=== PATIENT | female | born 2000 | race Caucasian/White ===

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

== ENCOUNTER → 2021-02-04 09:24 | Outpatient (BNVA) | payer MEDICAID, SELFPAY | PROVIDERS: PCP Nurse Practitioner Family; Visit Provider Surgery | DX: Z97.5 Presence of (intrauterine) contraceptive device (principal) | CPT/HCPCS: 99202 ==

== ENCOUNTER 2021-06-11 07:38 | Emergency (ER) | payer MEDICAID, SELFPAY ==
--- NOTE | ~2021-06-11 | CT_ITS ---
EXAMINATION: CT ABDOMEN AND PELVIS WITH CONTRAST CLINICAL INFORMATION: Lower quadrant pain. COMPARISON: Abdominal ultrasound 10/04/2016, pelvic ultrasound 01/24/2017 TECHNIQUE: Multidetector volumetric images were obtained from the superior aspect of the liver through the pubic symphysis following administration 85 mL of Omnipaque 350 intravenous contrast. Sagittal and coronal reformatted images were obtained on the technologist's workstation. Oral contrast: No This CT examination was performed using dose optimization techniques as appropriate, variously including the following: *Automated exposure control *Adjustment of mA and/or kV according to patient size (this includes techniques or standardized protocols for targeted exams where dose is matched to indication/reason for exam; i.e. extremities or head) *Use of iterative reconstruction technique DLP: 593 mGy-cm FINDINGS: There are scattered respiratory motion artifact in the abdomen and upper pelvis. LUNG BASES: The visualized lung bases are unremarkable. LIVER, GALLBLADDER, AND BILIARY TREE: The liver is normal in size, shape, and attenuation. No focal hepatic lesion or biliary ductal dilatation is present. The gallbladder is unremarkable with no evidence of radiopaque gallstones, gallbladder wall thickening, or obvious pericholecystic inflammatory changes. PANCREAS: Pancreatic duct is upper limits of normal within the pancreatic head. Suspect possible divisum duct arrangement. The pancreas is normal in size and contour and attenuation. There is no peripancreatic inflammatory changes. SPLEEN: Unremarkable. ADRENAL GLANDS: Unremarkable. KIDNEYS AND URETERS: The kidneys are normal in size, shape, and attenuation. No hydronephrosis, hydroureter, or calculi seen. No perinephric stranding. BLADDER: Unremarkable. GASTROINTESTINAL TRACT: There is no bowel obstruction or focal inflammatory changes in the bowel or mesentery. Moderate stool is present in the right colon. The appendix is not seen with certainty. There are no inflammatory changes seen around the cecum or terminal ileum. There is no pneumatosis or free air. No ascites or fluid collection. ABDOMINAL WALL: No significant hernia is appreciated. LYMPH NODES: No lymphadenopathy VASCULAR: Unremarkable. PELVIC VISCERA: Incidental dominant follicle left ovary and right ovary, fall from approximately 1.5 cm. Uterus unremarkable. No ascites. OSSEOUS STRUCTURES: Unremarkable. CT/CT abdomen pelvis w con IMPRESSION: 1. No bowel obstruction or focal inflammatory changes in bowel or mesentery. 2. No adnexal mass or ascites. 3. No biliary ductal dilatation or hydronephrosis. 4. Exam degraded by patient respiratory motion artifact.
[2021-06-11 07:46] VITALS: BP 110/76; PULSE 76; RESP 18; TEMP 36.6; O2SAT 100; BMI 18.1
--- NOTE | 2021-06-11 08:06 | ED_ITS ---
HPI - Abdominal Pain General Chief Complaint: Abdominal Pain Stated Complaint: Lower abd pain Time Seen by Provider: 06/11/21 08:02 Source: patient Mode of arrival: ambulatory Limitations: no limitations History of Present Illness MD elicited complaint: abdominal pain Pertinent past history: none Onset (ago): week(s) (1) Pain Consistency: intermittent Location: suprapubic Severity: moderate Quality: cramping Radiation: none Migration to: no migration Exacerbating factors: movement Relieving factors: nothing Associated symptoms: diarrhea and chills Related Data Home Medications Medication Instructions Recorded Confirmed valacyclovir 1 gram tablet 1,000 mg PO DAILY 02/04/21 02/04/21 Allergies Allergy/AdvReac Type Severity Reaction Status Date / Time apple [APPLES] Allergy Unknown THROAT Verified 03/03/21 15:55 ITCHY peach [PEACHES] Allergy Unknown ITCHY Verified 03/03/21 15:55 THROAT Review of Systems Review of Systems Constitutional : No Weight loss, No Fever, No Chills ENT/Mouth : No sore throat, No Rhinorrhea Eyes: No Swelling, No Redness Cardiovascular : No Chest Pain, No SOB, NoEdema Respiratory : No Cough, No Sputum, No Wheezing Gastrointestinal : Positive Nausea, no Vomiting, positive Diarrhea, positive abdominal Pain, No Hematochezia, No Melena Genitourinary : No Dysuria, No Urinary Frequency, No Hematuria, No Urgency Musculoskeletal : No joint pain, No Myalgias, No Joint Swelling Skin : No Skin Lesions, No rash Neuro : No Weakness, No Numbness, No Dizziness, No Headache Psych : No Anxiety/Panic, No Depression Heme/Lymph: No Bruising, No Lymphadenopathy Endocrine : No Polyuria, No Polydipsia All other systems reviewed and are negative. Physical Exam Vital Signs: Vital Signs: Last Vital Signs Temp 98 F 06/11/21 07:46 Pulse 59 06/11/21 08:47 Resp 16 06/11/21 08:47 BP 104/57 L 06/11/21 08:47 Pulse Ox 100 06/11/21 08:47 Body Mass Index 18.1 Appearance: Alert. Oriented X3. No acute distress. Eyes: Pupils equal, round and reactive to light. ENT: Pharynx normal. Neck: Normal inspection. Neck supple. CVS: Normal heart rate and rhythm. Pulses normal. Respiratory: No respiratory distress. Breath sounds normal. Abdomen: Soft and moderate lower abdomina pain no rebound or guarding Skin: Skin warm and dry. Normal skin color. Normal skin turgor. Extremities: No lower extremity edema. No calf ttp Neuro: Oriented X 3. No motor deficit. No sensory deficit. Course Course Course Narrative: patient feels better, stable for DC, stable labs and CT scan MDM - Abdominal Pain MDM Narrative Medical decision making narrative: 20 yo female with no sig PMH here with lower abdominal pain, diarrhea - no prior surgeries no sick contact/food exposure/antibiotics/family hx of IBD at this time will need labs UA/UPT, CT scan to r/o IBD, colitis, dispo per results and findings. IVF, IV morphine for pain. Lab Data Result diagrams: 06/11/21 08:34 06/11/21 08:34 Labs: Lab Results 06/11/21 06/11/21 06/11/21 Range/Units 08:34 08:34 08:34 WBC 5.1 (4.8-10.8) X10*3/uL RBC 4.37 (4.20-5.50) X10*6/uL Hgb 13.7 (12.0-16.0) g/dl Hct 40.4 (37-47) % MCV 92.4 (80-98) fL MCH 31.4 (27.0-33.0) pg MCHC 33.9 (31.0-35.0) g/dl RDW 12.2 (11.0-16.0) % Plt Count 265 (160-400) X10*3/uL MPV 10.4 (9.4-12.3) fL Immature Gran % (Auto) 0.2 (0.0-0.4) % Neut % (Auto) 55.6 (45-73) % Lymph % (Auto) 33.3 (20-40) % [place] % (Auto) 9.3 (2-11) % Eos % (Auto) 1.2 (0-4) % Baso % (Auto) 0.4 (0-2) % Lymph # (Auto) 1.7 (1.2-4.9) X10*3/uL [place] # (Auto) 0.5 (0.1-1.2) X10*3/uL Eos # (Auto) 0.1 (0.0-0.4) X10*3/uL Baso # (Auto) 0.0 (0.0-0.2) X10*3/uL Abs Immat Gran (auto) 0.01 (0.00-0.03) X10*3/uL Absolute Neuts (auto) 2.8 (2.0-8.3) X10*3/uL Absolute Nucleated RBC 0.000 (0.0-0.012) X10*3/uL Nucleated RBC % (auto) 0.0 (0.0-0.2) /100WBC Sodium 137 (135-145) mmol/L Potassium 4.4 (3.3-5.1) mmol/L Chloride 107 (96-108) mmol/L Carbon Dioxide 21 L (22-29) mmol/L Anion Gap 13 (12-20) BUN 8 L D (9-16) mg/dL Creatinine 0.79 (0.5-1.4) mg/dL Estim Creat Clear Calc 73.8 Estimated GFR > 60 Random Glucose 96 (60-115) mg/dL Calcium 9.4 (8.4-10.2) mg/dL Magnesium 1.8 (1.6-2.6) mg/dL Total Bilirubin 0.2 (0.0-1.0) mg/dL Direct Bilirubin < 0.2 (0.0-0.5) mg/dL AST 20 (5-31) U/L ALT 11 (0-31) U/L Alkaline Phosphatase 77 (39-117) U/L Total Protein 7.5 (6.5-8.0) g/dL Albumin 4.4 (3.5-5.0) g/dL Lipase 18 (8-78) U/L Urine Color Urine Appearance Urine pH (5.0-8.0) Ur Specific [place] (1.005-1.025) Urine Protein (NEG-TRACE) MG/DL Urine Glucose (UA) (NEG) MG/DL Urine Ketones (NEG) MG/DL Urine Blood (NEG) Urine Nitrite (NEG) Ur Leukocyte Esterase (NEG) Urine Test (NEGATIVE) COVID-19 (JF) Negative (Negative) COVID-19 Clin Com See Note 06/11/21 06/11/21 Range/Units 08:34 08:34 WBC (4.8-10.8) X10*3/uL RBC (4.20-5.50) X10*6/uL Hgb (12.0-16.0) g/dl Hct (37-47) % MCV (80-98) fL MCH (27.0-33.0) pg MCHC (31.0-35.0) g/dl RDW (11.0-16.0) % Plt Count (160-400) X10*3/uL MPV (9.4-12.3) fL Immature Gran % (Auto) (0.0-0.4) % Neut % (Auto) (45-73) % Lymph % (Auto) (20-40) % [place] % (Auto) (2-11) % Eos % (Auto) (0-4) % Baso % (Auto) (0-2) % Lymph # (Auto) (1.2-4.9) X10*3/uL [place] # (Auto) (0.1-1.2) X10*3/uL Eos # (Auto) (0.0-0.4) X10*3/uL Baso # (Auto) (0.0-0.2) X10*3/uL Abs Immat Gran (auto) (0.00-0.03) X10*3/uL Absolute Neuts (auto) (2.0-8.3) X10*3/uL Absolute Nucleated RBC (0.0-0.012) X10*3/uL Nucleated RBC % (auto) (0.0-0.2) /100WBC Sodium (135-145) mmol/L Potassium (3.3-5.1) mmol/L Chloride (96-108) mmol/L Carbon Dioxide (22-29) mmol/L Anion Gap (12-20) BUN (9-16) mg/dL Creatinine (0.5-1.4) mg/dL Estim Creat Clear Calc Estimated GFR Random Glucose (60-115) mg/dL Calcium (8.4-10.2) mg/dL Magnesium (1.6-2.6) mg/dL Total Bilirubin (0.0-1.0) mg/dL Direct Bilirubin (0.0-0.5) mg/dL AST (5-31) U/L ALT (0-31) U/L Alkaline Phosphatase (39-117) U/L Total Protein (6.5-8.0) g/dL Albumin (3.5-5.0) g/dL Lipase (8-78) U/L Urine Color YELLOW Urine Appearance CLEAR Urine pH 6.0 (5.0-8.0) Ur Specific [place] 1.025 (1.005-1.025) Urine Protein NEG (NEG-TRACE) MG/DL Urine Glucose (UA) NEG (NEG) MG/DL Urine Ketones NEG (NEG) MG/DL Urine Blood NEG (NEG) Urine Nitrite NEG (NEG) Ur Leukocyte Esterase NEG (NEG) Urine Test NEGATIVE (NEGATIVE) COVID-19 (JF) (Negative) COVID-19 Clin Com Discharge Plan Discharge Clinical Impression: Abdominal pain Qualifiers: Abdominal location: lower abdomen, unspecified Qualified Code(s): R10.30 - Lower abdominal pain, unspecified Patient Disposition: Home, Self-Care Instructions: Abdominal Pain (ED) Additional Instructions: return to ED for any worsening symptoms or concerns Prescriptions: No Action valacyclovir 1 gram tablet 1,000 mg PO DAILY RF: 0 Referrals: [facility] [Primary Care Provider] - 2 days (if not better) Stand Alone Forms: Work/School Release [facility] Past Medical History Attestation statement: The following information was validated with the patient. Medical History COVID-19 virus infection Herpes Surgical History [place] teeth extracted Family History Family History Mother Cancer of unknown origin Social History Social History (Updated 06/11/21 @ 08:19 by Breanna Eubanks DO) Alcohol intake: unknown Patient Tobacco Use Status: Never used Tobacco Use of substances other than those prescribed or required for medical reasons: Yes Substance Use Type: Marijuana Advance Directives: No Advance Directives Information Provided: Yes Patient : No
[2021-06-11 08:44] LABS: MANUAL DIFF FLAG NO
[2021-06-11] MEDS: 0.9 % Sodium Chloride 1,000 ML 999 ML IVCONT (08:45)
[2021-06-11] MEDS: Ketorolac Tromethamine 15 MG/ML VIAL IVPUSH (08:45)
[2021-06-11 08:47] VITALS: BP 104/57; PULSE 59; RESP 16; O2SAT 100
[2021-06-11 08:52] LABS: Basophils Percent Auto 0.4 % (0-2); Eosinophils Absolute Auto 0.1 X10*3/uL (0.0-0.4); Eosinophils Percent Auto 1.2 % (0-4); Hematocrit 40.4 % (37-47); Hemoglobin 13.7 g/dl (12.0-16.0); Imm Gran Abs Auto 0.01 X10*3/uL (0.00-0.03); Imm Gran Pct Auto 0.2 % (0.0-0.4); Lymphocytes Absolute Auto 1.7 X10*3/uL (1.2-4.9); Lymphocytes Percent Auto 33.3 % (20-40); Mean Corpuscular HGB Conc 33.9 g/dl (31.0-35.0); Mean Corpuscular Hemoglobin 31.4 pg (27.0-33.0); Mean Corpuscular Volume 92.4 fL (80-98); Mean Platelet Volume 10.4 fL (9.4-12.3); Monocytes Absolute Auto 0.5 X10*3/uL (0.1-1.2); Monocytes Percent Auto 9.3 % (2-11); Neutrophils Absolute Auto 2.8 X10*3/uL (2.0-8.3); Neutrophils Percent Auto 55.6 % (45-73); Platelet Count 265 X10*3/uL (160-400); Red Blood Count 4.37 X10*6/uL (4.20-5.50); Red Cell Distribution Width 12.2 % (11.0-16.0); White Blood Count 5.1 X10*3/uL (4.8-10.8)
[2021-06-11 08:53] LABS: Glucose Urine UA NEG (NEG); Leukocyte Esterase Urine NEG (NEG); Nitrite Urine NEG (NEG); Specific Gravity - Urine 1.025 (1.005-1.025); Urine Blood NEG (NEG); Urine Ketones NEG (NEG); Urine Protein NEG (NEG-TRACE)
[2021-06-11 08:55] LABS: Appearance Urine CLEAR; Color Urine YELLOW; UPreg QC Valid YES; Urine Pregnancy NEGATIVE (NEGATIVE)
[2021-06-11 09:07] LABS: COVID-19 Test Negative (Negative)
[2021-06-11 09:34] LABS: Alanine Aminotransferase 11 U/L (0-31); Albumin Level 4.4 g/dL (3.5-5.0); Alkaline Phosphatase 77 U/L (39-117); Anion Gap 13 (12-20); Aspartate Amino Transferase 20 U/L (5-31); Bilirubin Direct < 0.2 mg/dL (0.0-0.5); Bilirubin Total 0.2 mg/dL (0.0-1.0); Blood Urea Nitrogen 8 mg/dL (9-16); Calcium 9.4 mg/dL (8.4-10.2); Carbon Dioxide 21 mmol/L (22-29); Chloride 107 mmol/L (96-108); Creatinine Clr Calc Pharmacy 73.8; Estimated Glomerular Filt Rate > 60; Glucose Random 96 mg/dL (60-115); Lipase 18 U/L (8-78); Magnesium 1.8 mg/dL (1.6-2.6); Potassium 4.4 mmol/L (3.3-5.1); Sodium 137 mmol/L (135-145); Total Protein 7.5 g/dL (6.5-8.0)
[2021-06-11] MEDS: iohexoL 350 MG/ML 100 ML INFUS..BTL IV (10:38)
== END 2021-06-11 12:15 | disposition home or self-care (01) ==
PROVIDERS: Emergency Provider Emergency Medicine
DX: R10.30 Lower abdominal pain, unspecified (principal); F12.90 Cannabis use, unspecified, uncomplicated; Z20.822 Contact with and (suspected) exposure to COVID-19; Z79.899 Other long term (current) drug therapy
CPT/HCPCS: 36415; 74177; 80048; 80076; 81003; 81025; 83690; 83735; 85025; 87635; 96365; 96375; 99284; J1885; J2270; J2405; Q9967

== ENCOUNTER 2021-12-26 02:11 | Emergency (ER) | payer MEDICAID, SELFPAY ==
[2021-12-26 02:18] VITALS: BP 108/82; BP 128/90; PULSE 110; PULSE 92; RESP 20; TEMP 36.3; O2SAT 100; BMI 32.3
--- NOTE | 2021-12-26 03:11 | ECG_ITS ---
Test Reason : nausea/vomiting Blood Pressure : / mmHG Vent. Rate : 076 BPM Atrial Rate : 076 BPM P-R Int : 134 ms QRS Dur : 076 ms QT Int : 392 ms P-R-T Axes : 031 053 028 degrees QTc Int : 441 ms Normal sinus rhythm with sinus arrhythmia Normal ECG When compared with ECG of 11-JUL-2019 23:35, Nonspecific T wave abnormality no longer evident in Anterior leads Referred By: Renetta Hunter Electronically Signed By:SUSIE SANCHEZ
[2021-12-26 03:24] VITALS: BP 113/69; PULSE 95; RESP 16; TEMP 36.8; O2SAT 95
[2021-12-26 03:44] LABS: Basophils Percent Auto 0.2 % (0-2); Eosinophils Percent Auto 0.1 % (0-4); Hematocrit 42.1 % (37.0-47.0); Hemoglobin 14.3 g/dl (12.0-16.0); Imm Gran Abs Auto 0.09 X10*3/uL (0.00-0.03); Imm Gran Pct Auto 0.4 % (0.0-0.4); Lymphocytes Absolute Auto 1.6 X10*3/uL (1.2-4.9); Lymphocytes Percent Auto 7.8 % (20-40); MANUAL DIFF FLAG SCAN; Mean Corpuscular Hemoglobin 29.6 pg (27.0-33.0); Mean Corpuscular Volume 87.2 fL (80.0-98.0); Monocytes Absolute Auto 1.6 X10*3/uL (0.1-1.2); Monocytes Percent Auto 7.9 % (2-11); Neutrophils Absolute Auto 16.9 x10*3/uL (2.0-8.3); Neutrophils Percent Auto 83.6 % (45-73); Platelet Count 332 X10*3/uL (160-400); Red Blood Count 4.83 X10*6/uL (4.20-5.50); Red Cell Distribution Width 12.4 % (11.0-16.0); SCAN SMEAR FLAG 1; White Blood Count 20.2 X10*3/uL (4.8-10.8)
[2021-12-26 03:49] LABS: SLIDE REVIEW VERIFIED
[2021-12-26 03:58] LABS: COVID-19 Test Negative (Negative)
[2021-12-26] MEDS: ondansetron HCL 4 MG/2 ML VIAL IVPUSH ×2 (04:00→09:22)
[2021-12-26 04:04] VITALS: BP 110/77; PULSE 85; RESP 14; TEMP 36.6; O2SAT 99
[2021-12-26 04:04] LABS: Alanine Aminotransferase 21 U/L (0-31); Albumin Level 4.3 g/dL (3.5-5.0); Alkaline Phosphatase 78 U/L (39-117); Anion Gap 14 (12-20); Aspartate Amino Transferase 21 U/L (5-31); Bilirubin Direct 0.2 mg/dL (0.0-0.5); Bilirubin Total 0.4 mg/dL (0.0-1.0); Blood Urea Nitrogen 10 mg/dL (9-16); Calcium 9.3 mg/dL (8.4-10.2); Carbon Dioxide 22 mmol/L (22-29); Chloride 106 mmol/L (96-108); Creatinine Clr Calc Pharmacy 96.1; Estimated Glomerular Filt Rate > 60; Glucose Random 114 mg/dL (60-115); Lipase 13 U/L (8-78); Potassium 3.5 mmol/L (3.3-5.1); Sodium 138 mmol/L (135-145); Total Protein 7.7 g/dL (6.5-8.0)
[2021-12-26 04:11] LABS: Appearance Urine HAZY; Color Urine YELLOW; Glucose Urine UA NEG (NEG); Leukocyte Esterase Urine NEG (NEG); Nitrite Urine NEG (NEG); PH 7.5 (5.0-8.0); UACC Culture Trigger NO; Urine Blood 3+ (NEG); Urine Ketones 5 MG/DL (NEG); Urine Protein NEG (NEG-TRACE)
[2021-12-26 04:14] LABS: UPreg QC Valid YES; Urine Pregnancy NEGATIVE (NEGATIVE)
--- NOTE | 2021-12-26 04:27 | ED.NAVMDI ---
HPI - Nausea/Vomiting/Diarrhea General Chief complaint: Nausea/Vomiting/Diarrhea Stated complaint: uncontrollable bladder/vomiting/diarrhea Time Seen by Provider: 12/26/21 03:45 Source: patient Mode of arrival: EMS History of Present Illness HPI Narrative: 21-year-old female without significant past medical history presents with onset of nausea, vomiting and associated diarrhea that began at approximately midnight but she denies any associated abdominal pain, shortness of breath, fever, chills and states that she last ate pizza and is unsure if her symptoms are due to bed food . In addition, patient denies any urinary pain /burning / frequency and states that her LMP is October/2021. Patient does endorse that she smoke marijuana at approximately 14:00 yesterday but otherwise she has had these symptoms previously but they were associated with her alcohol intake. She denies any recent alcohol intake. Patient is concerned about having urinary incontinence with significant episode of nausea and vomiting. Related Data Home Medications Medication Instructions Recorded Confirmed valacyclovir 1 gram tablet 1,000 mg PO DAILY 02/04/21 02/04/21 Previous Rx's Medication Instructions Recorded ondansetron 4 mg disintegrating 4 mg PO Q6H PRN #7 tab 12/26/21 tablet Allergies Allergy/AdvReac Type Severity Reaction Status Date / Time apple [APPLES] Allergy Unknown THROAT Verified 03/03/21 15:55 ITCHY peach [PEACHES] Allergy Unknown ITCHY Verified 03/03/21 15:55 THROAT Review of Systems Review of Systems: Pertinent Positives and negatives as per the HPI 10 point review of systems is otherwise negative. PMFSH Past Medical History Source: nursing notes reviewed Medical History COVID-19 virus infection Herpes Surgical History [place] teeth extracted Family History Family History Mother Cancer of unknown origin Social History Social History Alcohol intake: unknown Patient Tobacco Use Status: Never used Tobacco Use of substances other than those prescribed or required for medical reasons: Refusing to respond Substance Use Type: Marijuana Advance Directives: No Patient : No Physical Exam Vital Signs: Vital Signs: Last Vital Signs Temp 97.6 F 12/26/21 06:02 Pulse 93 12/26/21 07:01 Resp 14 12/26/21 07:01 BP 108/65 12/26/21 07:01 Pulse Ox 99 12/26/21 07:01 BMI result Body Mass Index 32.3 VITAL SIGNS: Reviewed. GENERAL: Well developed, well nourished, in no acute distress. HEAD: Normocephalic/atraumatic EYES: PERRLA, EOMI OROPHARYNX: no oral lesions noted, posterior pharynx clear LUNGS: Normal breath sounds. No adventitious sounds or accessory muscle use. SpO2<99> CARDIOVASCULAR: Regular rate and rhythm without noted murmurs ABDOMEN: Soft, non-tender, non-distended with bowel sounds. SKIN: Inspection of the skin reveals no rashes NEUROLOGIC: Alert and oriented x 4. Strength and sensation to light touch were grossly intact x 4. Course Course Course Narrative: 21-year-old female with history and clinical presentation suggestive of possible gastroenteritis versus marijuana associated nausea and vomiting. Will rule out ectopic / and at this time doubt renal colic, appendicitis. Review of all investigations without acute findings in noted leukocytosis And is felt to be stress response to patient's multiple episodes of nausea and vomiting as abdominal exam is otherwise benign and there are no other sources of infectious etiology. patient received IV fluid resuscitation, antiemetics and on p.o. challenge is noted to tolerate oral intake without difficulty. Patient was also provided with some medication for nausea and vomiting induced gastritis. MDM - Nausea/Vomiting/Diarrhea Lab Data Result diagrams: 12/26/21 03:35 12/26/21 03:35 Labs: Lab Results 12/26/21 12/26/21 12/26/21 Range/Units 03:35 03:35 03:35 WBC 20.2 H (4.8-10.8) X10*3/uL RBC 4.83 (4.20-5.50) X10*6/uL Hgb 14.3 (12.0-16.0) g/dl Hct 42.1 (37.0-47.0) % MCV 87.2 (80.0-98.0) fL MCH 29.6 (27.0-33.0) pg MCHC 34.0 (31.0-35.0) g/dl RDW 12.4 (11.0-16.0) % Plt Count 332 (160-400) X10*3/uL MPV 10.0 (9.4-12.3) fL Immature Gran % (Auto) 0.4 (0.0-0.4) % Neut % (Auto) 83.6 H (45-73) % Lymph % (Auto) 7.8 L (20-40) % [place] % (Auto) 7.9 (2-11) % Eos % (Auto) 0.1 (0-4) % Baso % (Auto) 0.2 (0-2) % Lymph # (Auto) 1.6 (1.2-4.9) X10*3/uL [place] # (Auto) 1.6 H (0.1-1.2) X10*3/uL Eos # (Auto) 0.0 (0.0-0.4) X10*3/uL Baso # (Auto) 0.0 (0.0-0.2) X10*3/uL Abs Immat Gran (auto) 0.09 H (0.00-0.03) X10*3/uL Absolute Neuts (auto) 16.9 H (2.0-8.3) x10*3/uL Absolute Nucleated RBC 0.000 (0.0-0.012) X10*3/uL Nucleated RBC % (auto) 0.0 (0.0-0.2) /100WBC Smear Tech's Comments VERIFIED Sodium 138 (135-145) mmol/L Potassium 3.5 D (3.3-5.1) mmol/L Chloride 106 (96-108) mmol/L Carbon Dioxide 22 (22-29) mmol/L Anion Gap 14 (12-20) BUN 10 (9-16) mg/dL Creatinine 0.81 (0.5-1.4) mg/dL Estim Creat Clear Calc 96.1 Estimated GFR > 60 Random Glucose 114 (60-115) mg/dL Calcium 9.3 (8.4-10.2) mg/dL Total Bilirubin 0.4 (0.0-1.0) mg/dL Direct Bilirubin 0.2 (0.0-0.5) mg/dL AST 21 (5-31) U/L ALT 21 (0-31) U/L Alkaline Phosphatase 78 (39-117) U/L Total Protein 7.7 (6.5-8.0) g/dL Albumin 4.3 (3.5-5.0) g/dL Lipase 13 (8-78) U/L Urine Color Urine Appearance Urine pH (5.0-8.0) Ur Specific [place] (1.005-1.025) Urine Protein (NEG-TRACE) MG/DL Urine Glucose (UA) (NEG) MG/DL Urine Ketones (NEG) MG/DL Urine Blood (NEG) Urine Nitrite (NEG) Ur Leukocyte Esterase (NEG) Urine RBC (0) /HPF Urine WBC (0-4) /HPF Ur Squamous Epith Cells /LPF Calcium Oxalate Crystal /LPF Urine Bacteria /LPF Urine Mucus /LPF Urine Test (NEGATIVE) COVID-19 (JF) Negative (Negative) COVID-19 Clin Com See Note 12/26/21 12/26/21 Range/Units 03:59 03:59 WBC (4.8-10.8) X10*3/uL RBC (4.20-5.50) X10*6/uL Hgb (12.0-16.0) g/dl Hct (37.0-47.0) % MCV (80.0-98.0) fL MCH (27.0-33.0) pg MCHC (31.0-35.0) g/dl RDW (11.0-16.0) % Plt Count (160-400) X10*3/uL MPV (9.4-12.3) fL Immature Gran % (Auto) (0.0-0.4) % Neut % (Auto) (45-73) % Lymph % (Auto) (20-40) % [place] % (Auto) (2-11) % Eos % (Auto) (0-4) % Baso % (Auto) (0-2) % Lymph # (Auto) (1.2-4.9) X10*3/uL [place] # (Auto) (0.1-1.2) X10*3/uL Eos # (Auto) (0.0-0.4) X10*3/uL Baso # (Auto) (0.0-0.2) X10*3/uL Abs Immat Gran (auto) (0.00-0.03) X10*3/uL Absolute Neuts (auto) (2.0-8.3) x10*3/uL Absolute Nucleated RBC (0.0-0.012) X10*3/uL Nucleated RBC % (auto) (0.0-0.2) /100WBC Smear Tech's Comments Sodium (135-145) mmol/L Potassium (3.3-5.1) mmol/L Chloride (96-108) mmol/L Carbon Dioxide (22-29) mmol/L Anion Gap (12-20) BUN (9-16) mg/dL Creatinine (0.5-1.4) mg/dL Estim Creat Clear Calc Estimated GFR Random Glucose (60-115) mg/dL Calcium (8.4-10.2) mg/dL Total Bilirubin (0.0-1.0) mg/dL Direct Bilirubin (0.0-0.5) mg/dL AST (5-31) U/L ALT (0-31) U/L Alkaline Phosphatase (39-117) U/L Total Protein (6.5-8.0) g/dL Albumin (3.5-5.0) g/dL Lipase (8-78) U/L Urine Color YELLOW Urine Appearance HAZY Urine pH 7.5 (5.0-8.0) Ur Specific [place] 1.020 (1.005-1.025) Urine Protein NEG (NEG-TRACE) MG/DL Urine Glucose (UA) NEG (NEG) MG/DL Urine Ketones 5 (NEG) MG/DL Urine Blood 3+ H (NEG) Urine Nitrite NEG (NEG) Ur Leukocyte Esterase NEG (NEG) Urine RBC 1-4 (0) /HPF Urine WBC 1-4 (0-4) /HPF Ur Squamous Epith Cells 2+ /LPF Calcium Oxalate Crystal 2+ /LPF Urine Bacteria 3+ /LPF Urine Mucus 2+ /LPF Urine Test NEGATIVE (NEGATIVE) COVID-19 (JF) (Negative) COVID-19 Clin Com ECG Data Attestation: I personally reviewed and interpreted this ECG as follows: Prior ECG tracings: available for review Interpretation: NSR, HR- 76, no STEMI, VA /QRS /QTC are within normal limits. Discharge Plan Discharge Clinical Impression: Gastroenteritis Patient Disposition: Home, Self-Care Instructions: Gastritis (ED), Diet for Stomach Ulcers and Gastritis (ED), Gastroenteritis (ED) Additional Instructions: Recommend using [id number] Maalox for additional symptom relief of your stomach. Follow-up with your primary care provider on Tuesday. Return to the ER for worsening symptoms. Prescriptions: New ondansetron 4 mg tablet,disintegrating 4 mg PO Q6H PRN (Reason: nausea and vomiting) Qty: 7 0RF No Action valacyclovir 1 gram tablet 1,000 mg PO DAILY 0RF
[2021-12-26 04:32] LABS: Bacteria Urine 3+ /LPF; Mucus Urine 2+ /LPF; Squamous Epithelial Cell Urine 2+ /LPF
[2021-12-26 04:33] LABS: Calcium Oxalate Crystals Urine 2+ /LPF
[2021-12-26] MEDS: 0.9 % Sodium Chloride 1,000 ML 999 ML IV (04:44)
[2021-12-26 06:02] VITALS: BP 111/73; PULSE 75; RESP 16; TEMP 36.4; O2SAT 100
[2021-12-26 07:01] VITALS: BP 108/65; PULSE 93; RESP 14; O2SAT 99
[2021-12-26] MEDS: Prochlorperazine Edisylate 10 MG/2 ML VIAL IVPUSH (07:23)
[2021-12-26] MEDS: Lidocaine HCl Viscous 2 % 15 ML SOLUTION 10 ML MUCOUS MEM (08:25)
[2021-12-26] MEDS: Magnesium Hydrox/Alum Hydrox 30 ML ORAL.SUSP PO (08:25)
[2021-12-26 09:25] VITALS: BP 110/62; PULSE 96; RESP 14; O2SAT 100
== END 2021-12-26 10:24 | disposition home or self-care (01) ==
PROVIDERS: Student in an Organized Health Care Education/Training Program; Emergency Provider Emergency Medicine
DX: K52.9 Noninfective gastroenteritis and colitis, unspecified (principal); Z20.822 Contact with and (suspected) exposure to COVID-19; F12.90 Cannabis use, unspecified, uncomplicated
CPT/HCPCS: 80048; 80076; 81001; 81025; 83690; 85025; 87635; 93005; 96361; 96374; 96375; 96376; 99284; 99285; J2405

== ENCOUNTER → 2022-02-02 14:34 | Outpatient (BNVA) | payer MEDICAID, SELFPAY | PROVIDERS: PCP Nurse Practitioner Family; Referring Provider Nurse Practitioner Family; Visit Provider Surgery | DX: Z97.5 Presence of (intrauterine) contraceptive device (principal) | CPT/HCPCS: 99212 ==

== ENCOUNTER → 2022-03-02 10:18 | Outpatient (BNVA) | payer MEDICAID, SELFPAY | PROVIDERS: PCP Pediatrics; Visit Provider Surgery | DX: R10.11 Right upper quadrant pain (principal) | CPT/HCPCS: 99212 ==

== ENCOUNTER 2022-03-03 09:25 | Day surgery (SDC) | payer MEDICAID, SELFPAY ==
[2022-02-25 13:54] VITALS: BMI 23.0
[2022-03-03 09:55] VITALS: BP 113/73; PULSE 89; RESP 16; TEMP 36.5; O2SAT 97
[2022-03-03 09:56] LABS: UPreg QC Valid YES; Urine Pregnancy NEGATIVE (NEGATIVE)
--- NOTE | 2022-03-03 10:00 | P.CONAN_ITS ---
[facility] Active Problems Active Problems: All Active Problems (Updated 03/02/22 @ 10:42 by John Song MD) Right upper quadrant abdominal pain (Acute) Chronic cholecystitis (Acute) Nexplanon in place (Acute) Past Medical History Medical History COVID-19 vaccine series completed COVID-19 virus infection Depression GERD (gastroesophageal reflux disease) Herpes Functional capacity: independent ambulation Patient : No Family History Family History Mother Cancer of unknown origin Family history of problems with anesthesia: No Surgical History Surgical History [place] teeth extracted History of Problems with Anesthesia: No Social History Social History Are you a primary health care / medical job titles to a significant other at home: No Do you presently have visiting nurse or other home services: No Alcohol intake: unknown Patient Tobacco Use Status: Never used Tobacco Use of substances other than those prescribed or required for medical reasons: Yes Substance Use Type: Marijuana Substance Use Type Other:: advised to hold pre-op Substance Use Frequency: Daily Have you been hit, kicked, punched, or otherwise hurt by someone within the past year? If so, by whom?: No Are you DNR?: No Advance Directives: No Advance Directives Information Provided: Yes (brochure mailed) Advance Directives on File: No Recently lost weight without trying: No Nutrition Risks: No Nutritional Risk Patient : No FDLMP: 02/22/22 : No Poor oral hygiene: No Meds Allergies Allergy/AdvReac Type Severity Reaction Status Date / Time tree and shrub pollen Allergy Mild Unknown Verified 02/26/22 14:37 apple [APPLES] Allergy Unknown THROAT Verified 03/03/21 15:55 ITCHY peach [PEACHES] Allergy Unknown ITCHY Verified 03/03/21 15:55 THROAT Active Medications: Current Medications Cefazolin Sodium/Dextrose (Ancef) 2 gm in 50 mls @ 100 mls/hr IV PREOP ONE Stop: 03/03/22 10:12 Lactated Ringer's (Lr) 1,000 mls @ 100 mls/hr IVCONT .Q10H JANEY Home Medications Medication Instructions Recorded Confirmed Last Taken Type valacyclovir 1 gram tablet 1,000 mg PO DAILY 02/04/21 02/25/22 Unknown History omeprazole magnesium 20 mg 20 mg PO DAILY 02/25/22 03/02/22 Unknown History tablet,delayed release (Prilosec OTC) hydroxyzine HCl 10 mg tablet 10 - 20 mg PO BID PRN 03/02/22 03/02/22 Unknown History Exam Exam Date and Time: March 03, 2022 1000 Height,Weight and Vital Signs: Height 4 ft 11 in Weight 51.71 kg Last Vital Signs Temp 97.7 F 03/03/22 09:55 Pulse 89 03/03/22 09:55 Resp 16 03/03/22 09:55 BP 113/73 03/03/22 09:55 Pulse Ox 97 03/03/22 09:55 Pertinent Lab Results Pertinent Lab Results: Laboratory Tests 03/03/22 09:46 Urine Test NEGATIVE Assessment and Plan Final Anesthetic Review Family History of Problems with Anesthesia: No History of Problems with Anesthesia: No
--- NOTE | 2022-03-03 10:28 | MHC.SHP ---
Pre-Procedural Eval Section A Date of Service: 03/03/22 The patient is an INPATIENT: No Changes since office visit: Yes Patient answered all questions; No Cold of Flu in the past 2 weeks, No New Medical Problems and No Changes in Medication The History & Physical has been completed within 30 days and I have reviewed it.: Yes Section B Chief Complaint: Presence of (intrauterine) contraceptive device Allergies: Allergies Allergy/AdvReac Type Severity Reaction Status Date / Time tree and shrub pollen Allergy Mild Unknown Verified 02/26/22 14:37 apple [APPLES] Allergy Unknown THROAT Verified 03/03/21 15:55 ITCHY peach [PEACHES] Allergy Unknown ITCHY Verified 03/03/21 15:55 THROAT Plan Diagnosis/Plan: Unchanged I have reviewed the history and physical and performed a pertinent physical examination on my patient. No changes have occurred unless specified.
--- NOTE | 2022-03-03 11:01 | P.CONAN_ITS ---
[facility], [facility] Active Problems Active Problems: All Active Problems (Updated 03/02/22 @ 10:42 by John Song MD) Right upper quadrant abdominal pain (Acute) Chronic cholecystitis (Acute) Nexplanon in place (Acute) Past Medical History Medical History COVID-19 vaccine series completed COVID-19 virus infection Depression GERD (gastroesophageal reflux disease) Herpes Functional capacity: independent ambulation Family History Family History Mother Cancer of unknown origin Family history of problems with anesthesia: No Surgical History Surgical History [place] teeth extracted History of Problems with Anesthesia: No Social History Social History Are you a primary personal care assistant to a significant other at home: No Do you presently have visiting nurse or other home services: No Alcohol intake: unknown Patient Tobacco Use Status: Never used Tobacco Use of substances other than those prescribed or required for medical reasons: Yes Substance Use Type: Marijuana Substance Use Type Other:: advised to hold pre-op Substance Use Frequency: Daily Have you been hit, kicked, punched, or otherwise hurt by someone within the past year? If so, by whom?: No Are you DNR?: No Advance Directives: No Advance Directives Information Provided: Yes (brochure mailed) Advance Directives on File: No Recently lost weight without trying: No Nutrition Risks: No Nutritional Risk Patient : No FDLMP: 02/22/22 : No Poor oral hygiene: No Meds Allergies Allergy/AdvReac Type Severity Reaction Status Date / Time tree and shrub pollen Allergy Mild Unknown Verified 02/26/22 14:37 apple [APPLES] Allergy Unknown THROAT Verified 03/03/21 15:55 ITCHY peach [PEACHES] Allergy Unknown ITCHY Verified 03/03/21 15:55 THROAT Active Medications: Current Medications Lactated Ringer's (Lr) 1,000 mls @ 100 mls/hr IVCONT .Q10H [facility] Home Medications Medication Instructions Recorded Confirmed Last Taken Type valacyclovir 1 gram tablet 1,000 mg PO DAILY 02/04/21 02/25/22 Unknown History omeprazole magnesium 20 mg 20 mg PO DAILY 02/25/22 03/02/22 Unknown History tablet,delayed release (Prilosec OTC) hydroxyzine HCl 10 mg tablet 10 - 20 mg PO BID PRN 03/02/22 03/02/22 Unknown History Exam Exam Date and Time: March 03, 2022 1101 Height,Weight and Vital Signs: Height 4 ft 11 in Weight 51.71 kg Last Vital Signs Temp 97.7 F 03/03/22 09:55 Pulse 89 03/03/22 09:55 Resp 16 03/03/22 09:55 BP 113/73 03/03/22 09:55 Pulse Ox 97 03/03/22 09:55 Pertinent Lab Results Pertinent Lab Results: Laboratory Tests 03/03/22 09:46 Urine Test NEGATIVE Airway Mallampati Class: II TM Dist: >3cm Neck ROM: Full Heart: RRR Lungs: CTA Assessment and Plan Final Anesthetic Review Family History of Problems with Anesthesia: No History of Problems with Anesthesia: No NPO: Yes ASA Class: II Final Preanesthetic Review: No Changes in Pt Med Stat, Meds/Allgs Chart Reviewed, Consent Obtained/Reviewed and Anes Risks/Benef Reviewed Patient Risk: Low Procedure Risk: Low Anesthetic Plan Anesthetic Plan: GA Disposition: Standard PACU
--- NOTE | 2022-03-03 11:14 | W.PM.OPN ---
Operative Note Operative Note Date of Service: 03/03/22 Narrative: Preoperative diagnosis: Nexplanon left upper arm Postoperative diagnosis: Same Procedure: Removal of Nexplanon left upper arm Surgeon: John Song MD Phosphoric Acid Supervisor: Brandi Allen PA-C Anesthesia: General LMA Indications for procedure: 21-year-old female patient with a previous history of a Nexplanon inserted in the left upper arm. Patient presents now for removal of this Nexplanon. Operative findings: Nexplanon found in the left upper arm Specimen: Nexplanon left upper arm Estimated blood loss: 2 mL Complications: None Procedure details: Patient was brought to the OR placed in a supine position. After administering general anesthesia the left arm was prepped with ChloraPrep and draped in a sterile fashion. A surgical time-out was called the consent confirmed. Patient received preoperative antibiotics and Venodyne boots were placed. Local anesthesia consisting of 0.25% Sensorcaine was infiltrated in a longitudinal fashion directly over the palpable Nexplanon. A 2 cm incision was then made directly over the Nexplanon. Gentle dissection within the subcutaneous tissue revealed the Nexplanon which was densely adherent to the surrounding subcutaneous tissue. Metzenbaum scissors then used to dissect into the capsule surrounding the device. This was then grasped with a hemostat and removed. The device was sent to pathology for gross evaluation. Hemostasis was assured using electrocautery. Skin was then closed using interrupted 4-0 nylon sutures. Sterile dressings consisting of 2 x 2 gauze and Tegaderm were then applied. The patient tolerated the procedure well. Sponge, instrument, and needle counts reported as correct. The patient was transferred to PACU in stable condition.
[2022-03-03 11:25] VITALS: BP 107/71; PULSE 83; RESP 16; TEMP 37; O2SAT 100
[2022-03-03 11:30] VITALS: BP 108/68; PULSE 71; RESP 16; O2SAT 100
[2022-03-03 11:35] VITALS: BP 101/71; PULSE 75; RESP 16; O2SAT 100
[2022-03-03 11:40] VITALS: BP 113/74; PULSE 73; RESP 16; O2SAT 100
[2022-03-03 11:55] VITALS: BP 114/67; PULSE 70; RESP 16; TEMP 36.3; O2SAT 100
== END 2022-03-03 12:25 | disposition home or self-care (01) ==
PROVIDERS: Anesthesiology; PCP Pediatrics; Visit Provider Surgery
PROC: (CPT 11982; principal; 2022-03-03 11:20)
DX: Z30.46 Encounter for surveillance of implantable subdermal contraceptive (principal); B00.9 Herpesviral infection, unspecified; Z86.16 Personal history of COVID-19; Z79.899 Other long term (current) drug therapy; F12.90 Cannabis use, unspecified, uncomplicated
CPT/HCPCS: 11982; 81025; 88300; J0690; J2250; J2405; J3010

== ENCOUNTER → 2022-03-16 14:38 | Outpatient (BNVA) | payer MEDICAID, SELFPAY | PROVIDERS: PCP Pediatrics; Referring Provider Pediatrics; Visit Provider Surgery | DX: Z48.817 Encounter for surgical aftercare following surgery on the skin and subcutaneous tissue (principal) | CPT/HCPCS: 99212 ==

== ENCOUNTER 2022-03-25 08:28 | Emergency (ER) | payer MEDICAID, SELFPAY ==
[2022-03-25 08:35] VITALS: BP 124/80; PULSE 105; RESP 16; TEMP 36.7; O2SAT 100; BMI 22.8
--- NOTE | 2022-03-25 08:43 | ED.ABDPAIN ---
HPI - Abdominal Pain General Chief Complaint: General Medical Stated Complaint: ABD PAIN,NAUSEA,DIARRHEA Time Seen by Provider: 03/25/22 08:41 Source: patient and old records reviewed Mode of arrival: EMS Limitations: no limitations History of Present Illness MD elicited complaint: abdominal pain Pertinent past history: other (hx of bouts with her stomach in the past) Onset (ago): day(s) (this morning) Pain Consistency: constant Location: suprapubic Severity: moderate Quality: cramping and other (pain) Radiation: none Migration to: no migration Exacerbating factors: movement Relieving factors: nothing Context: history of similar episodes Associated symptoms: nausea, vomiting and other (weakness, dizziness) Related Data Home Medications Medication Instructions Recorded Confirmed valacyclovir 1 gram tablet 1,000 mg PO DAILY 02/04/21 02/25/22 omeprazole magnesium 20 mg 20 mg PO DAILY 02/25/22 03/02/22 tablet,delayed release (Prilosec OTC) hydroxyzine HCl 10 mg tablet 10 - 20 mg PO BID PRN 03/02/22 03/02/22 Previous Rx's Medication Instructions Recorded ondansetron 4 mg disintegrating 4 mg PO Q8H PRN #20 tab 03/25/22 tablet Allergies Allergy/AdvReac Type Severity Reaction Status Date / Time tree and shrub pollen Allergy Mild Unknown Verified 03/16/22 15:10 apple [APPLES] Allergy Unknown THROAT Verified 03/16/22 15:10 ITCHY peach [PEACHES] Allergy Unknown ITCHY Verified 03/16/22 15:10 THROAT Review of Systems Review of Systems Constitutional : No Weight loss, No Fever, No Chills ENT/Mouth : No sore throat, No Rhinorrhea Eyes: No Swelling, No Redness Cardiovascular : No Chest Pain, No SOB, NoEdema Respiratory : No Cough, No Sputum, No Wheezing Gastrointestinal : Positive Nausea, Positive Vomiting, no Diarrhea, positive abdominal Pain, No Hematochezia, No Melena Genitourinary : No Dysuria, No Urinary Frequency, No Hematuria, No Urgency Musculoskeletal : No joint pain, No Myalgias, No Joint Swelling Skin : No Skin Lesions, No rash Neuro : pos Weakness, No Numbness, pos Dizziness, No Headache Psych : pos Anxiety/Panic, No Depression Heme/Lymph: No Bruising, No Lymphadenopathy Endocrine : No Polyuria, No Polydipsia All other systems reviewed and are negative. [facility] Past Medical History Attestation statement: The following information was validated with the patient. Medical History COVID-19 vaccine series completed COVID-19 virus infection Depression GERD (gastroesophageal reflux disease) Herpes Surgical History [place] teeth extracted Family History Family History Mother Cancer of unknown origin Social History Social History Are you a primary personal care aid to a significant other at home: No Do you presently have visiting nurse or other home services: No Alcohol intake: unknown Patient Tobacco Use Status: Never used Tobacco Substance Use Type: Marijuana Advance Directives: No Advance Directives Information Provided: No Physical Exam ED Vital Signs: Vital Signs - 24 hr 03/25/22 08:35 03/25/22 10:56 Temperature 98.0 F 98.7 F Pulse Rate 105 H 78 Respiratory Rate 16 18 Blood Pressure 124/80 94/58 L Pulse Oximetry 100 99 BMI result Body Mass Index 22.8 Appearance: Alert. Oriented X3. Mild acute distress. Anxious, whispering, eyes closed, almost starts to cry Eyes: Pupils equal, round and reactive to light. ENT: Pharynx normal. Neck: Normal inspection. Neck supple. CVS: Normal heart rate and rhythm. Pulses normal. Respiratory: No respiratory distress. Breath sounds normal. Abdomen: Soft and mild lower abdominal ttp no rebound or guarding Skin: Skin warm and dry. Normal skin color. Normal skin turgor. Extremities: No lower extremity edema. No calf ttp Neuro: Oriented X 3. No motor deficit. No sensory deficit. Course Course Course Narrative: tolerating PO feels much better labs negative stable for DC MDM - Abdominal Pain MDM Narrative Medical decision making narrative: 21 yo female hx of abdominal pain in the past - due for HIDA scan tomorrow comes in today with c/o abdominal pain n/v denies precipitating events - at this time will need labs, IV zofran, fluids and ativan for anxiety. She is overall not toxic and appears more anxious. Has HIDA Scan tomorrow if WBC and LFTs normal can follow up as outpatient Lab Data Result diagrams: 03/25/22 08:58 03/25/22 08:58 Labs: Lab Results 03/25/22 03/25/22 03/25/22 Range/Units 08:58 08:58 08:58 WBC 10.3 (4.8-10.8) X10*3/uL RBC 4.66 (4.20-5.50) X10*6/uL Hgb 13.7 (12.0-16.0) g/dl Hct 39.8 (37.0-47.0) % MCV 85.4 (80.0-98.0) fL MCH 29.4 (27.0-33.0) pg MCHC 34.4 (31.0-35.0) g/dl RDW 12.5 (11.0-16.0) % Plt Count 303 (160-400) X10*3/uL MPV 10.6 (9.4-12.3) fL Immature Gran % (Auto) 0.4 (0.0-0.4) % Neut % (Auto) 69.2 (45-73) % Lymph % (Auto) 22.0 (20-40) % Mcintosh % (Auto) 7.1 (2-11) % Eos % (Auto) 1.0 (0-4) % Baso % (Auto) 0.3 (0-2) % Lymph # (Auto) 2.3 (1.2-4.9) X10*3/uL Mcintosh # (Auto) 0.7 (0.1-1.2) X10*3/uL Eos # (Auto) 0.1 (0.0-0.4) X10*3/uL Baso # (Auto) 0.0 (0.0-0.2) X10*3/uL Abs Immat Gran (auto) 0.04 H (0.00-0.03) X10*3/uL Absolute Neuts (auto) 7.1 (2.0-8.3) x10*3/uL Absolute Nucleated RBC 0.000 (0.0-0.012) X10*3/uL Nucleated RBC % (auto) 0.0 (0.0-0.2) /100WBC Sodium 136 (135-145) mmol/L Potassium 3.5 (3.3-5.1) mmol/L Chloride 107 (96-108) mmol/L Carbon Dioxide 21 L (22-29) mmol/L Anion Gap 12 (12-20) BUN 9 (9-16) mg/dL Creatinine 0.80 (0.5-1.4) mg/dL Estim Creat Clear Calc 76.5 Estimated GFR > 60 Random Glucose 112 (60-115) mg/dL Calcium 9.7 (8.4-10.2) mg/dL Magnesium 1.8 (1.6-2.6) mg/dL Total Bilirubin 0.3 (0.0-1.0) mg/dL Direct Bilirubin < 0.2 (0.0-0.5) mg/dL AST 17 (5-31) U/L ALT 13 (0-31) U/L Alkaline Phosphatase 76 (39-117) U/L C-Reactive Protein 0.03 (< or = 0.50) mg/dL Total Protein 7.3 (6.5-8.0) g/dL Albumin 4.3 (3.5-5.0) g/dL Lipase 14 (8-78) U/L Beta HCG, Quant < 2 mIU/mL Urine Color Urine Appearance Urine pH (5.0-8.0) Ur Specific Rolette (1.005-1.025) Urine Protein (NEG-TRACE) MG/DL Urine Glucose (UA) (NEG) MG/DL Urine Ketones (NEG) MG/DL Urine Blood (NEG) Urine Nitrite (NEG) Ur Leukocyte Esterase (NEG) Urine Opiates Screen (Not Detect) Urine Fentanyl Screen (Not Detect) Ur Barbiturates Screen (Not Detect) Ur Phencyclidine Scrn (Not Detect) Ur Amphetamines Screen (Not Detect) U Benzodiazepines Scrn (Not Detect) Urine Cocaine Screen (Not Detect) U Marijuana (THC) Screen (Not Detect) COVID-19 (JF) Negative (Negative) COVID-19 Clin Com See Note 03/25/22 03/25/22 Range/Units 10:59 11:00 WBC (4.8-10.8) X10*3/uL RBC (4.20-5.50) X10*6/uL Hgb (12.0-16.0) g/dl Hct (37.0-47.0) % MCV (80.0-98.0) fL MCH (27.0-33.0) pg MCHC (31.0-35.0) g/dl RDW (11.0-16.0) % Plt Count (160-400) X10*3/uL MPV (9.4-12.3) fL Immature Gran % (Auto) (0.0-0.4) % Neut % (Auto) (45-73) % Lymph % (Auto) (20-40) % Mcintosh % (Auto) (2-11) % Eos % (Auto) (0-4) % Baso % (Auto) (0-2) % Lymph # (Auto) (1.2-4.9) X10*3/uL Mcintosh # (Auto) (0.1-1.2) X10*3/uL Eos # (Auto) (0.0-0.4) X10*3/uL Baso # (Auto) (0.0-0.2) X10*3/uL Abs Immat Gran (auto) (0.00-0.03) X10*3/uL Absolute Neuts (auto) (2.0-8.3) x10*3/uL Absolute Nucleated RBC (0.0-0.012) X10*3/uL Nucleated RBC % (auto) (0.0-0.2) /100WBC Sodium (135-145) mmol/L Potassium (3.3-5.1) mmol/L Chloride (96-108) mmol/L Carbon Dioxide (22-29) mmol/L Anion Gap (12-20) BUN (9-16) mg/dL Creatinine (0.5-1.4) mg/dL Estim Creat Clear Calc Estimated GFR Random Glucose (60-115) mg/dL Calcium (8.4-10.2) mg/dL Magnesium (1.6-2.6) mg/dL Total Bilirubin (0.0-1.0) mg/dL Direct Bilirubin (0.0-0.5) mg/dL AST (5-31) U/L ALT (0-31) U/L Alkaline Phosphatase (39-117) U/L C-Reactive Protein (< or = 0.50) mg/dL Total Protein (6.5-8.0) g/dL Albumin (3.5-5.0) g/dL Lipase (8-78) U/L Beta HCG, Quant mIU/mL Urine Color STRAW Urine Appearance HAZY Urine pH 7.5 (5.0-8.0) Ur Specific Rolette 1.010 (1.005-1.025) Urine Protein NEG (NEG-TRACE) MG/DL Urine Glucose (UA) NEG (NEG) MG/DL Urine Ketones NEG (NEG) MG/DL Urine Blood NEG (NEG) Urine Nitrite NEG (NEG) Ur Leukocyte Esterase NEG (NEG) Urine Opiates Screen Not Detected (Not Detect) Urine Fentanyl Screen Not Detected (Not Detect) Ur Barbiturates Screen Not Detected (Not Detect) Ur Phencyclidine Scrn Not Detected (Not Detect) Ur Amphetamines Screen Not Detected (Not Detect) U Benzodiazepines Scrn Not Detected (Not Detect) Urine Cocaine Screen Not Detected (Not Detect) U Marijuana (THC) Screen Not Detected (Not Detect) COVID-19 (JF) (Negative) COVID-19 Clin Com Discharge Plan Discharge Clinical Impression: Vomiting Qualifiers: Vomiting type: unspecified Nausea presence: with nausea Qualified Code(s): R11.2 - Nausea with vomiting, unspecified Abdominal pain Qualifiers: Abdominal location: lower abdomen, unspecified Qualified Code(s): R10.30 - Lower abdominal pain, unspecified Patient Disposition: Home, Self-Care Instructions: Acute Nausea and Vomiting (ED), Abdominal Pain (ED) Additional Instructions: return to ED for any worsening symptoms or concerns labs normal, urine negative Prescriptions: New ondansetron 4 mg tablet,disintegrating 4 mg PO Q8H PRN (Reason: nausea and vomiting) Qty: 20 0RF No Action omeprazole magnesium [Prilosec OTC] 20 mg Tablet,Delayed Release (Dr/Ec) 20 mg PO DAILY 0RF valacyclovir 1 gram tablet 1,000 mg PO DAILY 0RF hydroxyzine HCl 10 mg tablet 10 - 20 mg PO BID PRN (Reason: anxiety) 0RF Stand Alone Forms: Work/School Release
[2022-03-25 09:03] LABS: MANUAL DIFF FLAG NO
[2022-03-25] MEDS: Lactated Ringers 1,000 ML 999 ML IV (09:03)
[2022-03-25] MEDS: LORazepam 2 MG/ML VIAL 1 MG IVPUSH (09:03)
[2022-03-25] MEDS: ondansetron HCL 4 MG/2 ML VIAL IVPUSH (09:03)
[2022-03-25 09:07] LABS: Basophils Percent Auto 0.3 % (0-2); Eosinophils Absolute Auto 0.1 X10*3/uL (0.0-0.4); Hematocrit 39.8 % (37.0-47.0); Hemoglobin 13.7 g/dl (12.0-16.0); Imm Gran Abs Auto 0.04 X10*3/uL (0.00-0.03); Imm Gran Pct Auto 0.4 % (0.0-0.4); Lymphocytes Absolute Auto 2.3 X10*3/uL (1.2-4.9); Mean Corpuscular HGB Conc 34.4 g/dl (31.0-35.0); Mean Corpuscular Hemoglobin 29.4 pg (27.0-33.0); Mean Corpuscular Volume 85.4 fL (80.0-98.0); Mean Platelet Volume 10.6 fL (9.4-12.3); Monocytes Absolute Auto 0.7 X10*3/uL (0.1-1.2); Monocytes Percent Auto 7.1 % (2-11); Neutrophils Absolute Auto 7.1 x10*3/uL (2.0-8.3); Neutrophils Percent Auto 69.2 % (45-73); Platelet Count 303 X10*3/uL (160-400); Red Blood Count 4.66 X10*6/uL (4.20-5.50); Red Cell Distribution Width 12.5 % (11.0-16.0); White Blood Count 10.3 X10*3/uL (4.8-10.8)
[2022-03-25 09:27] LABS: Alanine Aminotransferase 13 U/L (0-31); Albumin Level 4.3 g/dL (3.5-5.0); Alkaline Phosphatase 76 U/L (39-117); Anion Gap 12 (12-20); Aspartate Amino Transferase 17 U/L (5-31); Bilirubin Direct < 0.2 mg/dL (0.0-0.5); Bilirubin Total 0.3 mg/dL (0.0-1.0); Blood Urea Nitrogen 9 mg/dL (9-16); C Reactive Protein 0.03 mg/dL (< or = 0.50); COVID-19 Test Negative (Negative); Calcium 9.7 mg/dL (8.4-10.2); Carbon Dioxide 21 mmol/L (22-29); Chloride 107 mmol/L (96-108); Creatinine Clr Calc Pharmacy 76.5; Estimated Glomerular Filt Rate > 60; Glucose Random 112 mg/dL (60-115); IDNOW Serial# 9DD0AD1C; Lipase 14 U/L (8-78); Magnesium 1.8 mg/dL (1.6-2.6); Potassium 3.5 mmol/L (3.3-5.1); Sodium 136 mmol/L (135-145); Total Protein 7.3 g/dL (6.5-8.0)
[2022-03-25 09:32] LABS: HCG Quantitative < 2 mIU/mL
[2022-03-25 10:56] VITALS: BP 94/58; PULSE 78; RESP 18; TEMP 37.1; O2SAT 99
[2022-03-25 11:08] LABS: Appearance Urine HAZY; Color Urine STRAW; Glucose Urine UA NEG (NEG); Leukocyte Esterase Urine NEG (NEG); Nitrite Urine NEG (NEG); PH 7.5 (5.0-8.0); Urine Blood NEG (NEG); Urine Ketones NEG (NEG); Urine Protein NEG (NEG-TRACE)
[2022-03-25 11:21] LABS: Amphetamine Screen Urine Not Detected (Not Detect); Barbiturates, Urine Not Detected (Not Detect); Benzodiazepines Screen Urine Not Detected (Not Detect); Cannabinoid Screen Urine Not Detected (Not Detect); Cocaine Screen Urine Not Detected (Not Detect); Fentanyl, urine Not Detected (Not Detect); Opiate Screen Urine Not Detected (Not Detect); Phencyclidine Screen Urine Not Detected (Not Detect)
== END 2022-03-25 12:26 | disposition home or self-care (01) ==
PROVIDERS: Emergency Provider Emergency Medicine; PCP Nurse Practitioner Family
DX: R10.13 Epigastric pain (principal); R42 Dizziness and giddiness; R11.2 Nausea with vomiting, unspecified; R10.30 Lower abdominal pain, unspecified; Z20.822 Contact with and (suspected) exposure to COVID-19; Z79.899 Other long term (current) drug therapy
CPT/HCPCS: 80048; 80076; 80307; 81003; 83690; 83735; 84702; 85025; 86140; 87635; 96361; 96374; 96375; 99283; 99284; J2060; J2405

== ENCOUNTER → 2022-04-14 10:45 | Outpatient (REF) | payer MEDICAID, SELFPAY ==
--- NOTE | ~2022-04-14 | NM_ITS ---
EXAMINATION: NM BILIARY TRACT WITH ORAL FATTY MEAL CLINICAL INFORMATION: Chronic cholecystitis. COMPARISON: No previous biliary scan is available for comparison. The diagnostic CT scan of the abdomen and pelvis, dated 06/11/2021, is available for comparison. TECHNIQUE: Serial gamma scintillation camera images were obtained over the abdomen for a total observation period of 137 minutes following the intravenous administration of 5.0 mCi Tc-99m Mebrofenin. FINDINGS: There is good concentration of activity in the liver by 5 minutes post injection. Biliary activity is visualized by 10 minutes. The gallbladder is well visualized by 20 minutes. Small bowel is well visualized by 77 minutes. At 60 minutes post Mebrofenin injection, 8 ounces of Ensure-plus Brand was administered orally and an additional 60 minutes of images were obtained. There is good emptying of the gallbladder following ingestion of the fatty meal. At the end of the study there is good clearance of activity from the liver and visualization of diffuse small bowel activity. The calculated gallbladder ejection fraction is 44% (normal gallbladder ejection fraction using Ensure supplement orally is greater than 33%). NM/NM hepatobiliary w pharm IMPRESSION: Visualization of the gallbladder is evidence of a patent cystic duct and strong evidence against the diagnosis of acute cholecystitis. The common bile duct is patent. Gallbladder emptying and ejection fraction are normal. Liver function appears normal.
[2022-04-14 12:06] LABS: UPreg QC Valid YES; Urine Pregnancy NEGATIVE (NEGATIVE)
== END ==
LOC: HO.NUCMED 10:45
PROVIDERS: PCP Pediatrics; Visit Provider Surgery
DX: K81.1 Chronic cholecystitis (principal); R10.11 Right upper quadrant pain
CPT/HCPCS: 78227; 81025; A9537

== ENCOUNTER → 2022-04-20 15:20 | Outpatient (BNVA) | payer MEDICAID, SELFPAY | PROVIDERS: PCP Pediatrics; Referring Provider Pediatrics; Visit Provider Surgery | DX: R10.11 Right upper quadrant pain (principal) | CPT/HCPCS: 99212 ==

== ENCOUNTER 2022-08-31 06:57 | Emergency (ER) | payer MEDICAID, SELFPAY ==
[2022-08-31 07:01] VITALS: BP 116/74; PULSE 105; O2SAT 100
[2022-08-31 07:18] VITALS: BP 113/76; PULSE 97; RESP 18; TEMP 36.7; O2SAT 99; BMI 22.2
[2022-08-31 07:42] LABS: COVID-19 Test Negative (Negative); Strep A Nucleic Acid Negative (Negative)
--- NOTE | 2022-08-31 08:21 | ED.GENADULT ---
HPI - General Adult General Chief complaint: Upper Respiratory Symptoms Stated complaint: Sore Throat Time Seen by Provider: 08/31/22 08:20 Source: patient Mode of arrival: ambulatory Limitations: no limitations History of Present Illness HPI narrative: Patient is a 22 year old assigned female at with no reported medical history presenting to the emergency department today with a sore throat. Patient states that starting yesterday she started to have a sore throat and feel like she is losing her voice. Patient denies any dizziness, lightheadedness, abdominal pain, nausea, vomiting, fever, chills, blurry vision, double vision, loss of vision, chest pain, difficulty breathing, shortness of breath, back pain, night sweats, pain with urination, increased urinary frequency, increased urinary urgency, blood in her urine or stool, syncope or a near syncopal episode, recent trauma or falls, bowel incontinence, bladder incontinence, bowel retention, bladder retention, or any other complaints at this time. Onset (ago): day(s) (1) Severity: mild Severity scale (1-10): 2 Relieving factors: none Exacerbating factors: none Associated symptoms: denies other symptoms Treatments prior to arrival: none Related Data Home Medications Medication Instructions Recorded Confirmed valacyclovir 1 gram tablet 1,000 mg PO DAILY 02/04/21 02/25/22 omeprazole magnesium 20 mg 20 mg PO DAILY 02/25/22 03/02/22 tablet,delayed release (Prilosec OTC) hydroxyzine HCl 10 mg tablet 10 - 20 mg PO BID PRN anxiety 03/02/22 04/22/22 Previous Rx's Medication Instructions Recorded ondansetron 4 mg disintegrating 4 mg PO Q8H PRN nausea and 03/25/22 tablet vomiting #20 tabs lidocaine HCl 2 % mucosal solution 1.2 ml mucous membrane BID PRN 08/31/22 (Lidocaine Viscous) pain #100 mL penicillin V potassium 500 mg 500 mg PO BID 10 days #20 tabs 08/31/22 tablet prednisone 20 mg tablet 20 mg PO DAILY 12 days #26 tabs 08/31/22 Allergies Allergy/AdvReac Type Severity Reaction Status Date / Time tree and shrub pollen Allergy Mild Unknown Verified 04/20/22 15:37 apple [APPLES] Allergy Unknown THROAT Verified 04/20/22 15:37 ITCHY peach [PEACHES] Allergy Unknown ITCHY Verified 04/20/22 15:37 THROAT Review of Systems Constitutional: Constitutional: Reports no additional constitutional complaints, Denies chills, Denies fever(s) and Denies night sweats Eyes: Eyes: Reports no additional eye complaints, Denies blurry vision, Denies change in vision, Denies diplopia, Denies eye discharge, Denies loss of vision and Denies eye pain ENT: Denies dizziness and Reports sore throat Cardiovascular: Cardiovascular: Reports no additional cardiovascular complaints, Denies chest pain, Denies lightheadedness, Denies Loss of Consciousness and Denies dyspnea Respiratory: Respiratory: Reports no additional respiratory complaints and Denies dyspnea Gastrointestinal: Gastrointestinal: Reports no additional gastrointestinal complaints, Denies abdominal pain, Denies melena, Denies hematochezia, Denies change in bowel habits and Denies change in stool character Genitourinary: Genitourinary: Denies hematuria, Denies urinary frequency, Denies dysuria, Denies urinary incontinence, Denies urinary hesitancy and Denies urinary urgency Musculoskeletal: Musculoskeletal: Reports no additional musculoskeletal complaints, Denies numbness and Denies tingling Neurologic: Denies dizziness, Denies loss of vision, Denies numbness and Denies tingling Psychiatric: Psychiatric: Reports no additional psychiatric complaints Endocrine: Endocrine: Reports no additional endocrine complaints Hematologic/Lymphatic: Hematologic/Lymphatic: Reports no additional hematologic/lymphatic complaints Allergic/Immunologic: Allergic/Immunologic: Reports no additional allergic/immunologic complaints [facility] Past Medical History Attestation statement: The following information was validated with the patient. Source: old records reviewed Medical History COVID-19 vaccine series completed COVID-19 virus infection Depression GERD (gastroesophageal reflux disease) Herpes Surgical History [place] teeth extracted Family History Family History Mother Cancer of unknown origin Social History Social History Are you a primary residential care facility manager to a significant other at home: No Do you presently have visiting nurse or other home services: No Alcohol intake: unknown Patient Tobacco Use Status: Never used Tobacco Substance Use Type: Marijuana Advance Directives: No Physical Exam ED Vital Signs: Vital Signs - 24 hr 08/31/22 07:18 Temperature 98.1 F Pulse Rate 97 Respiratory Rate 18 Blood Pressure 113/76 Pulse Oximetry 99 Oxygen Delivery Method Room Air BMI result Body Mass Index 22.2 Const General: cooperative, no acute distress, alert and awake Nutritional Appearance: well nourished Orientation/consciousness: patient oriented x3 Limitations: no limitations HENMT Head: Yes normal to inspection and Yes atraumatic Ears: hearing grossly normal bilaterally and external ears normal General nose exam: Normal external nose present, no nasal discharge noted and no epistaxis Face and sinus: Yes normal facial exam, No abrasion and No laceration Mouth: Normal oral and palatal mucosa present, no drooling and no muffled voice Throat: Yes other (erythema to the posterior oropharynx) Eyes General: appearance normal, both eyes and all related structures Periorbital: periorbital findings normal Eyelids: Yes eyelids normal Conjunctivae: conjunctivae normal Pupils: Equal, round and reactive pupils present EOM: EOMs intact bilaterally Neck Neck: Yes normal visual inspection, Yes full ROM and Yes no lymphadenopathy Chest Chest palpation & inspection: normal inspection of the chest Resp Effort & Inspection: normal respiratory effort and able to speak in complete sentences Auscultation: clear to auscultation bilaterally Cardio Rate: regular rate Rhythm: regular rhythm GI Inspection: Yes normal to inspection Neuro General: patient oriented x3 and moves all extremities Cranial nerves: Yes Equal, round and reactive pupils present Cognition (Neuro): normal cognition Motor exam (neuro): 5/5 motor strength present throughout Sensory Exam: Normal double simultaneous stimulation for sensation Coordination: [id number] test normal Extrem General: Yes normal to inspection, Yes full ROM and Yes capillary refill normal Psych Appearance: grossly normal Mental Status: mental status grossly normal Affect: normal affect Attitude: cooperative Thought process: Normal thought process present Thought content: Normal thought content present Insight: Good insight present (Psych) Medical Decision Making MDM Narrative Medical decision making narrative: Patient is a 22 year old assigned female at with no reported medical history presenting to the emergency department today with a sore throat. Patient's physical exam showed posterior oropharynx erythema but was otherwise unremarkable. Patient was in no respiratory distress, no uvular deviation, and had no hoarse voice. Patient's rapid COVID-19 and strep tests were both negative. Patient's current clinical presentation is most consistent with pharyngitis. I explained my physical exam findings as well as all test results to the patient. I answered all questions asked by the patient. I stressed the importance of the patient taking her medication as prescribed. I stressed the importance of the patient following up with her primary care provider. I stressed the importance of the patient returning to the emergency department immediately if her symptoms were to worsen or if she were to develop any dizziness, shortness of breath, difficulty breathing, chest pain, blurry vision, loss of vision, nausea, vomiting, abdominal pain, fever, chills, back pain, or any other complaints. Patient verbalized agreement and understanding with this treatment plan and discharge. Medical Records Medical records reviewed: Yes I reviewed the patient's medical records. Lab Data Lab results reviewed: Yes I reviewed the patient's lab results. Labs: Lab Results 08/31/22 08/31/22 Range/Units 07:23 07:23 COVID-19 (JF) Negative (Negative) COVID-19 Clin Com See Note S. pyogenes GrpA ELIDIA Negative (Negative) Discharge Plan Discharge Clinical Impression: Pharyngitis Patient Disposition: Home, Self-Care Instructions: Pharyngitis (ED) Additional Instructions: Follow up with your primary care provider. Return to the emergency department immediately if your symptoms worsen or if you develop any dizziness, shortness of breath, difficulty breathing, chest pain, blurry vision, loss of vision, nausea, vomiting, abdominal pain, fever, chills, back pain, or any other complaints. Prescriptions: New lidocaine HCl [Lidocaine Viscous] 2 % solution 1.2 ml mucous membrane BID PRN (Reason: pain) Qty: 100 0RF prednisone 20 mg tablet 20 mg PO DAILY 12 Days Qty: 26 0RF Rx Instructions: Take 3 tablets for 5 days THEN; Take 2 tablets for 4 days THEN; Take 1 tablet for 3 days penicillin V potassium 500 mg tablet 500 mg PO BID 10 Days Qty: 20 0RF No Action ondansetron 4 mg tablet,disintegrating 4 mg PO Q8H PRN (Reason: nausea and vomiting) Qty: 20 0RF omeprazole magnesium [Prilosec OTC] 20 mg Tablet,Delayed Release (Dr/Ec) 20 mg PO DAILY valacyclovir 1 gram tablet 1,000 mg PO DAILY hydroxyzine HCl 10 mg tablet 10 - 20 mg PO BID PRN (Reason: anxiety) Referrals: [facility] [facility] [Provider Group] (Call to establish and follow up with a primary care provider. If you already have a primary care provider, please follow up with them. ) [facility] [place] Primary Care, Frannie [Provider Group] (Call to establish and follow up with a primary care provider. If you already have a primary care provider, please follow up with them. ) [facility] [place] Primary Care,Sudheer [Provider Group] (Call to establish and follow up with a primary care provider. If you already have a primary care provider, please follow up with them. ) Stand Alone Forms: Work/School Release Print Language: Upper Sorbian
== END 2022-08-31 08:49 | disposition home or self-care (01) ==
PROVIDERS: Emergency Provider Emergency Medicine Emergency Medical Services
DX: J02.8 Acute pharyngitis due to other specified organisms (principal); Z20.822 Contact with and (suspected) exposure to COVID-19; Z79.899 Other long term (current) drug therapy
CPT/HCPCS: 87635; 87651; 99282; 99283

== ENCOUNTER 2023-01-17 11:26 | Emergency (ER) | payer MEDICAID, SELFPAY ==
--- NOTE | ~2023-01-17 | XR_ITS ---
EXAMINATION: XR CHEST CLINICAL INFORMATION: Chest pain for about one year. COMPARISON: None TECHNIQUE: 2 views of the chest were obtained. FINDINGS: No significant abnormality is noted involving the heart, lungs, mediastinum, bony thorax or soft tissues. XR/XR chest 2V IMPRESSION: Unremarkable examination.
[2023-01-17 11:38] VITALS: BP 120/67; PULSE 83; RESP 18; TEMP 36.6; O2SAT 99; BMI 20.2
--- NOTE | 2023-01-17 11:40 | ED.CHESTPAIN ---
HPI - Chest Pain General Chief Complaint: Chest Pain <NATALIYA Stark - Last Filed: 01/17/23 11:48> Stated Complaint: chest pain, nausea, dizzy <NATALIYA Stark - Last Filed: 01/17/23 11:48> Time Seen by Provider: 01/17/23 15:03 <NATALIYA Stark - Last Filed: 01/17/23 11:48> Source: patient <Sigifredo Rodriguez MD - Last Filed: 01/17/23 16:06> Mode of arrival: ambulatory <Sigifredo Rodriguez MD - Last Filed: 01/17/23 16:06> Limitations: no limitations <Sigifredo Rodriguez MD - Last Filed: 01/17/23 16:06> History of Present Illness HPI narrative: 22-year-old female with no major medical problems the exception of anxiety presents with chest pain. Symptoms started about 1 week ago. They are intermittent. There is no clear relieving or exacerbating features. It is associated with anxiety however. Describes the pain as pressure and burning in nature. Sometimes she has an acid taste in back her mouth. She denies any shortness of breath, lower extremity edema, history of PE or DVT. There has been no prior treatment. She had this proximal 1 year ago I workup was benign. She denies any diarrhea, constipation, abdominal discomfort. She denies any fevers or chills. <Sigifredo Rodriguez MD - Last Filed: 01/17/23 16:06> Related Data Home Medications: Home Medications Medication Instructions Recorded Confirmed valacyclovir 1 gram tablet 1,000 mg PO DAILY 02/04/21 02/25/22 omeprazole magnesium 20 mg 20 mg PO DAILY 02/25/22 03/02/22 tablet,delayed release (Prilosec OTC) hydroxyzine HCl 10 mg tablet 10 - 20 mg PO BID PRN anxiety 03/02/22 04/22/22 Previous Rx's Medication Instructions Recorded ondansetron 4 mg disintegrating 4 mg PO Q8H PRN nausea and 03/25/22 tablet vomiting #20 tabs lidocaine HCl 2 % mucosal solution 1.2 ml mucous membrane BID PRN 08/31/22 (Lidocaine Viscous) pain #100 mL penicillin V potassium 500 mg 500 mg PO BID 10 days #20 tabs 08/31/22 tablet prednisone 20 mg tablet 20 mg PO DAILY 12 days #26 tabs 08/31/22 ondansetron 4 mg disintegrating 4 mg PO Q8H PRN nausea and 01/17/23 tablet vomiting #10 tabs pantoprazole 40 mg tablet,delayed 40 mg PO DAILY #30 tabs 01/17/23 release <NATALIYA Stark - Last Filed: 01/17/23 11:48> Allergies/Adverse Reactions: Allergies Allergy/AdvReac Type Severity Reaction Status Date / Time tree and shrub pollen Allergy Mild Unknown Verified 04/20/22 15:37 apple [APPLES] Allergy Unknown THROAT Verified 04/20/22 15:37 ITCHY peach [PEACHES] Allergy Unknown ITCHY Verified 04/20/22 15:37 THROAT <NATALIYA Stark - Last Filed: 01/17/23 11:48> PMFSH Past Medical History Medical History: Medical History COVID-19 vaccine series completed COVID-19 virus infection Depression GERD (gastroesophageal reflux disease) Herpes <NATALIYA Stark - Last Filed: 01/17/23 11:48> Surgical History: Surgical History Shade teeth extracted <NATALIYA Stark - Last Filed: 01/17/23 11:48> Family History Family History: Family History Mother Cancer of unknown origin <NATALIYA Stark - Last Filed: 01/17/23 11:48> Social History Social History: Social History Are you a primary pet care attendant to a significant other at home: No Do you presently have visiting nurse or other home services: No Alcohol intake: never Patient Tobacco Use Status: Never used Tobacco Smoked in Last 30 Days: No Use of substances other than those prescribed or required for medical reasons: No Substance Use Type: Marijuana Advance Directives: No Advance Directives Information Provided: No Patient : No <NATALIYA Stark - Last Filed: 01/17/23 11:48> Physical Exam Vital Signs: Vital Signs: Last Vital Signs Temp 97.9 F 01/17/23 11:38 Pulse 75 03/13/23 15:53 Resp 14 01/17/23 15:53 BP 109/77 01/17/23 15:53 Pulse Ox 100 01/17/23 15:53 O2 Del Method 01/17/23 15:53 BMI result Body Mass Index 20.2 <NATALIYA Stark - Last Filed: 01/17/23 11:48> Vital Signs: Last Vital Signs Temp 97.9 F 01/17/23 11:38 Pulse 75 01/17/23 15:53 Resp 14 01/17/23 15:53 BP 109/77 01/17/23 15:53 Pulse Ox 100 01/17/23 15:53 O2 Del Method 01/17/23 15:53 BMI result Body Mass Index 20.2 <Sigifredo Rodriguez MD - Last Filed: 01/17/23 16:06> GEN: Well developed, no acute distress, alert, oriented HEENT: Normocephalic, atraumatic, normal external ears, nose appears normal, no oropharyngeal edema or exudates Eyes: Normal to appearance Neck: Supple, no lymphadenopathy Respiratory: Talks in complete sentences, no respiratory distress, clear to auscultation bilaterally Cardiovascular: Regular rate and rhythm, no murmurs rubs or gallops Abdomen: Soft, nontender, nondistended, no guarding, no rebound Back: No CVA tenderness Extremities: No clubbing cyanosis or edema Neurologic: No focal neurologic deficits, cranial nerves 2-12 intact, strength is 5/5 bilaterally, gait normal Skin: No rash <Sigifredo Rodriguez MD - Last Filed: 01/17/23 16:06> Course Course Course Narrative: RME-11:48am 22yoF presenting to the ED with c/o intermittent midsternal chest pain that has been on and off for the past year. Reports when it starts she starts feeling short of breath she starts to panic and its associated nausea. LMP-last week. Not on OCP's. Denies any drug usage. Reports she always needs to be in a cold room in order to be okay . Reports she has been worked up in the past and they can never tell her what is wrong with her. She reports she is not under any stress. Plan: Labs, EKG, chest x-ray. Patient will be sent back to the waiting room to be evaluated in the ED. <NATALIYA Stark - Last Filed: 01/17/23 11:48> Reevaluation(s) Reevaluation #1: Workup is complete. Chest x-ray is benign. EKG shows no ischemic changes. Lab work was unremarkable. Doubt PE or DVT. She has no risk factors and PERC score is 0. Will discharge patient on acid reducing medications, she can continue her anxiety medications. I will also prescribe Zofran. She can follow up with primary care provider in 1 week. <Sigifredo Rodriguez MD - Last Filed: 01/17/23 16:06> Time: 16:03 <Sigifredo Rodriguez MD - Last Filed: 01/17/23 16:06> Medical Decision Making Medical Decision Making MDM Narrative: 22-year-old female describes intermittent chest pain. Not associated with exertion. She denies any shortness of breath. She has no risk factors for PE. Her PERC score is 0. Her chest pain is nonexertional unlikely to be cardiac in nature. Most likely is gastrointestinal. Will have a full workup including CBC, chest x-ray, EKG and re-evaluate patient <Sigifredo Rodriguez MD - Last Filed: 01/17/23 16:06> Differential Diagnosis Differential Diagnoses: The differential diagnosis associated with the presentation includes (Atypical chest pain, GERD, esophageal spasm gastritis, dyspepsia, atypical chest pain, musculoskeletal as hest pain) <Sigifredo Rodriguez MD - Last Filed: 01/17/23 16:06> Atypical chest pain <Sigifredo Rodriguez MD - Last Filed: 01/17/23 16:06> Lab Data MDM Lab Attestation statement: I reviewed the patient's lab results. <Sigifredo Rodriguez MD - Last Filed: 01/17/23 16:06> Result Diagrams: 01/17/23 15:10 01/17/23 15:10 <NATALIYA Stark - Last Filed: 01/17/23 11:48> Labs: Lab Results 01/17/23 01/17/23 01/17/23 Range/Units 15:10 15:10 15:10 WBC 7.1 (4.8-10.8) X10*3/uL RBC 4.86 (4.20-5.50) X10*6/uL Hgb 14.3 (12.0-16.0) g/dl Hct 42.9 (37.0-47.0) % MCV 88.3 (80.0-98.0) fL MCH 29.4 (27.0-33.0) pg MCHC 33.3 (31.0-35.0) g/dl RDW 12.0 (11.0-16.0) % Plt Count 313 (160-400) X10*3/uL MPV 10.1 (9.4-12.3) fL Immature Gran % (Auto) 0.1 (0.0-0.4) % Neut % (Auto) 63.9 (45-73) % Lymph % (Auto) 28.3 (20-40) % Rowan % (Auto) 7.0 (2-11) % Eos % (Auto) 0.3 (0-4) % Baso % (Auto) 0.4 (0-2) % Lymph # (Auto) 2.0 (1.2-4.9) X10*3/uL Rowan # (Auto) 0.5 (0.1-1.2) X10*3/uL Eos # (Auto) 0.0 (0.0-0.4) X10*3/uL Baso # (Auto) 0.0 (0.0-0.2) X10*3/uL Abs Immat Gran (auto) 0.01 (0.00-0.03) X10*3/uL Absolute Neuts (auto) 4.6 (2.0-8.3) x10*3/uL Absolute Nucleated RBC 0.000 (0.0-0.012) X10*3/uL Nucleated RBC % (auto) 0.0 (0.0-0.2) /100WBC PT 12.2 (10.0-13.1) SEC INR 1.1 (0.9-1.1) Sodium 138 (135-145) mmol/L Potassium 4.1 (3.3-5.1) mmol/L Chloride 105 (96-108) mmol/L Carbon Dioxide 24 (22-29) mmol/L Anion Gap 13 (12-20) BUN 11 (9-16) mg/dL Creatinine 0.88 (0.5-1.4) mg/dL Estim Creat Clear Calc 68.9 Estimated GFR > 60 Random Glucose 75 (60-115) mg/dL Calcium 9.2 (8.4-10.2) mg/dL Magnesium 1.8 (1.6-2.6) mg/dL Total Bilirubin 0.7 (0.0-1.0) mg/dL AST 18 (5-31) U/L ALT 11 (0-31) U/L Alkaline Phosphatase 66 (39-117) U/L Total Protein 7.4 (6.5-8.0) g/dL Albumin 4.3 (3.5-5.0) g/dL TSH (0.32-4.0) uIU/mL Beta HCG, Quant mIU/mL 01/17/23 01/17/23 Range/Units 15:10 15:10 WBC (4.8-10.8) X10*3/uL RBC (4.20-5.50) X10*6/uL Hgb (12.0-16.0) g/dl Hct (37.0-47.0) % MCV (80.0-98.0) fL MCH (27.0-33.0) pg MCHC (31.0-35.0) g/dl RDW (11.0-16.0) % Plt Count (160-400) X10*3/uL MPV (9.4-12.3) fL Immature Gran % (Auto) (0.0-0.4) % Neut % (Auto) (45-73) % Lymph % (Auto) (20-40) % Rowan % (Auto) (2-11) % Eos % (Auto) (0-4) % Baso % (Auto) (0-2) % Lymph # (Auto) (1.2-4.9) X10*3/uL Rowan # (Auto) (0.1-1.2) X10*3/uL Eos # (Auto) (0.0-0.4) X10*3/uL Baso # (Auto) (0.0-0.2) X10*3/uL Abs Immat Gran (auto) (0.00-0.03) X10*3/uL Absolute Neuts (auto) (2.0-8.3) x10*3/uL Absolute Nucleated RBC (0.0-0.012) X10*3/uL Nucleated RBC % (auto) (0.0-0.2) /100WBC PT (10.0-13.1) SEC INR (0.9-1.1) Sodium (135-145) mmol/L Potassium (3.3-5.1) mmol/L Chloride (96-108) mmol/L Carbon Dioxide (22-29) mmol/L Anion Gap (12-20) BUN (9-16) mg/dL Creatinine (0.5-1.4) mg/dL Estim Creat Clear Calc Estimated GFR Random Glucose (60-115) mg/dL Calcium (8.4-10.2) mg/dL Magnesium (1.6-2.6) mg/dL Total Bilirubin (0.0-1.0) mg/dL AST (5-31) U/L ALT (0-31) U/L Alkaline Phosphatase (39-117) U/L Total Protein (6.5-8.0) g/dL Albumin (3.5-5.0) g/dL TSH 0.36 (0.32-4.0) uIU/mL Beta HCG, Quant < 2 mIU/mL <NATALIYA Stark - Last Filed: 01/17/23 11:48> Lab Results 01/17/23 01/17/23 01/17/23 Range/Units 15:10 15:10 15:10 WBC 7.1 (4.8-10.8) X10*3/uL RBC 4.86 (4.20-5.50) X10*6/uL Hgb 14.3 (12.0-16.0) g/dl Hct 42.9 (37.0-47.0) % MCV 88.3 (80.0-98.0) fL MCH 29.4 (27.0-33.0) pg MCHC 33.3 (31.0-35.0) g/dl RDW 12.0 (11.0-16.0) % Plt Count 313 (160-400) X10*3/uL MPV 10.1 (9.4-12.3) fL Immature Gran % (Auto) 0.1 (0.0-0.4) % Neut % (Auto) 63.9 (45-73) % Lymph % (Auto) 28.3 (20-40) % Rowan % (Auto) 7.0 (2-11) % Eos % (Auto) 0.3 (0-4) % Baso % (Auto) 0.4 (0-2) % Lymph # (Auto) 2.0 (1.2-4.9) X10*3/uL Rowan # (Auto) 0.5 (0.1-1.2) X10*3/uL Eos # (Auto) 0.0 (0.0-0.4) X10*3/uL Baso # (Auto) 0.0 (0.0-0.2) X10*3/uL Abs Immat Gran (auto) 0.01 (0.00-0.03) X10*3/uL Absolute Neuts (auto) 4.6 (2.0-8.3) x10*3/uL Absolute Nucleated RBC 0.000 (0.0-0.012) X10*3/uL Nucleated RBC % (auto) 0.0 (0.0-0.2) /100WBC PT 12.2 (10.0-13.1) SEC INR 1.1 (0.9-1.1) Sodium 138 (135-145) mmol/L Potassium 4.1 (3.3-5.1) mmol/L Chloride 105 (96-108) mmol/L Carbon Dioxide 24 (22-29) mmol/L Anion Gap 13 (12-20) BUN 11 (9-16) mg/dL Creatinine 0.88 (0.5-1.4) mg/dL Estim Creat Clear Calc 68.9 Estimated GFR > 60 Random Glucose 75 (60-115) mg/dL Calcium 9.2 (8.4-10.2) mg/dL Magnesium 1.8 (1.6-2.6) mg/dL Total Bilirubin 0.7 (0.0-1.0) mg/dL AST 18 (5-31) U/L ALT 11 (0-31) U/L Alkaline Phosphatase 66 (39-117) U/L Total Protein 7.4 (6.5-8.0) g/dL Albumin 4.3 (3.5-5.0) g/dL TSH (0.32-4.0) uIU/mL Beta HCG, Quant mIU/mL 01/17/23 01/17/23 Range/Units 15:10 15:10 WBC (4.8-10.8) X10*3/uL RBC (4.20-5.50) X10*6/uL Hgb (12.0-16.0) g/dl Hct (37.0-47.0) % MCV (80.0-98.0) fL MCH (27.0-33.0) pg MCHC (31.0-35.0) g/dl RDW (11.0-16.0) % Plt Count (160-400) X10*3/uL MPV (9.4-12.3) fL Immature Gran % (Auto) (0.0-0.4) % Neut % (Auto) (45-73) % Lymph % (Auto) (20-40) % Rowan % (Auto) (2-11) % Eos % (Auto) (0-4) % Baso % (Auto) (0-2) % Lymph # (Auto) (1.2-4.9) X10*3/uL Rowan # (Auto) (0.1-1.2) X10*3/uL Eos # (Auto) (0.0-0.4) X10*3/uL Baso # (Auto) (0.0-0.2) X10*3/uL Abs Immat Gran (auto) (0.00-0.03) X10*3/uL Absolute Neuts (auto) (2.0-8.3) x10*3/uL Absolute Nucleated RBC (0.0-0.012) X10*3/uL Nucleated RBC % (auto) (0.0-0.2) /100WBC PT (10.0-13.1) SEC INR (0.9-1.1) Sodium (135-145) mmol/L Potassium (3.3-5.1) mmol/L Chloride (96-108) mmol/L Carbon Dioxide (22-29) mmol/L Anion Gap (12-20) BUN (9-16) mg/dL Creatinine (0.5-1.4) mg/dL Estim Creat Clear Calc Estimated GFR Random Glucose (60-115) mg/dL Calcium (8.4-10.2) mg/dL Magnesium (1.6-2.6) mg/dL Total Bilirubin (0.0-1.0) mg/dL AST (5-31) U/L ALT (0-31) U/L Alkaline Phosphatase (39-117) U/L Total Protein (6.5-8.0) g/dL Albumin (3.5-5.0) g/dL TSH 0.36 (0.32-4.0) uIU/mL Beta HCG, Quant < 2 mIU/mL <Sigifredo Rodriguez MD - Last Filed: 01/17/23 16:06> Independent Interpretation I performed an independent interpretation of an: EKG (Normal sinus rhythm heart rate 89, no acute ST elevations depressions, normal intervals, nonspecific T-wave changes) <Sigifredo Rodriguez MD - Last Filed: 01/17/23 16:06> Radiology Impression Discussion of test interpretation with radiology: I have reviewed the radiologist's reading. (IMPRESSION: Unremarkable examination. Dictated By:Sweetie CampbellSigned By:<Electronically signed by Sweetie Campbell in OV>01/17/23 1322) <Sigifredo Rodriguez MD - Last Filed: 01/17/23 16:06> Tests considered The following testing was considered but not selected: CT chest <Sigifredo Rodriguez MD - Last Filed: 01/17/23 16:06> Prescription Management I considered prescription management with: Pain Medication <Sigifredo Rodriguez MD - Last Filed: 01/17/23 16:06> Discharge Plan Discharge Clinical Impression: Atypical chest pain <NATALIYA Stark - Last Filed: 01/17/23 11:48> Patient Disposition: Home, Self-Care <NATALIYA Stark - Last Filed: 01/17/23 11:48> Instructions: Chest Pain (DC), Esophagitis (ED), Esophageal Spasm (ED) <NATALIYA Stark - Last Filed: 01/17/23 11:48> Prescriptions: New pantoprazole 40 mg tablet,delayed release (DR/EC) 40 mg PO DAILY Qty: 30 0RF ondansetron 4 mg tablet,disintegrating 4 mg PO Q8H PRN (Reason: nausea and vomiting) Qty: 10 0RF No Action ondansetron 4 mg tablet,disintegrating 4 mg PO Q8H PRN (Reason: nausea and vomiting) Qty: 20 0RF omeprazole magnesium [Prilosec OTC] 20 mg Tablet,Delayed Release (Dr/Ec) 20 mg PO DAILY lidocaine HCl [Lidocaine Viscous] 2 % solution 1.2 ml mucous membrane BID PRN (Reason: pain) Qty: 100 0RF prednisone 20 mg tablet 20 mg PO DAILY 12 Days Qty: 26 0RF Rx Instructions: Take 3 tablets for 5 days THEN; Take 2 tablets for 4 days THEN; Take 1 tablet for 3 days penicillin V potassium 500 mg tablet 500 mg PO BID 10 Days Qty: 20 0RF valacyclovir 1 gram tablet 1,000 mg PO DAILY hydroxyzine HCl 10 mg tablet 10 - 20 mg PO BID PRN (Reason: anxiety) <NATALIYA Stark - Last Filed: 01/17/23 11:48> Referrals: [facility] [place] [facility] [Provider Group] <NATALIYA Stark - Last Filed: 01/17/23 11:48>
--- NOTE | 2023-01-17 11:45 | ECG_ITS ---
Test Reason : cp Blood Pressure : / mmHG Vent. Rate : 089 BPM Atrial Rate : 089 BPM P-R Int : 132 ms QRS Dur : 064 ms QT Int : 352 ms P-R-T Axes : 053 074 020 degrees QTc Int : 428 ms Normal sinus rhythm with sinus arrhythmia Normal ECG When compared with ECG of 26-DEC-2021 04:09, No significant change was found Referred By: Janie Streeter Electronically Signed By:Dawit Rodriguez
[2023-01-17 15:15] LABS: MANUAL DIFF FLAG NO
[2023-01-17 15:18] LABS: Basophils Percent Auto 0.4 % (0-2); Eosinophils Percent Auto 0.3 % (0-4); Hematocrit 42.9 % (37.0-47.0); Hemoglobin 14.3 g/dl (12.0-16.0); Imm Gran Abs Auto 0.01 X10*3/uL (0.00-0.03); Imm Gran Pct Auto 0.1 % (0.0-0.4); Lymphocytes Percent Auto 28.3 % (20-40); Mean Corpuscular HGB Conc 33.3 g/dl (31.0-35.0); Mean Corpuscular Hemoglobin 29.4 pg (27.0-33.0); Mean Corpuscular Volume 88.3 fL (80.0-98.0); Mean Platelet Volume 10.1 fL (9.4-12.3); Monocytes Absolute Auto 0.5 X10*3/uL (0.1-1.2); Neutrophils Absolute Auto 4.6 x10*3/uL (2.0-8.3); Neutrophils Percent Auto 63.9 % (45-73); Platelet Count 313 X10*3/uL (160-400); Red Blood Count 4.86 X10*6/uL (4.20-5.50); White Blood Count 7.1 X10*3/uL (4.8-10.8)
[2023-01-17 15:21] LABS: INTERNATIONAL NORM RATIO 1.1 (0.9-1.1); Prothrombin Time 12.2 SEC (10.0-13.1)
[2023-01-17 15:32] LABS: Alanine Aminotransferase 11 U/L (0-31); Albumin Level 4.3 g/dL (3.5-5.0); Alkaline Phosphatase 66 U/L (39-117); Anion Gap 13 (12-20); Aspartate Amino Transferase 18 U/L (5-31); Bilirubin Total 0.7 mg/dL (0.0-1.0); Blood Urea Nitrogen 11 mg/dL (9-16); Calcium 9.2 mg/dL (8.4-10.2); Carbon Dioxide 24 mmol/L (22-29); Chloride 105 mmol/L (96-108); Creatinine Clr Calc Pharmacy 68.9; Estimated Glomerular Filt Rate > 60; Glucose Random 75 mg/dL (60-115); Magnesium 1.8 mg/dL (1.6-2.6); Potassium 4.1 mmol/L (3.3-5.1); Sodium 138 mmol/L (135-145); Total Protein 7.4 g/dL (6.5-8.0)
[2023-01-17 15:39] LABS: HCG Quantitative < 2 mIU/mL
[2023-01-17 15:53] VITALS: BP 109/77; PULSE 75; RESP 14; O2SAT 100
[2023-01-17 15:53] LABS: TSH reflex Free T4 0.36 uIU/mL (0.32-4.0)
== END 2023-01-17 16:35 | disposition home or self-care (01) ==
PROVIDERS: Physician Assistant Medical; Emergency Provider Emergency Medicine
DX: R07.89 Other chest pain (principal); R42 Dizziness and giddiness; R11.2 Nausea with vomiting, unspecified; Z79.899 Other long term (current) drug therapy
CPT/HCPCS: 36415; 71046; 80053; 83735; 84443; 84702; 85025; 85610; 93005; 99283; 99284

== ENCOUNTER 2023-07-07 13:38 | Outpatient (REF) | payer MEDICAID, SELFPAY ==
--- NOTE | ~2023-07-07 | XR_ITS ---
EXAMINATION: XR KNEE, RIGHT XR KNEE, LEFT CLINICAL INFORMATION: Bilateral chronic knee pain. COMPARISON: 01/10/2016 TECHNIQUE: 3 views of each knee were obtained. FINDINGS: Alignment is anatomic. Joint spaces are maintained. No displaced fracture. No significant joint effusion. XR/XR knee RT 3V IMPRESSION: No acute abnormality.
--- NOTE | ~2023-07-07 | XR_ITS ---
EXAMINATION: XR KNEE, RIGHT XR KNEE, LEFT CLINICAL INFORMATION: Bilateral chronic knee pain. COMPARISON: 01/10/2016 TECHNIQUE: 3 views of each knee were obtained. FINDINGS: Alignment is anatomic. Joint spaces are maintained. No displaced fracture. No significant joint effusion. XR/XR knee LT 3V IMPRESSION: No acute abnormality.
== END 2023-07-07 13:39 | disposition home or self-care (01) ==
LOC: HO.HHCX 13:38
PROVIDERS: Visit Provider Internal Medicine
DX: M25.561 Pain in right knee (principal); M25.562 Pain in left knee
CPT/HCPCS: 73562

== ENCOUNTER 2023-07-29 18:17 | Outpatient (REF) | payer MEDICAID, SELFPAY ==
[2023-08-01 17:33] LABS: C. trachomatis RNA TMA NOT DETECTED (NOT DETECTED); N. gonorrhoeae RNA TMA NOT DETECTED (NOT DETECTED)
== END 2023-07-29 18:18 | disposition home or self-care (01) ==
LOC: HO.LNP 18:17
PROVIDERS: Visit Provider Registered Nurse
DX: R10.2 Pelvic and perineal pain (principal); Z11.3 Encounter for screening for infections with a predominantly sexual mode of transmission
CPT/HCPCS: 0353U; 87491; 87591; 88142

== ENCOUNTER 2023-10-13 13:58 | Outpatient (AMB) | payer MEDICAID, SELFPAY ==
[2023-10-13 14:02] VITALS: BP 110/66; BMI 21.2
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
== END 2023-10-13 16:10 | disposition home or self-care (01) ==
PROVIDERS: PCP Internal Medicine; Visit Provider Advanced Practice Midwife
DX: Z87.42 Personal history of other diseases of the female genital tract (principal); F41.9 Anxiety disorder, unspecified; A60.00 Herpesviral infection of urogenital system, unspecified
CPT/HCPCS: 99203

== ENCOUNTER → 2023-10-13 13:58 | Outpatient (BNVA) | payer MEDICAID, SELFPAY | PROVIDERS: PCP Internal Medicine; Visit Provider Advanced Practice Midwife | DX: A60.00 Herpesviral infection of urogenital system, unspecified (principal); F41.9 Anxiety disorder, unspecified; Z87.42 Personal history of other diseases of the female genital tract | CPT/HCPCS: 99212 ==

== ENCOUNTER 2024-01-19 12:58 | Outpatient (RCR) | payer MEDICAID, SELFPAY ==
--- NOTE | 2024-01-19 13:51 | MHC.PT.EP ---
[facility] [place] [facility] [place] [facility] [place] Office [address] Katty Callejas [address] [phone] F: [phone] F: [phone] F: [phone] F: [phone] Physical Therapy Plan of Care Date of Evaluation: 01/19/24 Date of Surgery: Diagnosis: This is a 23 yo female presenting to skilled PT with a script for B LBP w/o sciatica. Assessment: This is a 23 yo female presenting to skilled PT with a script for B LBP w/o sciatica. Patient reporting ongoing back pain for many years, no injury noted. Today her pain is located at the L side low back. It can radiate into her leg, anterior and posteriorly to the toes. Pain depends on the day, the leg is numb and tingling when occurring and low back is sharp. Pain increases with sitting >hr, standing >hr. There is nothing, positional or otherwise that improves her pain. Pain is every day and constant. Uses a heating pad for pain relief, occasionally a tylenol. She has never had PT for her back in the past but does have a referral for pelvic floor PT as well. Assessment reveals pain that ranges from up to a 5/10 at the worst. Patient demos decreased lumbar ROM, strength of core, back and BLE, very TTP at lumbar tissues and vertebrae, + S/S for SIJ involvement however too tender to assess PSIS or sacral alignment and impaired posture with forward head and rounded shoulders. Based on functional limitations, impaired QOL and pain tolerance patient is a good candidate for skilled PT 2x/wk for 4wks. Our plan is to trial traditional PT first and if pain continues, trial pelvic floor PT. Frequency and Duration: The patient will be seen 2x/wk for 4wks Short Term Goals: Pt will demonstrate improved postural awareness and understanding of core engagement with supine and standing tasks without cues throughout session to improve overall back safety in 2 weeks. Pt will demonstrate centralization of sx in 2 weeks. Pt will continue to reinforce precautions, sitting, standing and ADL modifications with proper body mechanics in 2 wks. Long-Term Goals: Pt will demonstrate improved outcome measure by 5 points in 4 weeks for improved functional mobility. Pt will demonstrate ability to bend and lift WNL min to no pain for household tasks in 4 wks. Pt will be I in HEP and compliant in 4wks Treatment Plan: Modalities to reduce pain, spasms and effusion. Manual therapy to restore motion and function. Therapeutic exercise to improve strength and flexibility. Neuromuscular re-education for posture and balance. Therapeutic activities to return to functional activities of daily living. Electronically signed by: Marisabel Gonzalez, PT Please sign and return to therapist. Thank you for your referral.
== END 2024-02-24 14:44 | disposition home or self-care (01) ==
LOC: HO.PTCHIC 12:58
PROVIDERS: PCP Registered Nurse; Visit Provider Registered Nurse
DX: M54.50 Low back pain, unspecified (principal)
CPT/HCPCS: 97110; 97162

== ENCOUNTER 2024-02-01 06:22 | Emergency (ER) | payer MEDICAID, SELFPAY ==
[2024-02-01 06:33] VITALS: BP 100/64; BP 105/88; PULSE 104; PULSE 95; RESP 18; TEMP 36.4; O2SAT 100; BMI 20.2
[2024-02-01 06:59] LABS: Basophils Absolute Auto 0.1 X10*3/uL (0.0-0.2); Basophils Percent Auto 0.2 % (0-2); Hemoglobin 13.9 g/dl (12.0-16.0); Imm Gran Abs Auto 0.07 X10*3/uL (0.00-0.03); Imm Gran Pct Auto 0.3 % (0.0-0.4); Lymphocytes Absolute Auto 0.7 X10*3/uL (1.2-4.9); Lymphocytes Percent Auto 3.2 % (20-40); MANUAL DIFF FLAG SCAN; Mean Corpuscular HGB Conc 33.9 g/dl (31.0-35.0); Mean Corpuscular Hemoglobin 29.3 pg (27.0-33.0); Mean Corpuscular Volume 86.3 fL (80.0-98.0); Mean Platelet Volume 9.6 fL (9.4-12.3); Monocytes Percent Auto 5.1 % (2-11); Neutrophils Absolute Auto 18.5 x10*3/uL (2.0-8.3); Neutrophils Percent Auto 91.2 % (45-73); Platelet Count 325 X10*3/uL (160-400); Red Blood Count 4.75 X10*6/uL (4.20-5.50); SCAN SMEAR FLAG 1; White Blood Count 20.3 X10*3/uL (4.8-10.8)
[2024-02-01 07:14] LABS: COVID-19 Test Negative (Negative); IDNOW Serial# 08D9AD1C; IDNOW Serial# 152EDE1D; Influenza A Negative (Negative); Influenza B2 Negative (Negative)
[2024-02-01 07:18] LABS: Anion Gap 17 (12-20)
[2024-02-01 07:21] LABS: Alanine Aminotransferase 15 U/L (0-31); Albumin Level 4.5 g/dL (3.5-5.0); Alkaline Phosphatase 81 U/L (39-117); Aspartate Amino Transferase 20 U/L (5-31); Bilirubin Direct 0.2 mg/dL (0.0-0.5); Bilirubin Total 0.5 mg/dL (0.0-1.0); Blood Urea Nitrogen 13 mg/dL (9-16); Calcium 9.5 mg/dL (8.4-10.2); Carbon Dioxide 19 mmol/L (22-29); Chloride 106 mmol/L (96-108); Creatinine Clr Calc Pharmacy 55.7; Estimated Glomerular Filt Rate > 60; Glucose Random 178 mg/dL (60-115); Lipase 15 U/L (8-78); Potassium 4.2 mmol/L (3.3-5.1); Sodium 138 mmol/L (135-145); Total Protein 8.2 g/dL (6.5-8.0)
[2024-02-01 07:27] LABS: HCG Quantitative < 2 mIU/mL
[2024-02-01 07:41] VITALS: PULSE 113; PULSE 121; RESP 20; O2SAT 100
--- NOTE | 2024-02-01 07:49 | ED.NAVMDI ---
HPI - Nausea/Vomiting/Diarrhea General Chief complaint: Abdominal Pain Stated complaint: Anxiety attack Time Seen by Provider: 02/01/24 07:32 Source: patient Mode of arrival: ambulatory Limitations: no limitations History of Present Illness HPI Narrative: 23-year-old female with history of anxiety, chronic cholecystitis, dysmenorrhea who presents emergency department for evaluation of abdominal pain, nausea, vomiting, diarrhea. Patient states that at around 02:00 hours she felt like she was having a panic attack. She states that she felt hot and cold. She states she had to pace around the room. She also states that her ?my felt weird ?. Patient states she had multiple episodes of vomiting and diarrhea. She also has a burning sensation in her chest and throat secondary to vomiting. She states she has had similar symptoms in the past when she has had anxiety. She points to her epigastric area when asked to localize her abdominal pain, she describes this as a burning sensation which is constant. The patient states that she is supposed to take omeprazole but did not start this medication. She complained of subjective fever and chills. She denied rhinorrhea, cough, shortness of breath, dyspnea on exertion. Related Data Home Medications Medication Instructions Recorded Confirmed gabapentin 100 mg capsule 100 mg PO BID 10/13/23 10/13/23 aripiprazole 2 mg tablet 2 mg PO DAILY 11/18/23 omeprazole 20 mg capsule,delayed 20 mg PO 11/18/23 release Previous Rx's Medication Instructions Recorded ondansetron 4 mg disintegrating 4 mg PO Q6-8H PRN nausea and 02/01/24 tablet vomiting #14 tabs Allergies Allergy/AdvReac Type Severity Reaction Status Date / Time tree and shrub pollen Allergy Mild Unknown Verified 10/13/23 14:06 apple [APPLES] Allergy Unknown THROAT Verified 10/13/23 14:06 ITCHY peach [PEACHES] Allergy Unknown ITCHY Verified 10/13/23 14:06 THROAT Review of Systems Review of Systems: Yes all other systems are reviewed and are negative FOR[facility]LY [facility], [facility] Past Medical History [facility], [facility] Narrative: Social history: She denies tobacco, alcohol and drug use. Medical History COVID-19 vaccine series completed GERD (gastroesophageal reflux disease) Depression Herpes COVID-19 virus infection Surgical History [place] teeth extracted Family History Family History Mother Cancer of unknown origin Social History Social History Are you a primary care management assistant to a significant other at home: No Do you presently have visiting nurse or other home services: No Alcohol intake: never Patient Tobacco Use Status: Never used Tobacco Substance Use Type: Marijuana Advance Directives: No Physical Exam Vital Signs: Vital Signs: Last Vital Signs Temp 98.2 F 02/01/24 15:23 Pulse 111 H 02/01/24 15:23 Resp 18 02/01/24 15:23 BP 101/64 02/01/24 15:23 Pulse Ox 97 02/01/24 15:23 O2 Del Method Room Air 02/01/24 15:23 BMI result Body Mass Index 20.2 Vital signs were normal Exam: General: Awake, appears anxious, answers questions appropriately Head: Normocephalic, atraumatic EENT: PERRL, Lids normal, sclera normal, conjunctiva normal, nose normal , ears normal, throat without erythema or exudates Neck: Supple, no adenopathy Lung: breath sounds symmetric, no wheezing, rales or rhonchi Chest: symmetric movement, nontender Heart: regular rate and rhythm, normal S1, S2 no murmurs or rubs Abdomen: soft, moderate epigastric tenderness, nondistended, normal bowel sounds Back: no vertebral tenderness, no CVAT Extremities: no deformities, moves all extremities symmetrically Neuro: Awake, alert, oriented, normal speech, cranial nerves intact, moves all extremities symmetrically Psych: Pleasant, cooperative Medications Administered Discontinued Medications Generic Name Dose Route Start Last Admin Trade Name Freq PRN Reason Stop Dose Admin Al Hydroxide/Mg Hydroxide 30 ml 02/01/24 15:01 02/01/24 15:07 Magnesium Hydrox/Alum Hydrox 30 Ml Oral.Susp PO 02/01/24 15:02 30 ml ONCE STA Administration Belladonna Alkaloids/Phenobarbital 10 ml 02/01/24 15:01 02/01/24 15:07 Phenobarb/Hyoscy/Atropine/Scop 10 Ml Elixir PO 02/01/24 15:02 10 ml ONCE ONE Administration Sodium Chloride 1,000 mls @ 999 mls/hr 02/01/24 07:49 02/01/24 09:09 Ns IV 02/01/24 08:49 Infused .Q1H1M STA Infusion Promethazine HCl 12.5 mg/ 50.5 mls @ 202 mls/hr 02/01/24 12:49 02/01/24 14:05 Sodium Chloride IV 02/01/24 12:50 Infused ONCE ONE Infusion Lactated Ringer's 1,000 mls @ 999 mls/hr 02/01/24 13:00 02/01/24 14:05 Lr IV 02/01/24 14:00 Infused .Q1H1M JANEY Infusion Ketorolac Tromethamine 15 mg 02/01/24 07:50 02/01/24 08:13 Ketorolac Tromethamine 15 Mg/Ml Vial IVPUSH 02/01/24 07:51 15 mg ONCE STA Administration Lidocaine HCl 10 ml 02/01/24 15:01 02/01/24 15:07 Lidocaine Hcl Viscous 2 % 15 Ml Solution PO 02/01/24 15:02 10 ml ONCE ONE Administration Lorazepam 1 mg 02/01/24 07:49 02/01/24 08:14 Lorazepam 2 Mg/Ml Vial IVPUSH 02/01/24 07:50 1 mg STAT STA Administration Lorazepam 1 mg 02/01/24 10:07 02/01/24 10:15 Lorazepam 2 Mg/Ml Vial IVPUSH 02/01/24 10:08 1 mg STAT STA Administration Medical Decision Making Medical Decision Making MDM Narrative: 23-year-old female with history of anxiety, chronic cholecystitis, dysmenorrhea who presents emergency department for evaluation of abdominal pain, nausea, vomiting, diarrhea symptoms beginning at 02:00 hours. Patient states she has had similar symptoms in the past secondary to anxiety. Patient also is supposed to be taking omeprazole for GERD but she has not started this medication. Vital signs were normal. Patient did appear to be anxious. Abdominal exam did reveal epigastric tenderness. Differential diagnosis: ?Includes but is not limited to anxiety, panic attack, gastritis, pancreatitis, appendicitis, electrolyte abnormalities, anemia Following evaluation was ordered: CBC, CMP, lipase, COVID-19, quantitative beta-hCG, liver panel, urinalysis, strep test, influenza, COVID Patient was initially treated with the following: Toradol 15 mg IV, lorazepam 1 mg IV, normal saline x1 L Course: 10:04 My interpretation patient's laboratory evaluation is as follows: WBC elevated 20,300. Normal H&H 13 and 41. Elevated glucose 178. Low bicarb 19. LFTs and lipase were normal. COVID-19 and influenza were negative. Rapid strep was negative. Patient states she only got minimal improvement of the above treatment. Repeat abdominal exam did reveal epigastric tenderness with no localizing tenderness. Patient was ordered to get Ativan 1 mg IV , Reglan 10 mg IV and Benadryl 25 mg IV 12:50 Patient states that she still feels lightheaded and dizzy, complaining of epigastric pain and nausea. Patient was ordered to get Phenergan 12.5 mg IV and lactated Ringer's IV x1 L 14:39 Patient states that she still has nausea with dizziness is feeling better and would like to go home at this point. She states that she has taken Zofran ODT in the past and this has helped with the nausea therefore she was given a prescription for this medication. She does have antianxiety medications at home that she can take. Patient most likely has a viral syndrome as the cause of her symptoms she was given printed and verbal instructions discharged home. Patient may also have gastritis and she was advised to take her omeprazole as prescribed. Admission/Observation Consideration of admission/observation: Escalation of care including admission/observation considered Lab Data MDM Lab Attestation statement: I reviewed the patient's lab results. 02/01/24 06:50 02/01/24 06:50 Labs: Lab Results 02/01/24 02/01/24 02/01/24 Range/Units 06:50 08:03 10:29 WBC 20.3 H (4.8-10.8) X10*3/uL RBC 4.75 (4.20-5.50) X10*6/uL Hgb 13.9 (12.0-16.0) g/dl Hct 41.0 (37.0-47.0) % MCV 86.3 (80.0-98.0) fL MCH 29.3 (27.0-33.0) pg MCHC 33.9 (31.0-35.0) g/dl RDW 12.0 (11.0-16.0) % Plt Count 325 (160-400) X10*3/uL MPV 9.6 (9.4-12.3) fL Immature Gran % (Auto) 0.3 (0.0-0.4) % Neut % (Auto) 91.2 H (45-73) % Lymph % (Auto) 3.2 L (20-40) % [place] % (Auto) 5.1 (2-11) % Eos % (Auto) 0.0 (0-4) % Baso % (Auto) 0.2 (0-2) % Lymph # (Auto) 0.7 L (1.2-4.9) X10*3/uL [place] # (Auto) 1.0 (0.1-1.2) X10*3/uL Eos # (Auto) 0.0 (0.0-0.4) X10*3/uL Baso # (Auto) 0.1 (0.0-0.2) X10*3/uL Abs Immat Gran (auto) 0.07 H (0.00-0.03) X10*3/uL Absolute Neuts (auto) 18.5 H (2.0-8.3) x10*3/uL Absolute Nucleated RBC 0.000 (0.0-0.012) X10*3/uL Nucleated RBC % (auto) 0.0 (0.0-0.2) /100WBC Smear Tech's Comments VERIFIED Sodium 138 (135-145) mmol/L Potassium 4.2 (3.3-5.1) mmol/L Chloride 106 (96-108) mmol/L Carbon Dioxide 19 L (22-29) mmol/L Anion Gap 17 (12-20) BUN 13 (9-16) mg/dL Creatinine 1.08 (0.5-1.4) mg/dL Estim Creat Clear Calc 55.7 Estimated GFR > 60 Random Glucose 178 H (60-115) mg/dL Calcium 9.5 (8.4-10.2) mg/dL Total Bilirubin 0.5 (0.0-1.0) mg/dL Direct Bilirubin 0.2 (0.0-0.5) mg/dL AST 20 (5-31) U/L ALT 15 (0-31) U/L Alkaline Phosphatase 81 (39-117) U/L Total Protein 8.2 H (6.5-8.0) g/dL Albumin 4.5 (3.5-5.0) g/dL Lipase 15 (8-78) U/L Beta HCG, Quant < 2 mIU/mL Urine Color Yellow Urine Appearance Hazy Urine pH 7.5 (5.0-9.0) Ur Specific Goodell 1.020 (1.005-1.025) Urine Protein 30 (1+) H (Neg-Trace) mg/dL Urine Glucose (UA) Negative (Negative) mg/dL Urine Ketones 40 (Negative) mg/dL Urine Blood Negative (Negative) Urine Nitrite Negative (Negative) Ur Leukocyte Esterase Negative (Negative) Urine RBC 0-2 (0-2) /HPF Urine WBC 0-5 (0-5) /HPF Ur Squamous Epith Cells 6-10 (0-2) /HPF Urine Bacteria 2+ (None Seen) Hyaline Casts 0-2 (0-2) /LPF COVID-19 (JF) Negative (Negative) COVID-19 Clin Com See Note Influenza Type A (ELIDIA) Negative (Negative) Influenza Type B (ELIDIA) Negative (Negative) Influenza A & B Note See Note S. pyogenes GrpA ELIDIA Negative (Negative) Prescription Management I considered prescription management with: Other (Antiemetics) Chronic Conditions Patient?s care impacted by: Other (Anxiety disorder) Discharge Plan Discharge Clinical Impression: Viral syndrome, Vomiting, Diarrhea, Gastritis Patient Disposition: Home, Self-Care Instructions: Gastritis (ED), Viral Syndrome (ED) Additional Instructions: Your laboratory evaluation did reveal an elevated white blood cell count, elevated glucose but otherwise was unremarkable Your symptoms are consistent with a viral infection as well as inflammation of your stomach (gastritis) Take Zofran ODT 4 mg pills, 1 pill dissolved in your mouth every 8 hours as needed for nausea and vomiting. Take your Prilosec (omeprazole) 20 mg pills, 1 pill once a day for 1 month. ?This medication shuts off your acid production and lets the inflammation in your stomach and esophagus heal. Follow-up with your doctor in 2 days. Please return to the emergency department if your symptoms get worse or if you develop any symptoms that are concerning to you. Prescriptions: New ondansetron 4 mg tablet,disintegrating 4 mg PO Q6-8H PRN (Reason: nausea and vomiting) Qty: 14 0RF No Action gabapentin 100 mg capsule 100 mg PO BID aripiprazole 2 mg tablet 2 mg PO DAILY omeprazole 20 mg capsule,delayed release(DR/EC) 20 mg PO Stand Alone Forms: Work/School Release
[2024-02-01] MEDS: Ketorolac Tromethamine 15 MG/ML VIAL IVPUSH (08:13)
[2024-02-01] MEDS: 0.9 % Sodium Chloride 1,000 ML 999 ML IV (08:13)
[2024-02-01] MEDS: LORazepam 2 MG/ML VIAL 1 MG IVPUSH ×2 (08:14→10:15)
[2024-02-01 08:20] LABS: SLIDE REVIEW VERIFIED
[2024-02-01 09:10] LABS: IDNOW Serial# 58CA691E; Strep A Nucleic Acid Negative (Negative)
--- NOTE | 2024-02-01 09:10 | PC.NURSE ---
This RN just went in to re-assess patient, she is currently sleeping, IVF completed.
[2024-02-01 10:35] LABS: Appearance Urine Hazy; Color Urine Yellow; Glucose Urine UA Negative (Negative); Leukocyte Esterase Urine Negative (Negative); Nitrite Urine Negative (Negative); PH 7.5 (5.0-9.0); UMIC TRIGGER UACC YES; Urine Blood Negative (Negative); Urine Ketones 40 mg/dL (Negative); Urine Protein 30 (1+) mg/dL (Neg-Trace)
[2024-02-01 11:19] LABS: Bacteria Urine 2+ (None Seen); Hyaline Casts Urine 0-2 /LPF (0-2); RBC Urine 0-2 /HPF (0-2); WBC Urine 0-5 /HPF (0-5)
[2024-02-01] MEDS: Lactated Ringers 1,000 ML 999 ML IV (13:09)
[2024-02-01] MEDS: Lidocaine HCl Viscous 2 % 15 ML SOLUTION 10 ML PO (15:07)
[2024-02-01] MEDS: Magnesium Hydrox/Alum Hydrox 30 ML ORAL.SUSP PO (15:07)
[2024-02-01] MEDS: PHENobarb/Hyoscy/Atropine/Scop 10 ML ELIXIR PO (15:07)
[2024-02-01 15:23] VITALS: BP 101/64; PULSE 111; RESP 18; TEMP 36.8; O2SAT 97
[2024-02-01 16:17] VITALS: BP 101/64; PULSE 111; RESP 18; TEMP 36.8; O2SAT 97
== END 2024-02-01 16:19 | disposition home or self-care (01) ==
PROVIDERS: Emergency Provider Emergency Medicine Emergency Medical Services; PCP Registered Nurse
DX: R10.9 Unspecified abdominal pain (principal); R11.2 Nausea with vomiting, unspecified; R19.7 Diarrhea, unspecified; F41.9 Anxiety disorder, unspecified; R42 Dizziness and giddiness; B34.9 Viral infection, unspecified; K29.70 Gastritis, unspecified, without bleeding
CPT/HCPCS: 80053; 81001; 82248; 83690; 84702; 85025; 87502; 87635; 87651; 96361; 96374; 96375; 96376; 99284; 99285; J1885; J2060; J2550; J7120

== ENCOUNTER 2024-03-19 00:59 | Emergency (ER) | payer MEDICAID, SELFPAY ==
--- NOTE | 2024-03-19 | ECG_ITS ---
Test Reason : CHEST PAIN Blood Pressure : / mmHG Vent. Rate : 088 BPM Atrial Rate : 088 BPM P-R Int : 134 ms QRS Dur : 074 ms QT Int : 366 ms P-R-T Axes : 035 060 034 degrees QTc Int : 442 ms Normal sinus rhythm Normal ECG When compared with ECG of 17-JAN-2023 11:47, No significant change was found Referred By: Virginia Robert Electronically Signed By:JENNIFER CAMPOVERDE MD
--- NOTE | ~2024-03-19 | XR_ITS ---
EXAMINATION: XR CHEST CLINICAL INFORMATION: Chest pain COMPARISON: 01/17/2023 TECHNIQUE: Frontal view of the chest was obtained. FINDINGS: The lungs are clear with no focal consolidation. No evidence of pneumothorax, pulmonary edema, or pleural effusions. The cardiomediastinal silhouette is unremarkable. No acute osseous findings. XR/XR chest 1V IMPRESSION: No acute cardiopulmonary findings.
[2024-03-19 01:05] VITALS: BP 129/83; PULSE 97; RESP 18; TEMP 37.1; O2SAT 100
[2024-03-19 01:07] VITALS: BP 118/82; PULSE 82; O2SAT 98; BMI 20.2
[2024-03-19 01:23] LABS: MANUAL DIFF FLAG NO
[2024-03-19 01:25] LABS: Basophils Percent Auto 0.3 % (0-2); Eosinophils Absolute Auto 0.1 X10*3/uL (0.0-0.4); Eosinophils Percent Auto 0.7 % (0-4); Hematocrit 39.8 % (37.0-47.0); Hemoglobin 13.4 g/dl (12.0-16.0); Imm Gran Abs Auto 0.02 X10*3/uL (0.00-0.03); Imm Gran Pct Auto 0.2 % (0.0-0.4); Mean Corpuscular HGB Conc 33.7 g/dl (31.0-35.0); Mean Corpuscular Hemoglobin 29.5 pg (27.0-33.0); Mean Corpuscular Volume 87.7 fL (80.0-98.0); Mean Platelet Volume 9.7 fL (9.4-12.3); Monocytes Absolute Auto 0.6 X10*3/uL (0.1-1.2); Monocytes Percent Auto 7.1 % (2-11); Neutrophils Absolute Auto 7.2 x10*3/uL (2.0-8.3); Neutrophils Percent Auto 80.7 % (45-73); Platelet Count 289 X10*3/uL (160-400); Red Blood Count 4.54 X10*6/uL (4.20-5.50); Red Cell Distribution Width 12.2 % (11.0-16.0)
[2024-03-19 01:46] LABS: Alanine Aminotransferase 11 U/L (0-31); Albumin Level 4.2 g/dL (3.5-5.0); Alkaline Phosphatase 80 U/L (39-117); Anion Gap 14 (12-20); Aspartate Amino Transferase 20 U/L (5-31); Bilirubin Total 0.4 mg/dL (0.0-1.0); Blood Urea Nitrogen 13 mg/dL (9-16); Calcium 9.4 mg/dL (8.4-10.2); Carbon Dioxide 22 mmol/L (22-29); Chloride 107 mmol/L (96-108); Creatinine Clr Calc Pharmacy 88.3; Estimated Glomerular Filt Rate > 60; Glucose Random 108 mg/dL (60-115); HCG Quantitative < 2 mIU/mL; Magnesium 1.7 mg/dL (1.6-2.6); Sodium 139 mmol/L (135-145); Troponin-I High Sensitivity < 2.7 ng/L (<3.5-17.0)
--- NOTE | 2024-03-19 02:44 | ED_ITS ---
HPI - Chest Pain General Chief Complaint: Chest Pain Stated Complaint: DIZZINESS, ANXIETY Time Seen by Provider: 03/19/24 01:04 History of Present Illness HPI narrative: Patient is a 23-year-old female with a history of anxiety. Presents today with having chest pain. The chest pain started at approximately 15:00 it is mid chest. Not made worse with breathing. No history diabetes, hypertension, high cholesterol, smoking, mi. patient not on control. There has no leg swelling that is new. Patient is from home. Has a long history of anxiety. It is worse with lying down. Related Data Home Medications ?Medication ?Instructions ?Recorded ?Confirmed gabapentin 100 mg capsule 100 mg PO BID 10/13/23 10/13/23 aripiprazole 2 mg tablet 2 mg PO DAILY 11/18/23 omeprazole 20 mg capsule,delayed 20 mg PO 11/18/23 release Previous Rx's ?Medication ?Instructions ?Recorded ondansetron 4 mg disintegrating 4 mg PO Q6-8H PRN nausea and 02/01/24 tablet vomiting #14 tabs pantoprazole 40 mg tablet,delayed 40 mg PO DAILY #14 tabs 03/19/24 release (Protonix) Allergies Allergy/AdvReac Type Severity Reaction Status Date / Time tree and shrub pollen Allergy Mild Unknown Verified 03/19/24 01:10 apple [APPLES] Allergy Unknown THROAT Verified 03/19/24 01:10 ITCHY peach [PEACHES] Allergy Unknown ITCHY Verified 03/19/24 01:10 THROAT Review of Systems 2 Review of Systems: Positive chest pain PMFSH Past Medical History Attestation statement: The following information was validated with the patient. Medical History COVID-19 vaccine series completed GERD (gastroesophageal reflux disease) Depression Herpes COVID-19 virus infection Surgical History [place] teeth extracted Family History Family History Mother Cancer of unknown origin Social History Social History Are you a primary medicare biller to a significant other at home: No Do you presently have visiting nurse or other home services: No Alcohol intake: never Patient Tobacco Use Status: Never used Tobacco Smoked in Last 30 Days: No Substance Use Type: Marijuana Advance Directives: No Advance Directives Information Provided: No Do you have a plan to hurt others: No Plan Patient : No Physical Exam 2 Vital Signs: Vital Signs: Last Vital Signs Temp 98.0 F 03/19/24 06:11 Pulse 97 03/19/24 06:11 Resp 18 03/19/24 06:11 BP 116/73 03/19/24 06:11 Pulse Ox 99 03/19/24 06:11 O2 Del Method Room Air 03/19/24 06:11 BMI result Body Mass Index 20.2 Appearance: Alert. Oriented X3. No acute distress. Eyes: Pupils equal, round and reactive to light. ENT: Pharynx normal. Neck: Normal inspection. Neck supple. No lymph nodes noted. No crepitus CVS: Normal heart rate and rhythm. Pulses normal. Normal S1 and S2 Respiratory: No respiratory distress. Breath sounds normal. No Wheezing. No rales Abdomen: Soft and nontender. No rigidity. No distention. good BS x4 Skin: Skin warm and dry. Normal skin color. Normal skin turgor. Extremities: No lower extremity edema. Neurovascular intact to all extremities. No Lacerations. No Rash Neuro: Oriented X 3. No motor deficit. No sensory deficit. Moving all extermities. No slurred speech Medications Administered Discontinued Medications Generic Name Dose Route Start Last Admin Trade Name Freq PRN Reason Stop Dose Admin Al Hydroxide/Mg Hydroxide 30 ml 03/19/24 02:45 03/19/24 02:52 Magnesium Hydrox/Alum Hydrox 30 Ml Oral.Susp PO 03/19/24 02:46 30 ml ONCE ONE Administration Lorazepam 0.5 mg 03/19/24 02:43 03/19/24 02:51 Lorazepam 2 Mg/Ml Vial IVPUSH 03/19/24 02:44 0.5 mg ONCE ONE Administration Medical Decision Making Medical Decision Making [facility] Narrative: My interpretation of patient's EKG showed a sinus rhythm heart rate is 90 MS QRS QTC normal there has no acute ST segment elevation. Patient well-appearing. Positive chest pain. 23 years old with no significant cardiac risk factor. Pain atypical for ACS. Patient's troponin is negative. EKG is normal. Heart score is less than 3 unlikely secondary to ACS. Question anxiety versus reflux. Patient's test was negative. Unlikely secondary to related issue LFTs are normal. No evidence for biliary disease. A dose of Maalox will be given. Dose of Ativan will be given for anxiety. Will monitor carefully Patient's chest x-ray showed no evidence of pneumonia. No pneumothorax. test was negative. Troponin less than 2.7 unlikely ACS. Liver profile is normal pancreatic profile is normal question gastritis will start patient on a PPI. Patient to be discharged home. Differential Diagnosis Differential Diagnoses: The differential diagnosis associated with the presentation includes ACS, pneumonia, reflux, PE Admission/Observation Consideration of admission/observation: Escalation of care including admission/observation considered Lab Data MDM Lab Attestation statement: I reviewed the patient's lab results. 03/19/24 01:19 03/19/24 01:19 Labs: Lab Results 03/19/24 Range/Units 01:19 WBC 9.0 (4.8-10.8) X10*3/uL RBC 4.54 (4.20-5.50) X10*6/uL Hgb 13.4 (12.0-16.0) g/dl Hct 39.8 (37.0-47.0) % MCV 87.7 (80.0-98.0) fL MCH 29.5 (27.0-33.0) pg MCHC 33.7 (31.0-35.0) g/dl RDW 12.2 (11.0-16.0) % Plt Count 289 (160-400) X10*3/uL MPV 9.7 (9.4-12.3) fL Immature Gran % (Auto) 0.2 (0.0-0.4) % Neut % (Auto) 80.7 H (45-73) % Lymph % (Auto) 11.0 L (20-40) % Tyrrell % (Auto) 7.1 (2-11) % Eos % (Auto) 0.7 (0-4) % Baso % (Auto) 0.3 (0-2) % Lymph # (Auto) 1.0 L (1.2-4.9) X10*3/uL [place]rell # (Auto) 0.6 (0.1-1.2) X10*3/uL Eos # (Auto) 0.1 (0.0-0.4) X10*3/uL Baso # (Auto) 0.0 (0.0-0.2) X10*3/uL Abs Immat Gran (auto) 0.02 (0.00-0.03) X10*3/uL Absolute Neuts (auto) 7.2 (2.0-8.3) x10*3/uL Absolute Nucleated RBC 0.000 (0.0-0.012) X10*3/uL Nucleated RBC % (auto) 0.0 (0.0-0.2) /100WBC Sodium 139 (135-145) mmol/L Potassium 4.0 (3.3-5.1) mmol/L Chloride 107 (96-108) mmol/L Carbon Dioxide 22 (22-29) mmol/L Anion Gap 14 (12-20) BUN 13 (9-16) mg/dL Creatinine 0.79 (0.5-1.4) mg/dL Estim Creat Clear Calc 88.3 Estimated GFR > 60 Random Glucose 108 (60-115) mg/dL Calcium 9.4 (8.4-10.2) mg/dL Magnesium 1.7 (1.6-2.6) mg/dL Total Bilirubin 0.4 (0.0-1.0) mg/dL AST 20 (5-31) U/L ALT 11 (0-31) U/L Alkaline Phosphatase 80 (39-117) U/L Troponin I High Sens < 2.7 (<3.5-17.0) ng/L Total Protein 8.0 (6.5-8.0) g/dL Albumin 4.2 (3.5-5.0) g/dL Beta HCG, Quant < 2 mIU/mL Independent Interpretation I performed an independent interpretation of an: EKG (Sinus heart rate is 90 MS QRS QTC normal there is no acute ST segment elevation.) Radiology Impression Discussion of test interpretation with radiology: I have reviewed the radiologist's reading. Discharge Plan Discharge Clinical Impression: Chest pain, Gastritis Patient Disposition: Home, Self-Care Instructions: Chest Pain (DC), Gastritis (DC) Prescriptions: New pantoprazole [Protonix] 40 mg tablet,delayed release (DR/EC) 40 mg PO DAILY Qty: 14 0RF No Action ondansetron 4 mg tablet,disintegrating 4 mg PO Q6-8H PRN (Reason: nausea and vomiting) Qty: 14 0RF gabapentin 100 mg capsule 100 mg PO BID aripiprazole 2 mg tablet 2 mg PO DAILY omeprazole 20 mg capsule,delayed release(DR/EC) 20 mg PO Referrals: Marlo Mchugh MD [Physician] - 03/21/24 LauraRebekah simons FNP [Primary Care Provider] - Print Language: Senegalese
[2024-03-19] MEDS: LORazepam 2 MG/ML VIAL 0.5 MG IVPUSH (02:51)
[2024-03-19] MEDS: Magnesium Hydrox/Alum Hydrox 30 ML ORAL.SUSP PO (02:52)
[2024-03-19 06:11] VITALS: BP 116/73; PULSE 97; RESP 18; TEMP 36.7; O2SAT 99
[2024-03-19 07:39] VITALS: BP 110/69; PULSE 100; RESP 20; TEMP 36.9; O2SAT 98
[2024-03-19 08:29] VITALS: BP 110/69; PULSE 98; RESP 20; TEMP 36.9; O2SAT 100
== END 2024-03-19 08:15 | disposition home or self-care (01) ==
PROVIDERS: Emergency Provider Emergency Medicine Emergency Medical Services; PCP Registered Nurse
DX: R07.89 Other chest pain (principal); K29.70 Gastritis, unspecified, without bleeding; F41.9 Anxiety disorder, unspecified; R42 Dizziness and giddiness; Z79.899 Other long term (current) drug therapy
CPT/HCPCS: 36415; 71045; 80053; 83735; 84484; 84702; 85025; 93005; 96374; 99284; 99285; J2060

== ENCOUNTER → 2024-03-19 01:20 | Outpatient (BNV) | payer MEDICAID, SELFPAY | PROVIDERS: Emergency Provider Emergency Medicine Emergency Medical Services; PCP Registered Nurse; Visit Provider Internal Medicine Cardiovascular Disease | DX: R07.9 Chest pain, unspecified (principal) | CPT/HCPCS: 93010 ==

== ENCOUNTER 2024-05-03 14:53 | Outpatient (AMB) | payer MEDICAID, SELFPAY ==
--- NOTE | 2024-05-03 14:55 | MHC.OFFVIS ---
Vital Signs 05/03/24 14:56 Height 5 ft 2 in Weight 112 lb 6.972 oz BMI 20.6 BP 116/62 Blood Pressure Location Lt brachial Position Sitting Pulse 93 Pulse Source Monitor Intake Visit Reasons: new patient from the ED dx chest pain Allergies tree and shrub pollen Allergy (Mild, Verified 03/19/24 01:10) Unknown apple [APPLES] Allergy (Unknown, Verified 03/19/24 01:10) THROAT ITCHY peach [PEACHES] Allergy (Unknown, Verified 03/19/24 01:10) ITCHY THROAT Medication List - Last Reconciled 05/03/24 by Jeimy Garcia NP escitalopram oxalate mg PO famotidine 20 mg PO DAILY hydroxyzine HCl 25 mg PO QID trazodone 50 mg PO DAILY HPI Comments Details: 23-year-old female presents today for a new patient visit. She was seen 03/19/24 and 03/22/24 at [facility] and [facility] [place] for chest pains. She describes this as a chest tightness that comes in waves. It can happen at rest or with exertion. She is unsure what makes it better, worse, or triggers it. She reports she gets short of breath and fatigue easily. She has three dogs who she walks with often but she gets fatigued easily. She has a medical history of anxiety and gastric reflux. She denies any alcohol use, drug use, or smoking. [facility] Medical History COVID-19 vaccine series completed GERD (gastroesophageal reflux disease) Depression Herpes COVID-19 virus infection Surgical History [place] teeth extracted Family History Mother Cancer of unknown origin Social History Are you a primary occasional caregiver to a significant other at home: No Do you presently have visiting nurse or other home services: No Alcohol intake: never Patient Tobacco Use Status: Never used Tobacco Substance Use Type: Marijuana Female Reproductive History Menstrual Age of Menarche: 12 Review of Systems Const Denies weakness ENT Denies dizziness Card Reports chest pain, Reports chest pain at rest, Denies chest pain with activity, Denies syncope, Denies rapid heart rate, Denies pedal edema, Denies edema, Denies leg edema, Denies lightheadedness, Denies palpitations, Denies dyspnea, Denies dyspnea on exertion and Denies orthopnea Resp Denies cough, Denies dyspnea and Denies dyspnea on exertion GI Denies hematochezia and Denies change in stool character Musc Denies abnormal gait, Denies muscle cramps, Denies muscle weakness, Denies numbness, Denies radiating pain into limb and Denies tingling Neuro Denies abnormal gait, Denies dizziness, Denies syncope, Denies numbness, Denies tingling and Denies weakness Endo Denies palpitations Physical Exam Vital Signs: Last Vital Signs Pulse 93 05/03/24 14:56 BP 116/62 05/03/24 14:56 BMI result Body Mass Index 20.6 Office Procedures EKG Details: EKG today. Normal Sinus Rhythm. Rate 93 bpm. IA interval 128 ms. QRS 62 ms. QTc 445 ms. [id number], Complete Assessment & Plan Assessment & Plan (1) Chest pain: Code(s): R07.9 - Chest pain, unspecified Category: Medical Plan: Atypical chest pains. Family history of myocardial infarction. Will check echocardiogram to assess heart function and stress test to assess for ischemia. Orders: Orders CA echo transthoracic complete 05/03/24 R07.9 - Chest pain, unspecified CA stress test 05/03/24 R07.9 - Chest pain, unspecified Coding Level of Care Code Est Pt Level 3 (31745) Diagnoses Chest pain R07.9 CPT Codes EKG - CPT: 63219-[id number], Complete ([id number])
[2024-05-03 14:56] VITALS: BP 116/62; PULSE 93; BMI 20.6
== END 2024-05-03 15:31 | disposition home or self-care (01) ==
PROVIDERS: PCP Registered Nurse; Visit Provider Nurse Practitioner
DX: R07.9 Chest pain, unspecified (principal)
CPT/HCPCS: 93010; 99213

== ENCOUNTER → 2024-05-03 14:53 | Outpatient (BNVA) | payer MEDICAID, SELFPAY | PROVIDERS: PCP Registered Nurse; Visit Provider Nurse Practitioner | DX: R07.9 Chest pain, unspecified (principal) | CPT/HCPCS: 93005; 99212 ==

== ENCOUNTER 2024-05-23 15:14 | Outpatient (AMB) | payer MEDICAID, SELFPAY ==
--- NOTE | 2024-05-23 15:16 | A.OFFVIS_ITS ---
Vital Signs 05/23/24 15:18 Height 4 ft 11 in Weight 113 lb 5.082 oz BMI 22.9 BP 104/59 L Blood Pressure Location Rt brachial Position Sitting Pulse 94 Intake Visit Reasons: dyspepsia Intake Note: Mary presents in the office as a new patient for Dyspepsia. CC: She states that she is having issues with her acid. She gets the reflux but denies any other GI symptoms. Coding Tech Required: No Allergies tree and shrub pollen Allergy (Mild, Verified 05/23/24 15:18) Unknown apple [APPLES] Allergy (Unknown, Verified 05/23/24 15:18) THROAT ITCHY peach [PEACHES] Allergy (Unknown, Verified 05/23/24 15:18) ITCHY THROAT HPI HPI dyspepsia: Details: 23-year-old female here for initial evaluation of dyspepsia. She is referred by [facility]. PMX Mood disorder/panic attacks Obesity Genital herpes Dysmenorrhea Next plain and control * SURGICAL HISTORY [place] teeth extraction * ALLERGIES NKDA-allergic to trees apples and peaches * [facility] LABS: Laboratory Tests 02/01/24 03/19/24 06:50 01:19 WBC 9.0 Hgb 13.4 Hct 39.8 Plt Count 289 Estimated GFR > 60 Total Bilirubin 0.4 AST 20 ALT 11 Alkaline Phosphatase [address] ABDOMEN AND PELVIS 06/11/21 FINDINGS: There are scattered respiratory motion artifact in the abdomen and upper pelvis. LUNG BASES: The visualized lung bases are unremarkable. LIVER, GALLBLADDER, AND BILIARY TREE: The liver is normal in size, shape, and attenuation. No focal hepatic lesion or biliary ductal dilatation is present. The gallbladder is unremarkable with no evidence of radiopaque gallstones, gallbladder wall thickening, or obvious pericholecystic inflammatory changes. PANCREAS: Pancreatic duct is upper limits of normal within the pancreatic head. Suspect possible divisum duct arrangement. The pancreas is normal in size and contour and attenuation. There is no peripancreatic inflammatory changes. SPLEEN: Unremarkable. ADRENAL GLANDS: Unremarkable. KIDNEYS AND URETERS: The kidneys are normal in size, shape, and attenuation. No hydronephrosis, hydroureter, or calculi seen. No perinephric stranding. BLADDER: Unremarkable. GASTROINTESTINAL TRACT: There is no bowel obstruction or focal inflammatory changes in the bowel or mesentery. Moderate stool is present in the right colon. The appendix is not seen with certainty. There are no inflammatory changes seen around the cecum or terminal ileum. There is no pneumatosis or free air. No ascites or fluid collection. ABDOMINAL WALL: No significant hernia is appreciated. LYMPH NODES: No lymphadenopathy VASCULAR: Unremarkable. PELVIC VISCERA: Incidental dominant follicle left ovary and right ovary, fall from approximately 1.5 cm. Uterus unremarkable. No ascites. OSSEOUS STRUCTURES: Unremarkable. CT/CT abdomen pelvis w con IMPRESSION: 1. No bowel obstruction or focal inflammatory changes in bowel or mesentery. 2. No adnexal mass or ascites. 3. No biliary ductal dilatation or hydronephrosis. 4. Exam degraded by patient respiratory motion artifact. HIDA SCAN 04/19/22 FINDINGS: There is good concentration of activity in the liver by 5 minutes post injection. Biliary activity is visualized by 10 minutes. The gallbladder is well visualized by 20 minutes. Small bowel is well visualized by 77 minutes. At 60 minutes post Mebrofenin injection, 8 ounces of Ensure-plus Brand was administered orally and an additional 60 minutes of images were obtained. There is good emptying of the gallbladder following ingestion of the fatty meal. At the end of the study there is good clearance of activity from the liver and visualization of diffuse small bowel activity. The calculated gallbladder ejection fraction is 44% (normal gallbladder ejection fraction using Ensure supplement orally is greater than 33%). NM/NM hepatobiliary w pharm IMPRESSION: Visualization of the gallbladder is evidence of a patent cystic duct and strong evidence against the diagnosis of acute cholecystitis. The common bile duct is patent. Gallbladder emptying and ejection fraction are normal. Liver function appears normal. TODAY'S VISIT Onset 4 years ago with vomiting of bile acid - she thought it was r/t her drinking and smoking and [facility] stopped all of this but she still has it. When she is very anxious it will activate my bile and she will have burning in her upper throat and she loses her voice. This was happening 5-10 times a year. She was given medications, starting with omeprazole but this make he feel worse. Then pantoprazole and it didn't sit well with my other medications and now she is on famotidine and this is working some what. BUT she still gets some sore throat and hoarse voice, but not as bad as it used to be. She says she had an HP stool test at [facility] - I will try to get that result. No known FHX of similar problems. She has a long hx of CIC, not moving her bowels fro a couple of week at a time, now she does every couple of days. Most of the time her stool is normal formed, except if she has lactose intolerant. She has frequent bloating and her stomach will get very hard. This happens every day until she moves her bowel. ? if sufficient bowel motility. When she has a severe episode with vomiting she has fecal incontinence of diarrhea. No food allergy testing. She tries to eat healthfully not much meat only pork, but like veggies and fruits and she avoids soda and junk food except on her menses. SHE IS TRYING TO GET . PLAN; increase famotidine to 40mg bid, trial of bently for diarrheal response and general hyperactivity of GI system during flairs. COnsider ? [place] etc. Get HP testing from [facility]. ROV 4 weeks. [facility] Medical History (Updated 05/23/24 @ 16:18 by ALEC Lara) COVID-19 vaccine series completed GERD (gastroesophageal reflux disease) Depression Herpes COVID-19 virus infection Surgical History [place] teeth extracted Family History Mother Cancer of unknown origin Social History Are you a primary health care technician to a significant other at home: No Do you presently have visiting nurse or other home services: No Alcohol intake: never Patient Tobacco Use Status: Never used Tobacco Substance Use Type: Marijuana Female Reproductive History Menstrual Age of Menarche: 12 Review of Systems Const Denies fatigue, Denies fever(s), Denies night sweats, Denies poor appetite and Denies weight loss ENT Reports Normal hearing present, Denies dental pain, Denies dysphagia, Denies hearing loss, Denies mouth pain, Denies odynophagia, Denies throat swelling, Denies tongue swelling and Reports other (Dentition adequate) Card Reports no additional complaints Resp Reports no additional complaints GI Details: Denies abdominal pain, Denies melena, Reports bloating, Denies hematochezia, Reports constipation, Denies GI cramping, Denies dysphagia, Denies excessive flatus, Denies early satiety, Reports heartburn, Denies diarrhea, Denies nausea, Denies odynophagia, Reports vomiting and Denies hematemesis Skin/Breast Denies pruritus, Denies lesions, Denies rash and Denies jaundice Neuro Reports Normal hearing present and Denies Abnormal speech present Endo Denies fatigue Aller/Immun Denies throat swelling and Denies tongue swelling Physical Exam Vital Signs: Last Vital Signs Pulse 94 05/23/24 15:18 BP 104/59 L 05/23/24 15:18 BMI result Body Mass Index 22.9 Const General: cooperative, no acute distress, well developed and well groomed Nutritional Appearance: average body habitus and well nourished Orientation/consciousness: oriented to person, oriented to place and oriented to time Limitations: No language barrier HEENT Head: Yes normocephalic and Yes atraumatic Eyes General: appearance normal, both eyes and all related structures Pupils: Equal, round and reactive pupils present Neck Neck: Yes normal visual inspection and Yes no lymphadenopathy Thyroid: Thyroid normal Resp Effort & Inspection: normal respiratory effort and able to speak in complete sentences Auscultation: clear to auscultation bilaterally Cardio Rate: regular rate Rhythm: regular rhythm Heart sounds: Normal, physiologic split S2 sound present Peripheral pulses: radial pulses present and posterior tibial pulses present GI Inspection: No distended and No Abdominal panniculus present Palpation (GI): Soft to palpation, nontender, no guarding, not rigid and No hepatosplenomegaly present Percussion: Yes normal to percussion Auscultation: normal bowel sounds Rectal Exam - Female: deferred Skin General skin exam: no rashes or lesions noted, turgor normal, skin not dry, no jaundice, No spider nevi and no striae Rashes: no rashes Nails: normal Neuro General: oriented to person, oriented to place and oriented to time Cranial nerves: Yes Equal, round and reactive pupils present and Yes Normal hearing present Speech: No Abnormal speech present Extrem General: Yes normal to inspection, No clubbing, No cyanosis and No edema Psych Appearance: grossly normal and well kempt Mental Status: mental status grossly normal Speech and movement: Normal speech and movement present Affect: normal affect Attitude: cooperative Thought process: Normal thought process present and not confabulating Thought content: Normal thought content present Insight: Limited insight present (Psych) Judgement: Limited judgement present (Psych) Results Reviewed Results Reviewed: Laboratory Tests 02/01/24 03/19/24 06:50 01:19 WBC 9.0 Hgb 13.4 Hct 39.8 Plt Count 289 Estimated GFR > 60 Total Bilirubin 0.4 AST 20 ALT 11 Alkaline Phosphatase [address] ABDOMEN AND PELVIS 06/11/21 FINDINGS: There are scattered respiratory motion artifact in the abdomen and upper pelvis. LUNG BASES: The visualized lung bases are unremarkable. LIVER, GALLBLADDER, AND BILIARY TREE: The liver is normal in size, shape, and attenuation. No focal hepatic lesion or biliary ductal dilatation is present. The gallbladder is unremarkable with no evidence of radiopaque gallstones, gallbladder wall thickening, or obvious pericholecystic inflammatory changes. PANCREAS: Pancreatic duct is upper limits of normal within the pancreatic head. Suspect possible divisum duct arrangement. The pancreas is normal in size and contour and attenuation. There is no peripancreatic inflammatory changes. SPLEEN: Unremarkable. ADRENAL GLANDS: Unremarkable. KIDNEYS AND URETERS: The kidneys are normal in size, shape, and attenuation. No hydronephrosis, hydroureter, or calculi seen. No perinephric stranding. BLADDER: Unremarkable. GASTROINTESTINAL TRACT: There is no bowel obstruction or focal inflammatory changes in the bowel or mesentery. Moderate stool is present in the right colon. The appendix is not seen with certainty. There are no inflammatory changes seen around the cecum or terminal ileum. There is no pneumatosis or free air. No ascites or fluid collection. ABDOMINAL WALL: No significant hernia is appreciated. LYMPH NODES: No lymphadenopathy VASCULAR: Unremarkable. PELVIC VISCERA: Incidental dominant follicle left ovary and right ovary, fall from approximately 1.5 cm. Uterus unremarkable. No ascites. OSSEOUS STRUCTURES: Unremarkable. CT/CT abdomen pelvis w con IMPRESSION: 1. No bowel obstruction or focal inflammatory changes in bowel or mesentery. 2. No adnexal mass or ascites. 3. No biliary ductal dilatation or hydronephrosis. 4. Exam degraded by patient respiratory motion artifact. HIDA SCAN 04/19/22 FINDINGS: There is good concentration of activity in the liver by 5 minutes post injection. Biliary activity is visualized by 10 minutes. The gallbladder is well visualized by 20 minutes. Small bowel is well visualized by 77 minutes. At 60 minutes post Mebrofenin injection, 8 ounces of Ensure-plus Brand was administered orally and an additional 60 minutes of images were obtained. There is good emptying of the gallbladder following ingestion of the fatty meal. At the end of the study there is good clearance of activity from the liver and visualization of diffuse small bowel activity. The calculated gallbladder ejection fraction is 44% (normal gallbladder ejection fraction using Ensure supplement orally is greater than 33%). NM/NM hepatobiliary w pharm IMPRESSION: Visualization of the gallbladder is evidence of a patent cystic duct and strong evidence against the diagnosis of acute cholecystitis. The common bile duct is patent. Gallbladder emptying and ejection fraction are normal. Liver function appears normal. Assessment & Plan Assessment & Plan (1) GERD (gastroesophageal reflux disease): Code(s): K21.9 - Gastro-esophageal reflux disease without esophagitis Category: Medical (2) Irritable bowel syndrome with both constipation and diarrhea: Code(s): K58.2 - Mixed irritable bowel syndrome Category: Medical (3) GERD (gastroesophageal reflux disease): Code(s): K21.9 - Gastro-esophageal reflux disease without esophagitis Category: Medical (4) Irritable bowel syndrome with both constipation and diarrhea: Code(s): K58.2 - Mixed irritable bowel syndrome Category: Medical (5) Nausea and vomiting: Code(s): R11.2 - Nausea with vomiting, unspecified Category: Medical Plan Onset 4 years ago with vomiting of bile acid - she thought it was r/t her drinking and smoking and [facility] stopped all of this but she still has it. When she is very anxious it will activate my bile and she will have burning in her upper throat and she loses her voice. This was happening 5-10 times a year. She was given medications, starting with omeprazole but this make he feel worse. Then pantoprazole and it didn't sit well with my other medications and now she is on famotidine and this is working some what. BUT she still gets some sore throat and hoarse voice, but not as bad as it used to be. She says she had an HP stool test at [facility] - I will try to get that result. No known FHX of similar problems. She has a long hx of CIC, not moving her bowels fro a couple of week at a time, now she does every couple of days. Most of the time her stool is normal formed, except if she has lactose intolerant. She has frequent bloating and her stomach will get very hard. This happens every day until she moves her bowel. ? if sufficient bowel motility. When she has a severe episode with vomiting she has fecal incontinence of diarrhea. No food allergy testing. She tries to eat healthfully not much meat only pork, but like veggies and fruits and she avoids soda and junk food except on her menses. SHE IS TRYING TO GET . PLAN; increase famotidine to 40mg bid, trial of bently for diarrheal response and general hyperactivity of GI system during flairs. COnsider ? [place] etc. Get HP testing from [facility]. ROV 4 weeks. Orders: Orders Rast Allergen 05/23/24 K58.2 - Mixed irritable bowel syndrome, K21.9 - Gastro- esophageal reflux disease without esophagitis Transglutaminase Ab IgG 05/23/24 K58.2 - Mixed irritable bowel syndrome, K21.9 - Gastro-esophageal reflux disease without esophagitis Ur Preg Test 05/23/24 R11.2 - Nausea with vomiting, unspecified [place] barium swallow 05/23/24 K58.2 - Mixed irritable bowel syndrome Transglutaminase IgA 05/23/24 K58.2 - Mixed irritable bowel syndrome, K21.9 - Gastro-esophageal reflux disease without esophagitis Medications: New famotidine (Pepcid) 40 mg PO BID 60 tabs 3RF K21.9 - Gastro-esophageal reflux disease without esophagitis dicyclomine 20 mg PO QID 120 tabs 1RF 30 days Coding Level of Care Code New Pt Level 3 (71212) Diagnoses GERD (gastroesophageal reflux disease) K21.9 Irritable bowel syndrome with both constipation and diarrhea K58.2 Nausea and vomiting R11.2
[2024-05-23 15:18] VITALS: BP 104/59; PULSE 94; BMI 22.9
== END 2024-05-23 16:19 | disposition home or self-care (01) ==
PROVIDERS: PCP Registered Nurse; Visit Provider Nurse Practitioner
DX: K21.9 Gastro-esophageal reflux disease without esophagitis (principal); K58.2 Mixed irritable bowel syndrome; R11.2 Nausea with vomiting, unspecified
CPT/HCPCS: 99203

== ENCOUNTER → 2024-05-23 15:14 | Outpatient (BNVA) | payer MEDICAID, SELFPAY | PROVIDERS: PCP Registered Nurse; Visit Provider Nurse Practitioner | DX: R10.13 Epigastric pain (principal); K21.9 Gastro-esophageal reflux disease without esophagitis; K58.2 Mixed irritable bowel syndrome; R11.2 Nausea with vomiting, unspecified | CPT/HCPCS: 99212 ==

== ENCOUNTER → 2024-06-15 07:51 | Outpatient (REF) | payer MEDICAID, SELFPAY ==
--- NOTE | 2024-06-15 07:54 | CA_ITS ---
Acquisition Time: 2024-06-15 08:44:13 Total Exercise Time: 00:08:42 Test Indications: CP Medications: SEE H Protocol: TIMOTHY Max HR: 169 BPM 85% of Pred: 198 BPM Max BP: 110/064 mmHG Max Work Load: 10.1 METS Exercise stress test exercise 8 min 42 sec of Timothy protocol 85% MPHR, with 2/10 CHEST PRESSURE AT BASELINE. 5/10 at peak, mild SOB, without arrhythmias, with normotensive response to exercise, without EKG changes. Chest pain resolved immediately in recovery. Test reviewed with Dr. Mchugh Referred By: Jeimy Garcia Overread By: Jeimy Garcia
--- NOTE | 2024-06-15 07:54 | CA_ITS ---
Transthoracic Echocardiogram Patient (Last, First, Middle): Mary Mariscal C Gender: Female Date of : 2000 Age: 23 Procedure Date: 06/15/2024 Procedure Type: Transthoracic Echocardiogram Location: OP Height: 149. cm Weight: 52.16 kg BSA: 1.45 m2 Heart Rate: 75 bpm BP: 100 / 65 mmHg Oyster Preparer: ISABEL Referring MD: Jeimy Garcia [employer]AFF [employer]BER Outside Cutter: Marlo Mchugh MD Symptoms: R07.9 - Chest pain, unspecified Study Quality: Fair ECG Rhythm: Sinus Conclusions: - Normal study Findings Left Ventricle Normal left ventricular size, thickness, and systolic function. The visually estimated ejection fraction is between 60-65%. Diastolic function is normal for age. Right Ventricle Normal right ventricular cavity size and systolic function. Atria Both atria are normal in size. There is no evidence of interatrial shunt. Aortic Valve Normal aortic valve structure and function. There is no aortic valve stenosis. There is no aortic valve regurgitation. Mitral Valve Normal mitral valve structure and function. There is trace mitral valve regurgitation. There is no mitral valve stenosis. Pulmonic Valve The pulmonic valve is likely normal. Tricuspid Valve Normal tricuspid valve structure. There is trace tricuspid valve regurgitation. The right ventricular systolic pressure is normal. Normal right atrial pressure. There is no evidence of pulmonary hypertension. Great Vessels All visible segments of the aorta are normal in size. The pulmonary artery was not well visualized. Venous The inferior vena cava is normal in size and collapses greater than 50% with inspiration. Pericardium/Pleural There is no evidence of pericardial effusion. Prior Study Comparison No prior study available for comparison. Measurements 2D Linear Measurements IVSd: 0.69 0.6-0.9/0.6-1.0 cm LVIDd: 3.92 3.9-5.3/4.2-5.9 cm LVIDd Index: 2.70 2.4-3.2/2.2-3.1 cm/m2 LVIDs: 2.27 2.0-3.6 cm LVPWd: 0.64 0.7-1.1 cm LA Diam: 2.50 2.7-3.8/3.0-4.0 cm LAIDs Index: 1.72 1.5-2.3 cm/m2 LV Mass: 88.28 67-162/88-224 g LV Mass Index: 60.88 43-95/49-115 g/m2 LVOT Diam: 1.80 3.0+(-)1.3 cm 2D Systolic Function EF 4C: 61.90 >55% EF 2C: 54.00 >55% EF BiP: 59.30 >55% Mitral Valve MV Pk E: 0.82 MV PK A: 0.52 MV Decel Time: 163.00 E/A: 1.60 E'Lateral: 15.60 E'Medial: 12.50 E/E' Med: 6.60 E/E' Lat: 5.30 PHT: 48.00 MVA PHT: 4.58 Decel [place]: 5.05 Aortic Valve AoV Pk Sj: 1.03 AoV Mn Sj: 0.79 AoV VTI: 0.22 AoV Pk Grad: 4.00 Aov Mn Grad: 3.00 KLAUDIA Cont.VTI: 1.98 LVOT LVOT Pk Sj: 0.89 LVOT Mn Sj: 0.64 LVOT VTI: 0.17 LVOT Pk Grad: 3.00 LVOT Mn Grad: 2.00 LVOT Diam: 1.80 LVOT Area: 2.54 Diastolic Function MV Pk E: 0.82 MV Pk A: 0.52 E/A: 1.60 E'Medial: 12.50 E/E' Med: 6.60 E' Laterial: 15.60 E/E' Lat: 5.30 Right Ventricle TAPSE (mm): 19.00 TVS' Sj: 11.30 Tricuspid Valve TR Pk Sj: 1.29 TR Pk Grad: 7.00 RA Press: 3.00 RVSP: 10.00 Great Vessels Aorta Sinus of Valsalva: 2.50 2.0-3.5 cm Ao Asc: 2.80 2.1-3.4 cm Pulmonary Valve PV Pk Sj: 0.90 Peak PV Grad: 3.00 Updated in Other Vendor System with Status of Final Marlo Mchugh MD electronically signed on 06/16/2024 2:16:16 PM with status of Final
== END ==
LOC: HO.CARD 07:51
PROVIDERS: PCP Registered Nurse; Visit Provider Nurse Practitioner
DX: R07.9 Chest pain, unspecified (principal)
CPT/HCPCS: 93017; 93306

== ENCOUNTER → 2024-06-15 07:54 | Outpatient (BNV) | payer MEDICAID, SELFPAY | PROVIDERS: PCP Registered Nurse; Visit Provider Internal Medicine Cardiovascular Disease | DX: R07.9 Chest pain, unspecified (principal) | CPT/HCPCS: 93016; 93018; 93350 ==

== ENCOUNTER 2024-06-15 09:13 | Outpatient (REF) | payer MEDICAID, SELFPAY ==
[2024-06-15 10:20] LABS: UPreg QC Valid YES; Urine Pregnancy NEGATIVE (NEGATIVE)
[2024-06-18 21:24] LABS: Transglutaminase Ab IgG 1.2 U/mL; Transglutaminase IgA <1.0 U/mL
== END 2024-06-15 09:14 | disposition home or self-care (01) ==
LOC: HO.LAB 09:13
PROVIDERS: PCP Registered Nurse; Visit Provider Nurse Practitioner
DX: K58.2 Mixed irritable bowel syndrome (principal); K21.9 Gastro-esophageal reflux disease without esophagitis; R11.2 Nausea with vomiting, unspecified
CPT/HCPCS: 36415; 81025; 86003; 86364

== ENCOUNTER 2024-07-24 10:44 | Emergency (ER) | payer MEDICAID, SELFPAY ==
--- NOTE | ~2024-07-24 | US_ITS ---
EXAMINATION: US OBSTETRICAL ULTRASOUND CLINICAL INFORMATION: Abdominal pain and cramping in patient. COMPARISON: None available. LMP: 07/03/2024. Gestational age by maternal dates is 4 weeks 3 days Estimated date of delivery by maternal dates is 03/30/2025. TECHNIQUE: Transabdominal and transvaginal imaging FINDINGS: 2 mm anechoic structure identified within the endometrium, possibly early gestational sac. This correlates to estimated gestational age of 4 weeks 5 days, ELISE equals 03/28/2025. No visible yolk sac, embryo/fetus nor cardiac activity. MATERNAL ADNEXA: The right maternal ovary measures 3.6 x 1.6 x 3.0 cm. 2.1 x 1.7 x 1.8 cm probable corpus luteum cyst. The left maternal ovary measures 2.9 x 0.9 x 2.0cm. There is no significant maternal adnexal mass. No maternal pelvic ascites. US/US OB <= 14 weeks fetus IMPRESSION: Question intrauterine gestational sac correlating with 4 week 5 day gestational age. No identifiable pole, yolk sac or heart rate at this time. Short-term sonographic follow-up recommended to assess what may be early viable gestation. Electronically signed by: Evangelina Avendaño MD 07/24/2024 01:20 PM EDT
[2024-07-24 11:03] VITALS: BP 118/73; PULSE 108; RESP 18; TEMP 37.3; O2SAT 100; BMI 23.6
[2024-07-24 11:26] LABS: MANUAL DIFF FLAG NO
[2024-07-24 11:28] LABS: Basophils Percent Auto 0.3 % (0-2); Eosinophils Percent Auto 0.3 % (0-4); Hemoglobin 13.3 g/dl (12.0-16.0); Imm Gran Abs Auto 0.04 X10*3/uL (0.00-0.03); Imm Gran Pct Auto 0.4 % (0.0-0.4); Lymphocytes Absolute Auto 1.9 X10*3/uL (1.2-4.9); Lymphocytes Percent Auto 19.8 % (20-40); Mean Corpuscular HGB Conc 34.1 g/dl (31.0-35.0); Mean Corpuscular Hemoglobin 29.4 pg (27.0-33.0); Mean Corpuscular Volume 86.3 fL (80.0-98.0); Monocytes Absolute Auto 0.7 X10*3/uL (0.1-1.2); Monocytes Percent Auto 7.6 % (2-11); Neutrophils Absolute Auto 6.7 x10*3/uL (2.0-8.3); Neutrophils Percent Auto 71.6 % (45-73); Platelet Count 280 X10*3/uL (160-400); Red Blood Count 4.52 X10*6/uL (4.20-5.50); Red Cell Distribution Width 12.8 % (11.0-16.0); White Blood Count 9.4 X10*3/uL (4.8-10.8)
[2024-07-24 11:30] LABS: Appearance Urine Clear; Color Urine Yellow; Glucose Urine UA Negative (Negative); Leukocyte Esterase Urine Negative (Negative); Nitrite Urine Negative (Negative); PH 5.5 (5.0-9.0); Urine Blood Negative (Negative); Urine Ketones Negative (Negative); Urine Protein Negative (Neg-Trace)
--- NOTE | 2024-07-24 11:38 | ED_ITS ---
HPI - Abdominal Pain General Chief Complaint: Abdominal Pain Stated Complaint: - abd cramping Time Seen by Provider: 07/24/24 11:38 Source: patient Mode of arrival: ambulatory Limitations: no limitations History of Present Illness ED Provider: Lele Pena PA-C HPI narrative: 24 yo female with history of irritable bowel syndrome w/ constipation and diarrhea, anxiety, who presents to the ER for evaluation of lower abdominal cramping that started intermittent 1.5 weeks ago but has been more constant the last couple of days. She tested positive for at home 4 days ago. She denies any vaginal bleeding or vaginal discharge. Her last menstrual period was June 23. She has never been before. She denies any nausea or vomiting. No fever or chills. MD elicited complaint: abdominal pain Pertinent past history: other (IBS) Onset (ago): day(s) Pain Consistency: constant Location: suprapubic and pelvis Severity: moderate Quality: cramping Radiation: none Migration to: no migration Exacerbating factors: nothing Relieving factors: nothing Associated symptoms: denies other symptoms Related Data Date of Last Menstrual Period: 06/23/24 Patient : Yes Home Medications ?Medication ?Instructions ?Recorded ?Confirmed escitalopram oxalate 5 mg tablet mg PO 05/03/24 05/03/24 hydroxyzine HCl 25 mg tablet 25 mg PO QID 05/03/24 05/03/24 trazodone 50 mg tablet 50 mg PO DAILY 05/03/24 05/03/24 Previous Rx's ?Medication ?Instructions ?Recorded dicyclomine 20 mg tablet 20 mg PO QID 30 days #120 tabs 05/23/24 famotidine 40 mg tablet (Pepcid) 40 mg PO BID #60 tabs 05/23/24 Allergies Allergy/AdvReac Type Severity Reaction Status Date / Time tree and shrub pollen Allergy Mild Unknown Verified 07/24/24 11:04 apple [APPLES] Allergy Unknown THROAT Verified 07/24/24 11:04 ITCHY peach [PEACHES] Allergy Unknown ITCHY Verified 07/24/24 11:04 THROAT Review of Systems Review of Systems Yes all other systems are reviewed and are negative PMFSH Past Medical History Medical History (Updated 07/24/24 @ 13:45 by NATALIYA Walker) COVID-19 vaccine series completed GERD (gastroesophageal reflux disease) Depression Herpes COVID-19 virus infection Surgical History [place] teeth extracted Date of Last Menstrual Period: 06/23/24 Family History Family History Mother Cancer of unknown origin Social History Social History Are you a primary skin care consultant to a significant other at home: No Do you presently have visiting nurse or other home services: No Alcohol intake: never Patient Tobacco Use Status: Never used Tobacco Substance Use Type: Marijuana Advance Directives: No Advance Directives Information Provided: No Physical Exam ED Vital Signs: Vital Signs - 24 hr 07/24/24 11:03 07/24/24 13:31 07/24/24 13:32 Temperature 99.1 F 98.0 F 98.0 F Pulse Rate 108 H 101 H 101 H Respiratory Rate 18 18 18 Blood Pressure 118/73 121/76 121/76 Pulse Oximetry 100 97 97 Oxygen Delivery Method Room Air Room Air Room Air BMI result Body Mass Index 23.6 Appearance: Alert. Oriented X3. No acute distress. Head: normocephalic, atraumatic. Eyes: Pupils equal, round and reactive to light. ENT: Pharynx normal. No tonsillar swelling or exudate. Neck: Normal inspection. Neck supple. CVS: Normal heart rate and rhythm. Pulses normal. Respiratory: No respiratory distress. Breath sounds normal. Abdomen: Soft and nontender. +BS x4 pelvic deferred Skin: Skin warm and dry. Normal skin color. Normal skin turgor. No rashes. Extremities: No lower extremity edema. No joint swelling. Neuro/psych: Oriented X 3. No motor deficit. No sensory deficit. CN II-XII intact. Normal speech and cognition. Medical Decision Making Medical Decision Making MDM Narrative: 24-year-old female currently in the early stages of , unknown LMP who presents to the ER for evaluation of lower abdominal cramping without any vaginal bleeding. Beta hCG is almost 1000. She is not anemic. Her physical exam is reassuring, nontender. No vaginal discharge or bleeding. She is interested in medical , counseled the that is offered here at the hospital but she can [facility]. Ultrasound is showing possible gestational sac but no pole or yolk sac. [facility]. Stable for discharge home. Return precautions were discussed. Differential Diagnosis Differential Diagnoses: The differential diagnosis associated with the presentation includes Threatened , ectopic , early stages of a normal , UTI, STI Lab Data MDM Lab Attestation statement: I reviewed the patient's lab results. Normal CBC, no anemia, leukocytosis 07/24/24 11:21 07/24/24 11:21 Labs: Lab Results 07/24/24 Range/Units 11:21 WBC 9.4 (4.8-10.8) X10*3/uL RBC 4.52 (4.20-5.50) X10*6/uL Hgb 13.3 (12.0-16.0) g/dl Hct 39.0 (37.0-47.0) % MCV 86.3 (80.0-98.0) fL MCH 29.4 (27.0-33.0) pg MCHC 34.1 (31.0-35.0) g/dl RDW 12.8 (11.0-16.0) % Plt Count 280 (160-400) X10*3/uL MPV 10.0 (9.4-12.3) fL Immature Gran % (Auto) 0.4 (0.0-0.4) % Neut % (Auto) 71.6 (45-73) % Lymph % (Auto) 19.8 L (20-40) % Eddy % (Auto) 7.6 (2-11) % Eos % (Auto) 0.3 (0-4) % Baso % (Auto) 0.3 (0-2) % Lymph # (Auto) 1.9 (1.2-4.9) X10*3/uL Eddy # (Auto) 0.7 (0.1-1.2) X10*3/uL Eos # (Auto) 0.0 (0.0-0.4) X10*3/uL Baso # (Auto) 0.0 (0.0-0.2) X10*3/uL Abs Immat Gran (auto) 0.04 H (0.00-0.03) X10*3/uL Absolute Neuts (auto) 6.7 (2.0-8.3) x10*3/uL Absolute Nucleated RBC 0.000 (0.0-0.012) X10*3/uL Nucleated RBC % (auto) 0.0 (0.0-0.2) /100WBC Sodium 137 (135-145) mmol/L Potassium 3.4 (3.3-5.1) mmol/L Chloride 106 (96-108) mmol/L Carbon Dioxide 24 (22-29) mmol/L Anion Gap 10 L (12-20) BUN 9 (9-16) mg/dL Creatinine 0.85 (0.5-1.4) mg/dL Estim Creat Clear Calc 76.5 Estimated GFR > 60 Random Glucose 86 (60-115) mg/dL Calcium 9.2 (8.4-10.2) mg/dL Magnesium 1.7 (1.6-2.6) mg/dL Total Bilirubin 0.4 (0.0-1.0) mg/dL Direct Bilirubin 0.2 (0.0-0.5) mg/dL AST 16 (5-31) U/L ALT 10 (0-31) U/L Alkaline Phosphatase 62 (39-117) U/L Total Protein 8.0 (6.5-8.0) g/dL Albumin 4.3 (3.5-5.0) g/dL Beta HCG, Quant 987 mIU/mL Urine Color Yellow Urine Appearance Clear Urine pH 5.5 (5.0-9.0) Ur Specific [place] 1.020 (1.005-1.025) Urine Protein Negative (Neg-Trace) mg/dL Urine Glucose (UA) Negative (Negative) mg/dL Urine Ketones Negative (Negative) mg/dL Urine Blood Negative (Negative) Urine Nitrite Negative (Negative) Ur Leukocyte Esterase Negative (Negative) Independent Interpretation I performed an independent interpretation of an: Ultrasound Interpretation: Possible gestational sac, no pole or yolk sac seen Radiology Impression Discussion of test interpretation with radiology: I have reviewed the radiologist's reading. Radiologist Impression: US/US OB <= 14 weeks fetus IMPRESSION: Question intrauterine gestational sac correlating with 4 week 5 day gestational age. No identifiable pole, yolk sac or heart rate at this time. Short-term sonographic follow-up recommended to assess what may be early viable gestation. External Record Review External record reviewed: Outpatient record, Prior outpatient labs and Prior outpatient radiology Prescription Management I considered prescription management with: Pain Medication and Antibiotic Chronic Conditions Patient?s care impacted by: Other (IBS) Critical Care Time Critical Care Time Critical Care Time: No Discharge Plan Discharge Clinical Impression: Patient Disposition: Home, Self-Care Instructions: (ED) Additional Instructions: Your in the early stages of . Her hormone was elevated at 987. US/US OB <= 14 weeks fetus IMPRESSION: Question intrauterine gestational sac correlating with 4 week 5 day gestational age. No identifiable pole, yolk sac or heart rate at this time. Short-term sonographic follow-up recommended to assess what may be early viable gestation. We do not do medical abortions here at [facility]. If this is something or interested in, recommend following [facility] with [facility]. There is an office in [place]. Call [phone] If you develop new or worsening symptoms call 911 or come back to the ER for further evaluation. Prescriptions: No Action famotidine [Pepcid] 40 mg tablet 40 mg PO BID Qty: 60 3RF dicyclomine 20 mg tablet 20 mg PO QID 30 Days Qty: 120 1RF escitalopram oxalate 5 mg tablet PO hydroxyzine HCl 25 mg tablet 25 mg PO QID trazodone 50 mg tablet 50 mg PO DAILY Interventions: ED Discharge Assessment Last Done: 07/24/24 13:32 Discharge Date/Time: 07/24/24 13:32 Print Language: [place]
[2024-07-24 11:50] LABS: Alanine Aminotransferase 10 U/L (0-31); Albumin Level 4.3 g/dL (3.5-5.0); Alkaline Phosphatase 62 U/L (39-117); Anion Gap 10 (12-20); Aspartate Amino Transferase 16 U/L (5-31); Bilirubin Direct 0.2 mg/dL (0.0-0.5); Bilirubin Total 0.4 mg/dL (0.0-1.0); Blood Urea Nitrogen 9 mg/dL (9-16); Calcium 9.2 mg/dL (8.4-10.2); Carbon Dioxide 24 mmol/L (22-29); Chloride 106 mmol/L (96-108); Creatinine Clr Calc Pharmacy 76.5; Estimated Glomerular Filt Rate > 60; Glucose Random 86 mg/dL (60-115); Magnesium 1.7 mg/dL (1.6-2.6); Potassium 3.4 mmol/L (3.3-5.1); Sodium 137 mmol/L (135-145)
[2024-07-24 11:54] LABS: HCG Quantitative 987 mIU/mL
[2024-07-24 13:31] VITALS: BP 121/76; PULSE 101; RESP 18; TEMP 36.7; O2SAT 97
[2024-07-24 13:32] VITALS: BP 121/76; PULSE 101; RESP 18; TEMP 36.7; O2SAT 97
== END 2024-07-24 13:32 | disposition home or self-care (01) ==
PROVIDERS: Physician Assistant; Emergency Provider Emergency Medicine; PCP Registered Nurse
DX: O26.892 Other specified pregnancy related conditions, second trimester (principal); O26.92 Pregnancy related conditions, unspecified, second trimester; Z3A.14 14 weeks gestation of pregnancy; R10.2 Pelvic and perineal pain; Z79.899 Other long term (current) drug therapy
CPT/HCPCS: 36415; 76801; 80048; 80076; 81003; 83735; 84702; 85025; 99284

== ENCOUNTER 2024-07-27 15:12 | Outpatient (REF) | payer MEDICAID, SELFPAY ==
[2024-07-27 16:49] LABS: HCG Quantitative 2860 mIU/mL
== END 2024-07-27 15:13 | disposition home or self-care (01) ==
LOC: HO.HHCL 15:12
PROVIDERS: Visit Provider Registered Nurse
DX: Z34.91 Encounter for supervision of normal pregnancy, unspecified, first trimester (principal); Z3A.01 Less than 8 weeks gestation of pregnancy
CPT/HCPCS: 36415; 84702

== ENCOUNTER 2024-07-29 02:11 | Emergency (ER) | payer MEDICAID, SELFPAY ==
[2024-07-29 02:17] VITALS: BP 120/70; PULSE 88; RESP 16; TEMP 36.9; O2SAT 98; BMI 24.2
[2024-07-29 02:46] VITALS: BP 123/68; PULSE 92; RESP 17; TEMP 36.6; O2SAT 99
[2024-07-29 03:57] LABS: MANUAL DIFF FLAG NO
[2024-07-29 03:59] LABS: Basophils Percent Auto 0.1 % (0-2); Eosinophils Percent Auto 0.1 % (0-4); Hematocrit 36.9 % (37.0-47.0); Hemoglobin 12.7 g/dl (12.0-16.0); Imm Gran Abs Auto 0.05 X10*3/uL (0.00-0.03); Imm Gran Pct Auto 0.4 % (0.0-0.4); Lymphocytes Absolute Auto 1.8 X10*3/uL (1.2-4.9); Lymphocytes Percent Auto 13.1 % (20-40); Mean Corpuscular HGB Conc 34.4 g/dl (31.0-35.0); Mean Corpuscular Hemoglobin 29.3 pg (27.0-33.0); Mean Platelet Volume 10.2 fL (9.4-12.3); Monocytes Absolute Auto 0.9 X10*3/uL (0.1-1.2); Monocytes Percent Auto 6.4 % (2-11); Neutrophils Absolute Auto 11.2 x10*3/uL (2.0-8.3); Neutrophils Percent Auto 79.9 % (45-73); Platelet Count 280 X10*3/uL (160-400); Red Blood Count 4.34 X10*6/uL (4.20-5.50); Red Cell Distribution Width 12.7 % (11.0-16.0)
[2024-07-29] MEDS: 0.9 % Sodium Chloride 1,000 ML 500 ML IVCONT (03:59)
[2024-07-29] MEDS: ondansetron HCL 4 MG/2 ML VIAL IVPUSH (04:00)
[2024-07-29 04:24] LABS: Anion Gap 12 (12-20); Blood Urea Nitrogen 9 mg/dL (9-16); Calcium 9.7 mg/dL (8.4-10.2); Carbon Dioxide 20 mmol/L (22-29); Chloride 108 mmol/L (96-108); Creatinine Clr Calc Pharmacy 80.2; Estimated Glomerular Filt Rate > 60; Glucose Random 103 mg/dL (60-115); Potassium 3.8 mmol/L (3.3-5.1); Sodium 136 mmol/L (135-145)
[2024-07-29 04:25] LABS: HCG Quantitative 4423 mIU/mL
--- NOTE | 2024-07-29 05:05 | ED_ITS ---
HPI - General Adult General Chief complaint: General Medical Stated complaint: n/v, preg, hasn't drank or eaten Time Seen by Provider: 07/29/24 03:33 Source: patient Mode of arrival: ambulatory Limitations: no limitations History of Present Illness ED Provider: Dr. Hansen HPI narrative: This is the second visit in a week for this patient with early . She states she is weak and nauseated with cramps no bleeding. Her HCG has doubled appropriately. Related Data Home Medications ?Medication ?Instructions ?Recorded ?Confirmed escitalopram oxalate 5 mg tablet mg PO 05/03/24 05/03/24 hydroxyzine HCl 25 mg tablet 25 mg PO QID 05/03/24 05/03/24 trazodone 50 mg tablet 50 mg PO DAILY 05/03/24 05/03/24 Previous Rx's ?Medication ?Instructions ?Recorded dicyclomine 20 mg tablet 20 mg PO QID 30 days #120 tabs 05/23/24 famotidine 40 mg tablet (Pepcid) 40 mg PO BID #60 tabs 05/23/24 ondansetron 4 mg disintegrating 4 mg PO Q8H 4 days #12 tabs 07/29/24 tablet Allergies Allergy/AdvReac Type Severity Reaction Status Date / Time tree and shrub pollen Allergy Mild Unknown Verified 07/29/24 02:22 apple [APPLES] Allergy Unknown THROAT Verified 07/29/24 02:22 ITCHY peach [PEACHES] Allergy Unknown ITCHY Verified 07/29/24 02:22 THROAT Review of Systems 2 Review of Systems: Yes all other systems are reviewed and are negative Neurologic: Denies Sensory deficit (Neuro) PMFSH Past Medical History Medical History COVID-19 vaccine series completed GERD (gastroesophageal reflux disease) Depression Herpes COVID-19 virus infection Surgical History [place] teeth extracted Family History Family History Mother Cancer of unknown origin Social History Social History Are you a primary healthcare technician to a significant other at home: No Do you presently have visiting nurse or other home services: No Alcohol intake: never Patient Tobacco Use Status: Never used Tobacco Smoked in Last 30 Days: No Use of substances other than those prescribed or required for medical reasons: No Substance Use Type: Marijuana Advance Directives: No Advance Directives Information Provided: No Do you have a plan to hurt others: No Plan Patient : Yes Physical Exam ED Vital Signs: Vital Signs - 24 hr 07/29/24 02:17 07/29/24 02:46 Temperature 98.5 F 97.9 F Pulse Rate 88 92 Respiratory Rate 16 17 Blood Pressure 120/70 123/68 Pulse Oximetry 98 99 Oxygen Delivery Method Room Air Room Air BMI result Body Mass Index 24.2 Const Other: female anxious General: healthy appearing Nutritional Appearance: average body habitus Orientation/consciousness: oriented to person and patient oriented x3 Limitations: no limitations HENMT Head: Yes normal to inspection Ears: external ears normal General nose exam: Normal external nose present Mouth: Normal oral and palatal mucosa present and oropharynx normal Throat: Yes posterior oropharynx normal Eyes General: appearance normal, both eyes and all related structures Neck Neck: Yes normal visual inspection Chest Chest palpation & inspection: normal inspection of the chest Resp Auscultation: clear to auscultation bilaterally Cardio Jugular venous distension: no JVD Rate: regular rate Rhythm: regular rhythm Heart sounds: S1 normal heart sound present and S2 normal heart sound present GI Inspection: Yes normal to inspection Palpation (GI): Soft to palpation, nontender and No hepatosplenomegaly present Auscultation: normal bowel sounds General: Yes no CVA tenderness Back/Spine/Pelvis Back: no CVA tenderness Skin General skin exam: no rashes or lesions noted Neuro General: oriented to person and patient oriented x3 Cranial nerves: Yes CN's II-XII intact bilaterally Motor exam (neuro): 5/5 motor strength present throughout Sensory Exam: No Sensory deficit (Neuro) Extrem General: Yes normal to inspection Psych Appearance: grossly normal Course Reevaluation(s) Reevaluation #1: HCG doubled appropriately, patient had prior US that showed IUP. Will dc on zofran Time: 05:08 Medications Administered Generic Name Dose Route Start Last Admin Trade Name Freq PRN Reason Stop Dose Admin Sodium Chloride 1,000 mls @ 500 mls/hr 07/29/24 03:45 07/29/24 03:59 Ns IVCONT 07/29/24 05:44 500 mls/hr .Q2H JANEY Administration Discontinued Medications Generic Name Dose Route Start Last Admin Trade Name Freq PRN Reason Stop Dose Admin Ondansetron HCl 4 mg 07/29/24 03:32 07/29/24 04:00 Ondansetron Hcl 4 Mg/2 Ml Vial IVPUSH 07/29/24 03:33 4 mg ONCE ONE Administration Medical Decision Making Differential Diagnosis Differential Diagnoses: The differential diagnosis associated with the presentation includes (threatened miscarriage, round ligament strain, hyperemesis) Lab Data 07/29/24 03:52 07/29/24 03:52 Labs: Lab Results 07/29/24 Range/Units 03:52 WBC 14.0 H (4.8-10.8) X10*3/uL RBC 4.34 (4.20-5.50) X10*6/uL Hgb 12.7 (12.0-16.0) g/dl Hct 36.9 L (37.0-47.0) % MCV 85.0 (80.0-98.0) fL MCH 29.3 (27.0-33.0) pg MCHC 34.4 (31.0-35.0) g/dl RDW 12.7 (11.0-16.0) % Plt Count 280 (160-400) X10*3/uL MPV 10.2 (9.4-12.3) fL Immature Gran % (Auto) 0.4 (0.0-0.4) % Neut % (Auto) 79.9 H (45-73) % Lymph % (Auto) 13.1 L (20-40) % [place] % (Auto) 6.4 (2-11) % Eos % (Auto) 0.1 (0-4) % Baso % (Auto) 0.1 (0-2) % Lymph # (Auto) 1.8 (1.2-4.9) X10*3/uL [place] # (Auto) 0.9 (0.1-1.2) X10*3/uL Eos # (Auto) 0.0 (0.0-0.4) X10*3/uL Baso # (Auto) 0.0 (0.0-0.2) X10*3/uL Abs Immat Gran (auto) 0.05 H (0.00-0.03) X10*3/uL Absolute Neuts (auto) 11.2 H (2.0-8.3) x10*3/uL Absolute Nucleated RBC 0.000 (0.0-0.012) X10*3/uL Nucleated RBC % (auto) 0.0 (0.0-0.2) /100WBC Sodium 136 (135-145) mmol/L Potassium 3.8 (3.3-5.1) mmol/L Chloride 108 (96-108) mmol/L Carbon Dioxide 20 L (22-29) mmol/L Anion Gap 12 (12-20) BUN 9 (9-16) mg/dL Creatinine 0.82 (0.5-1.4) mg/dL Estim Creat Clear Calc 80.2 Estimated GFR > 60 Random Glucose 103 (60-115) mg/dL Calcium 9.7 (8.4-10.2) mg/dL Beta HCG, Quant 4423 mIU/mL Independent Interpretation I performed an independent interpretation of an: Ultrasound (bedside US shows IUP) Independent Historian Clinical information obtained from an independent historian. History obtained from or confirmed by: Parent Social Determinants Patient?s care significantly limited by Social Determinants of Health including: Problems related to primary support group Discharge Plan Discharge Clinical Impression: Nausea and vomiting, Patient Disposition: Home, Self-Care Instructions: (ED), Acute Nausea and Vomiting (ED) Prescriptions: New ondansetron 4 mg tablet,disintegrating 4 mg PO Q8H 4 Days Qty: 12 0RF No Action famotidine [Pepcid] 40 mg tablet 40 mg PO BID Qty: 60 3RF dicyclomine 20 mg tablet 20 mg PO QID 30 Days Qty: 120 1RF escitalopram oxalate 5 mg tablet PO hydroxyzine HCl 25 mg tablet 25 mg PO QID trazodone 50 mg tablet 50 mg PO DAILY Referrals: Cornelius Quijano MD [Physician] - 3 days Print Language: Lao
[2024-07-29 05:16] VITALS: BP 105/66; PULSE 85; RESP 17; TEMP 37.2; O2SAT 98
[2024-07-29 05:25] VITALS: BP 105/66; PULSE 85; RESP 17; TEMP 37.2; O2SAT 98
[2024-07-29 05:27] LABS: Appearance Urine Clear; Color Urine Yellow; Glucose Urine UA Negative (Negative); Leukocyte Esterase Urine Negative (Negative); Nitrite Urine Negative (Negative); PH 6.5 (5.0-9.0); Urine Blood Negative (Negative); Urine Ketones Negative (Negative); Urine Protein Negative (Neg-Trace)
== END 2024-07-29 05:26 | disposition home or self-care (01) ==
PROVIDERS: Emergency Provider Emergency Medicine; PCP Registered Nurse
DX: O21.0 Mild hyperemesis gravidarum (principal); Z3A.01 Less than 8 weeks gestation of pregnancy; Z79.899 Other long term (current) drug therapy
CPT/HCPCS: 36415; 80048; 81003; 84702; 85025; 96361; 96374; 99284; J2405

== ENCOUNTER 2024-08-05 04:27 | Emergency (ER) | payer MEDICAID, SELFPAY ==
[2024-08-05] VITALS (7 sets, daily range): BP systolic 94–125; BP diastolic 54–95; PULSE 81–110; RESP 16–22; TEMP 36.8–37.1; O2SAT 98–100; BMI 24.8
--- NOTE | ~2024-08-05 | US_ITS ---
EXAMINATION: US OBSTETRICAL ULTRASOUND CLINICAL INFORMATION: Nausea and vomiting with cramping and lower abdominal pain. Positive beta hCG of 27,073 (08/05/2024), 4423 (07/29/2024), 2860 (07/27/2024), and 987 (07/24/2024).. COMPARISON: Obstetrical ultrasound dated 07/24/2024. TECHNIQUE: Transabdominal and transvaginal pelvic ultrasound. A transvaginal study was performed in addition to the transabdominal study which did not yield an adequate examination of the uterus and ovaries and fetus due to superimposed distended gas-filled loops of bowel. FINDINGS: Based on the patient's last menstrual period of 06/23/2024, a 6 week 1 day gestation is expected with estimated date of delivery of 03/30/2025. Uterus: The uterus is anteverted and anteflexed. There is an intrauterine gestational sac identified with a single live intrauterine gestation with a positive heartbeat of 112-117 bpm. The pole has a crown-rump length of 0.3 cm which equals 6 weeks and 0 days. A normal-appearing yolk sac is identified. The decidual reaction around the sac is normal. No evidence of subchorionic hemorrhage. Ovaries: The ovaries bilaterally are visualized and appear normal, with the right ovary measuring 2.4 x 1.4 x 1.6 cm (2.8 mL volume) and the left ovary measuring 2.8 x 1.4 x 2.6 cm (5.1 mL volume). Spectral Doppler analysis of the arterial and venous flow is not evaluated inboth ovaries. Other: No adnexal mass or free fluid collection seen. US/US OB <= 14 weeks fetus IMPRESSION: 1. Single live intrauterine gestation is identified with positive heartbeat of 112 to 117 bpm. 2. Based on the dating parameters obtained by measurement of crown-rump length, a 6 week 0 day gestation is seen with estimated date of delivery of 03/30/2025. Electronically signed by: Grazyna Wheeler MD 08/05/2024 09:14 AM EDT
[2024-08-05 04:50] LABS: MANUAL DIFF FLAG NO
[2024-08-05 04:51] LABS: Basophils Percent Auto 0.2 % (0-2); Eosinophils Percent Auto 0.1 % (0-4); Hematocrit 36.2 % (37.0-47.0); Hemoglobin 12.5 g/dl (12.0-16.0); Imm Gran Abs Auto 0.04 X10*3/uL (0.00-0.03); Imm Gran Pct Auto 0.3 % (0.0-0.4); Lymphocytes Absolute Auto 2.1 X10*3/uL (1.2-4.9); Lymphocytes Percent Auto 15.5 % (20-40); Mean Corpuscular HGB Conc 34.5 g/dl (31.0-35.0); Mean Corpuscular Hemoglobin 29.6 pg (27.0-33.0); Mean Corpuscular Volume 85.6 fL (80.0-98.0); Monocytes Absolute Auto 0.8 X10*3/uL (0.1-1.2); Monocytes Percent Auto 5.9 % (2-11); Neutrophils Absolute Auto 10.7 x10*3/uL (2.0-8.3); Platelet Count 301 X10*3/uL (160-400); Red Blood Count 4.23 X10*6/uL (4.20-5.50); Red Cell Distribution Width 12.6 % (11.0-16.0); White Blood Count 13.7 X10*3/uL (4.8-10.8)
[2024-08-05 05:09] LABS: Alanine Aminotransferase 10 U/L (0-31); Albumin Level 4.3 g/dL (3.5-5.0); Alkaline Phosphatase 61 U/L (39-117); Anion Gap 13 (12-20); Aspartate Amino Transferase 16 U/L (5-31); Bilirubin Total 0.2 mg/dL (0.0-1.0); Blood Urea Nitrogen 8 mg/dL (9-16); Calcium 9.5 mg/dL (8.4-10.2); Carbon Dioxide 21 mmol/L (22-29); Chloride 106 mmol/L (96-108); Creatinine Clr Calc Pharmacy 84.2; Estimated Glomerular Filt Rate > 60; Glucose Random 103 mg/dL (60-115); Lipase 15 U/L (8-78); Potassium 3.9 mmol/L (3.3-5.1); Sodium 136 mmol/L (135-145); Total Protein 7.9 g/dL (6.5-8.0)
[2024-08-05 05:42] LABS: HCG Quantitative 27073 mIU/mL
--- NOTE | 2024-08-05 06:42 | ED_ITS ---
HPI - Abdominal Pain General Chief Complaint: Abdominal Pain Stated Complaint: N/V ABDOMINAL PAIN Time Seen by Provider: 08/05/24 06:35 Source: patient Mode of arrival: ambulatory Limitations: no limitations History of Present Illness ED Provider: UBALDO CUEVAS PA-C HPI narrative: 24 year old female , approximately 6 weeks confirmed via home test, presents to the ED today with nausea, vomiting, and bilateral lower abdominal cramping x weeks, worsening last night night. Reports symptoms have been present her entire however worsening last night, causing her anxiety that there may be something wrong with the baby. She believes her LMP was 06/23/24 however cannot completely recall. She has not established care with an OBGYN as of yet. Denies fever, chills, flank pain, dysuria, hematuria, vaginal discharge, vaginal bleeding, diarrhea, constipation. Denies concern for STI and does not wish to be tested at this time. Related Data Home Medications ?Medication ?Instructions ?Recorded ?Confirmed escitalopram oxalate 5 mg tablet mg PO 05/03/24 05/03/24 hydroxyzine HCl 25 mg tablet 25 mg PO QID 05/03/24 05/03/24 trazodone 50 mg tablet 50 mg PO DAILY 05/03/24 05/03/24 Previous Rx's ?Medication ?Instructions ?Recorded dicyclomine 20 mg tablet 20 mg PO QID 30 days #120 tabs 05/23/24 famotidine 40 mg tablet (Pepcid) 40 mg PO BID #60 tabs 05/23/24 ondansetron 4 mg disintegrating 4 mg PO Q8H 4 days #12 tabs 07/29/24 tablet ondansetron 4 mg disintegrating 4 mg PO DAILY PRN nausea and 08/05/24 tablet vomiting 5 days #7 tabs vit no.95-ferrous 1 tab PO DAILY #30 tabs 08/05/24 fumarate 28 mg-folic acid 800 mcg tablet ( Formula) Allergies Allergy/AdvReac Type Severity Reaction Status Date / Time tree and shrub pollen Allergy Mild Unknown Verified 08/05/24 04:37 apple [APPLES] Allergy Unknown THROAT Verified 08/05/24 04:37 ITCHY peach [PEACHES] Allergy Unknown ITCHY Verified 08/05/24 04:37 THROAT Review of Systems Review of Systems Constitutional: No fever, chills, fatigue, night sweats, weight changes ENT/Mouth: No ear pain, hearing loss, nasal congestion, sinus pain, rhinorrhea, sore throat Eyes: No eye pain, swelling, redness, vision changes, discharge Cardio: No chest pain, palpitations, CARNES, orthopnea, peripheral edema Pulm: No SOB, cough, sputum, wheezing, dyspnea, hemoptysis GI: No hematemesis, diarrhea, constipation, hematochezia, melena, +abd pain, +N/V : No irregular bleeding, dysuria, frequency, urgency, hesitancy, hematuria, flank pain, urinary flow changes, urinary incontinence or retention MSK: No back pain, neck pain, joint pain, myalgias Skin: No lesions, rashes Neuro: No weakness, numbness, paresthesias, LOC, dizziness, headache Psych: No anxiety/panic, depression, SI/HI, AH/VH All other systems reviewed and are negative. [facility] Past Medical History Attestation statement: The following information was validated with the patient. Source: old records reviewed and nursing notes reviewed Medical History COVID-19 vaccine series completed GERD (gastroesophageal reflux disease) Depression Herpes COVID-19 virus infection Surgical History [place] teeth extracted Family History Family History Mother Cancer of unknown origin Social History Social History Are you a primary healthcare consultant to a significant other at home: No Do you presently have visiting nurse or other home services: No Alcohol intake: never Patient Tobacco Use Status: Never used Tobacco Smoked in Last 30 Days: No Use of substances other than those prescribed or required for medical reasons: No Substance Use Type: Marijuana Advance Directives: No Advance Directives Information Provided: No Patient : Yes Physical Exam ED Vital Signs: Vital Signs - 24 hr 08/05/24 04:33 08/05/24 04:34 08/05/24 06:43 Temperature 98.5 F 98.5 F 98.2 F Pulse Rate 81 81 110 H Respiratory Rate 20 19 22 H Blood Pressure 117/59 L 117/59 L 125/95 H Pulse Oximetry 100 100 98 Oxygen Delivery Method Room Air Room Air Room Air 08/05/24 07:53 08/05/24 10:06 08/05/24 11:04 Temperature 98.3 F 98.8 F Pulse Rate 89 85 90 Respiratory Rate 20 16 18 Blood Pressure 122/73 102/62 94/54 L Pulse Oximetry 98 99 98 Oxygen Delivery Method Room Air Room Air Room Air BMI result Body Mass Index 24.8 vital signs stable General: Well appearing, in no acute distress. Skin: Warm, dry, intact. No rashes or lesions. Head: Normocephalic, atraumatic. EENT: Hearing is intact b/l. Conjunctiva clear. PERRLA. Moist mucous membranes.? Neck: Supple without LAD Cardiac: Chest wall symmetric. RRR. Lungs: Normal respiratory effort without accessory muscle use. CTA bilaterally. .? Abdomen: soft, non distended, ttp of lower abd b/l, no rebound or guarding. normoactive bs x4. no CVAT b/l. Ext: Upper and lower extremities atraumatic, without tenderness, deformity, swelling or erythema Neuro: AOx3. Normal speech. Ambulating with steady gait. Psych: Appropriate mood and affect. Responds appropriately to questions. Course Course Course Narrative: 812 -- CBC with leukocytosis to 13.7 without left shift. Likely secondary to multiple episodes of vomiting this morning. Lower suspicion for infectious etiology. Chemistry without acute electrolyte abnormality requiring intervention. No ROHIT. Normal liver function. Lipase WNL at 15, pancreatitis unlikely. beta quant 05821. last beta quant obtained 1 wk ago 4423. UA pending. OB/ pelvic US ordered. > patient requesting something for anxiety. Will trial hydroxyzine. 1L IVF and zofran ordered. 1035 -- pelvic/Ob ultrasound showing single live intrauterine gestation with positive heartbeat measuring 112-117 beats per minute. Based on measurement of crown rump length, 6 week 0 day gestation is seen (consistent with hcg values) with estimated due date of 03/30/2025. UA without evidence of infection or blood. Patient declining STI evaluation. > on re-evaluation, patient reports improvement in symptoms with Zofran and Tylenol. Appears less anxious after receiving hydroxyzine. > discussed all workup results with patient. At this time I feel she is stable for discharge home as work up results are unremarkable. Will send her home with Zofran and OBGYN follow up. Referral provided. Patient has remained stable throughout ED visit today. Discussed worrisome signs and symptoms and when to return to the ED. All questions answered at this time. Patient is agreeable with disposition and stable for discharge. Medical Decision Making Medical Decision Making MDM Narrative: 24 year old female , approximately 6 weeks confirmed via home test, hx of GERD, IBS, anxiety presents to the ED today with nausea, vomiting, and bilateral lower abdominal cramping x weeks, worsening last night night. Vitals showing episode of tachycardia and tachypnea, secondary to anxiety attack while I was in the room examining patient. vitals otherwise wnl. She is nontoxic appearing, in NAD, however visibly anxious. abd is soft, ND/NT, without rebound or guarding. normoactive bs x4. no cvat b/l. pelvic exam deferred. Differential diagnosis includes includes UTI, IUP, ectopic . Lower suspicion for TOA, PID, and other infectious causes as patient has no constitutional symptoms of infection. Also includes pyelo, endometriosis, adenomyosis but these are less likely. Doubt appendicitis or other primary gastrointestinal process. Plan: labs, UA, pelvic US, pain and nausea control, fluid resuscitation, reassessment Differential Diagnosis Differential Diagnoses: The differential diagnosis associated with the presentation includes as above. Admission/Observation Consideration of admission/observation: Escalation of care including admission/observation considered Admission considered on presentation Lab Data MDM Lab Attestation statement: I reviewed the patient's lab results. As above 08/05/24 04:45 08/05/24 04:45 Labs: Lab Results 08/05/24 08/05/24 Range/Units 04:45 10:03 WBC 13.7 H (4.8-10.8) X10*3/uL RBC 4.23 (4.20-5.50) X10*6/uL Hgb 12.5 (12.0-16.0) g/dl Hct 36.2 L (37.0-47.0) % MCV 85.6 (80.0-98.0) fL MCH 29.6 (27.0-33.0) pg MCHC 34.5 (31.0-35.0) g/dl RDW 12.6 (11.0-16.0) % Plt Count 301 (160-400) X10*3/uL MPV 10.0 (9.4-12.3) fL Immature Gran % (Auto) 0.3 (0.0-0.4) % Neut % (Auto) 78.0 H (45-73) % Lymph % (Auto) 15.5 L (20-40) % [place] % (Auto) 5.9 (2-11) % Eos % (Auto) 0.1 (0-4) % Baso % (Auto) 0.2 (0-2) % Lymph # (Auto) 2.1 (1.2-4.9) X10*3/uL [place] # (Auto) 0.8 (0.1-1.2) X10*3/uL Eos # (Auto) 0.0 (0.0-0.4) X10*3/uL Baso # (Auto) 0.0 (0.0-0.2) X10*3/uL Abs Immat Gran (auto) 0.04 H (0.00-0.03) X10*3/uL Absolute Neuts (auto) 10.7 H (2.0-8.3) x10*3/uL Absolute Nucleated RBC 0.000 (0.0-0.012) X10*3/uL Nucleated RBC % (auto) 0.0 (0.0-0.2) /100WBC Sodium 136 (135-145) mmol/L Potassium 3.9 (3.3-5.1) mmol/L Chloride 106 (96-108) mmol/L Carbon Dioxide 21 L (22-29) mmol/L Anion Gap 13 (12-20) BUN 8 L (9-16) mg/dL Creatinine 0.79 (0.5-1.4) mg/dL Estim Creat Clear Calc 84.2 Estimated GFR > 60 Random Glucose 103 (60-115) mg/dL Calcium 9.5 (8.4-10.2) mg/dL Total Bilirubin 0.2 (0.0-1.0) mg/dL AST 16 (5-31) U/L ALT 10 (0-31) U/L Alkaline Phosphatase 61 (39-117) U/L Total Protein 7.9 (6.5-8.0) g/dL Albumin 4.3 (3.5-5.0) g/dL Lipase 15 (8-78) U/L Beta HCG, Quant 03960 mIU/mL Urine Color Yellow Urine Appearance Clear Urine pH 6.5 (5.0-9.0) Ur Specific [place] 1.015 (1.005-1.025) Urine Protein Negative (Neg-Trace) mg/dL Urine Glucose (UA) Negative (Negative) mg/dL Urine Ketones Trace (Negative) mg/dL Urine Blood Negative (Negative) Urine Nitrite Negative (Negative) Ur Leukocyte Esterase Negative (Negative) Independent Interpretation I performed an independent interpretation of an: Ultrasound Interpretation: Pelvic US showing IUP, agree with radiologist's interpretation. Radiology Impression Discussion of test interpretation with radiology: I have reviewed the radiologist's reading. Radiologist Impression: EXAMINATION: US OBSTETRICAL ULTRASOUND CLINICAL INFORMATION: Nausea and vomiting with cramping and lower abdominal pain. Positive beta hCG of 27,073 (08/05/2024), 4423 (07/29/2024), 2860 (07/27/2024), and 987 (07/24/2024).. COMPARISON: Obstetrical ultrasound dated 07/24/2024. TECHNIQUE: Transabdominal and transvaginal pelvic ultrasound. A transvaginal study was performed in addition to the transabdominal study which did not yield an adequate examination of the uterus and ovaries and fetus due to superimposed distended gas-filled loops of bowel. FINDINGS: Based on the patient's last menstrual period of 06/23/2024, a 6 week 1 day gestation is expected with estimated date of delivery of 03/30/2025. Uterus: The uterus is anteverted and anteflexed. There is an intrauterine gestational sac identified with a single live intrauterine gestation with a positive heartbeat of 112-117 bpm. The pole has a crown-rump length of 0.3 cm which equals 6 weeks and 0 days. A normal-appearing yolk sac is identified. The decidual reaction around the sac is normal. No evidence of subchorionic hemorrhage. Ovaries: The ovaries bilaterally are visualized and appear normal, with the right ovary measuring 2.4 x 1.4 x 1.6 cm (2.8 mL volume) and the left ovary measuring 2.8 x 1.4 x 2.6 cm (5.1 mL volume). Spectral Doppler analysis of the arterial and venous flow is not evaluated inboth ovaries. Other: No adnexal mass or free fluid collection seen. US/US OB <= 14 weeks fetus IMPRESSION: 1. Single live intrauterine gestation is identified with positive heartbeat of 112 to 117 bpm. 2. Based on the dating parameters obtained by measurement of crown-rump length, a 6 week 0 day gestation is seen with estimated date of delivery of 03/30/2025. Electronically signed by: Grazyna Wheeler MD 08/05/2024 09:14 AM EDT External Record Review External record reviewed: Inpatient record Prescription Management I considered prescription management with: Pain Medication and Other (zofran) Chronic Conditions Patient?s care impacted by: Other () Social Determinants Patient?s care significantly limited by Social Determinants of Health including: Other Social Determinant of Health Medications Administered Discontinued Medications Generic Name Dose Route Start Last Admin Trade Name Freq PRN Reason Stop Dose Admin Hydroxyzine HCl 25 mg 08/05/24 08:07 08/05/24 08:44 Hydroxyzine Hcl 25 Mg Tablet PO 08/05/24 08:08 25 mg ONCE ONE Administration Acetaminophen 1,000 mg in 100 mls @ 400 mls/hr 08/05/24 07:25 08/05/24 09:51 Ofirmev IV 08/05/24 07:39 Infused ONCE ONE Infusion Sodium Chloride 1,000 mls @ 999 mls/hr 08/05/24 07:30 08/05/24 09:01 Ns IV 08/05/24 08:30 Infused .Q1H1M JANEY Infusion Ondansetron HCl 4 mg 08/05/24 07:25 08/05/24 07:52 Ondansetron Hcl 4 Mg/2 Ml Vial IVPUSH 08/05/24 07:26 4 mg ONCE ONE Administration Critical Care Time Critical Care Time Critical Care Time: No Discharge Plan Discharge Clinical Impression: Abdominal pain during , Nausea and vomiting during Patient Disposition: Home, Self-Care Instructions: Nausea and Vomiting in (ED), Abdominal Pain in (ED) Additional Instructions: Your blood work today is reassuring. Your hormone shows normal elevation/ progression to 27,073. Your urine is negative for infection or blood. Your pelvic ultrasound shows an intrauterine with identifiable heart beat measuring 6 weeks gestation. Estimated due date is 03/30/25. Zofran is an antinausea medication that has been sent to your pharmacy for you to take as needed for nausea/vomiting. During , you may take Tylenol as needed for pain/discomfort at home. Please avoid NSAIDs such as ibuprofen as these are harmful and . I have also sent vitamins to your pharmacy for you to take throughout . You have been provided with a referral to an OBGYN. Please call them to establish care. they will not call you. Return with new or worsening symptoms. In the case of an emergency call 911. Prescriptions: New ondansetron 4 mg tablet,disintegrating 4 mg PO DAILY PRN (Reason: nausea and vomiting) 5 Days Qty: 7 0RF PNV cmb#95-ferrous fumarate-FA [ Formula] 28 mg iron- 800 mcg tablet 1 tab PO DAILY Qty: 30 0RF No Action ondansetron 4 mg tablet,disintegrating 4 mg PO Q8H 4 Days Qty: 12 0RF famotidine [Pepcid] 40 mg tablet 40 mg PO BID Qty: 60 3RF dicyclomine 20 mg tablet 20 mg PO QID 30 Days Qty: 120 1RF escitalopram oxalate 5 mg tablet PO hydroxyzine HCl 25 mg tablet 25 mg PO QID trazodone 50 mg tablet 50 mg PO DAILY Referrals: [facility] [Provider Group] - 3 days (6 wks ) Center,Count Includes [facility] [Primary Care Provider] - Interventions: ED Discharge Assessment Last Done: 08/05/24 11:04 Discharge Date/Time: 08/05/24 11:05 Print Language: Congolese
--- NOTE | 2024-08-05 07:00 | PC.NURSE ---
Report taken from Lacey Bravo RN
[2024-08-05] MEDS: Acetaminophen 1,000 MG/100 ML PIGGYBACK 400 MG IV (07:52)
[2024-08-05] MEDS: ondansetron HCL 4 MG/2 ML VIAL IVPUSH (07:52)
[2024-08-05] MEDS: 0.9 % Sodium Chloride 1,000 ML 999 ML IV (07:53)
--- NOTE | 2024-08-05 07:53 | PC.NURSE ---
Pt. medicated per MAR. VSS. Offers no complaints at this time. Call gonzalez within reach.
--- NOTE | 2024-08-05 07:59 | PC.NURSE ---
Pt. requesting something for anxiety. NATALIYA Miles notified.
[2024-08-05] MEDS: hydrOXYzine HCL 25 MG TABLET PO (08:44)
[2024-08-05 10:18] LABS: Appearance Urine Clear; Color Urine Yellow; Glucose Urine UA Negative (Negative); Leukocyte Esterase Urine Negative (Negative); Nitrite Urine Negative (Negative); PH 6.5 (5.0-9.0); Specific Gravity - Urine 1.015 (1.005-1.025); Urine Blood Negative (Negative); Urine Ketones Trace mg/dL (Negative); Urine Protein Negative (Neg-Trace)
== END 2024-08-05 11:05 | disposition home or self-care (01) ==
PROVIDERS: Emergency Provider Emergency Medicine Emergency Medical Services
DX: O21.0 Mild hyperemesis gravidarum (principal); R25.2 Cramp and spasm; Z3A.01 Less than 8 weeks gestation of pregnancy; Z79.899 Other long term (current) drug therapy
CPT/HCPCS: 36415; 76801; 80053; 81003; 83690; 84702; 85025; 96361; 96365; 96375; 99284; 99285; J0131; J2405

== ENCOUNTER 2024-10-13 22:41 | Emergency (ER) | payer MEDICAID, SELFPAY ==
[2024-10-13 22:49] VITALS: BP 112/76; PULSE 86; RESP 14; TEMP 36.6; O2SAT 100; BMI 23.4
[2024-10-14 00:17] LABS: Basophils Percent Auto 0.4 % (0-2); Eosinophils Absolute Auto 0.1 X10*3/uL (0.0-0.4); Hematocrit 38.8 % (37.0-47.0); Hemoglobin 13.1 g/dl (12.0-16.0); Imm Gran Abs Auto 0.01 X10*3/uL (0.00-0.03); Imm Gran Pct Auto 0.1 % (0.0-0.4); Lymphocytes Percent Auto 27.8 % (20-40); MANUAL DIFF FLAG NO; Mean Corpuscular HGB Conc 33.8 g/dl (31.0-35.0); Mean Corpuscular Hemoglobin 28.8 pg (27.0-33.0); Mean Corpuscular Volume 85.3 fL (80.0-98.0); Mean Platelet Volume 9.8 fL (9.4-12.3); Monocytes Absolute Auto 0.5 X10*3/uL (0.1-1.2); Monocytes Percent Auto 7.7 % (2-11); Neutrophils Absolute Auto 4.4 x10*3/uL (2.0-8.3); Platelet Count 339 X10*3/uL (160-400); Red Blood Count 4.55 X10*6/uL (4.20-5.50); Red Cell Distribution Width 12.5 % (11.0-16.0); White Blood Count 7.1 X10*3/uL (4.8-10.8)
[2024-10-14 00:40] LABS: Alanine Aminotransferase 11 U/L (0-31); Albumin Level 4.4 g/dL (3.5-5.0); Alkaline Phosphatase 78 U/L (39-117); Anion Gap 11 (12-20); Aspartate Amino Transferase 24 U/L (5-31); Bilirubin Total 0.3 mg/dL (0.0-1.0); Blood Urea Nitrogen 11 mg/dL (9-16); Calcium 9.4 mg/dL (8.4-10.2); Carbon Dioxide 25 mmol/L (22-29); Chloride 108 mmol/L (96-108); Creatinine Clr Calc Pharmacy 75.4; Estimated Glomerular Filt Rate > 60; Glucose Random 85 mg/dL (60-115); HCG Quantitative < 2 mIU/mL; Sodium 140 mmol/L (135-145); Total Protein 8.3 g/dL (6.5-8.0)
--- NOTE | 2024-10-14 01:47 | ED.ABDPAIN ---
HPI - Abdominal Pain General Chief Complaint: Abdominal Pain Stated Complaint: abd pain Time Seen by Provider: 10/14/24 01:45 Source: patient Mode of arrival: ambulatory Limitations: no limitations History of Present Illness ED Provider: HPI narrative: Lower abdominal discomfort wanted to be sure that she is not as she tested at home which was faintly positive patient had D&C 3 months ago and last menstrual period was 09/13 Related Data Home Medications ?Medication ?Instructions ?Recorded ?Confirmed escitalopram oxalate 5 mg tablet mg PO 05/03/24 05/03/24 hydroxyzine HCl 25 mg tablet 25 mg PO QID 05/03/24 05/03/24 trazodone 50 mg tablet 50 mg PO DAILY 05/03/24 05/03/24 Previous Rx's ?Medication ?Instructions ?Recorded dicyclomine 20 mg tablet 20 mg PO QID 30 days #120 tabs 05/23/24 ondansetron 4 mg disintegrating 4 mg PO Q8H 4 days #12 tabs 07/29/24 tablet ondansetron 4 mg disintegrating 4 mg PO DAILY PRN nausea and 08/05/24 tablet vomiting 5 days #7 tabs vit no.95-ferrous 1 tab PO DAILY #30 tabs 08/05/24 fumarate 28 mg-folic acid 800 mcg tablet ( Formula) famotidine 40 mg tablet 40 mg PO BID #180 tabs 08/21/24 Allergies Allergy/AdvReac Type Severity Reaction Status Date / Time tree and shrub pollen Allergy Mild Unknown Verified 10/13/24 22:53 apple [APPLES] Allergy Unknown THROAT Verified 10/13/24 22:53 ITCHY peach [PEACHES] Allergy Unknown ITCHY Verified 10/13/24 22:53 THROAT Review of Systems Review of Systems Yes all other systems are reviewed and are negative [facility] Past Medical History Medical History COVID-19 vaccine series completed GERD (gastroesophageal reflux disease) Depression Herpes COVID-19 virus infection Surgical History [place] teeth extracted Family History Family History Mother Cancer of unknown origin Social History Social History Are you a primary lead care manager to a significant other at home: No Do you presently have visiting nurse or other home services: No Alcohol intake: never Patient Tobacco Use Status: Never used Tobacco Smoked in Last 30 Days: No Use of substances other than those prescribed or required for medical reasons: No Substance Use Type: Marijuana Advance Directives: No Do you have a plan to hurt others: No Plan Physical Exam ED Vital Signs: Vital Signs - 24 hr 10/13/24 22:49 10/14/24 02:06 Temperature 97.8 F 97.8 F Pulse Rate 86 86 Respiratory Rate 14 14 Blood Pressure 112/76 112/76 Pulse Oximetry 100 100 Oxygen Delivery Method Room Air Room Air BMI result Body Mass Index 23.4 Appearance: Alert. Oriented X3. No acute distress. Eyes: PERRLA, No Nystagmus ENT: Pharynx normal. Oral Mucosa moist Neck: Normal inspection. Neck supple. CVS: Normal heart rate and rhythm. Pulses normal. Respiratory: No respiratory distress. Equal air entry bilateral, no wheezing/rales/rhonchi Abdomen: Soft and nontender. Bowel sounds are present, no mass palpable, no CVA tenderness Skin: Skin warm and dry. Normal skin color. Normal skin turgor. Extremities: No lower extremity edema. No calf tenderness Neuro: Oriented X 3. Medical Decision Making Lab Data MDM Lab Attestation statement: I reviewed the patient's lab results. 10/14/24 00:13 10/14/24 00:13 Labs: Lab Results 10/14/24 Range/Units 00:13 WBC 7.1 (4.8-10.8) X10*3/uL RBC 4.55 (4.20-5.50) X10*6/uL Hgb 13.1 (12.0-16.0) g/dl Hct 38.8 (37.0-47.0) % MCV 85.3 (80.0-98.0) fL MCH 28.8 (27.0-33.0) pg MCHC 33.8 (31.0-35.0) g/dl RDW 12.5 (11.0-16.0) % Plt Count 339 (160-400) X10*3/uL MPV 9.8 (9.4-12.3) fL Immature Gran % (Auto) 0.1 (0.0-0.4) % Neut % (Auto) 63.0 (45-73) % Lymph % (Auto) 27.8 (20-40) % [place] % (Auto) 7.7 (2-11) % Eos % (Auto) 1.0 (0-4) % Baso % (Auto) 0.4 (0-2) % Lymph # (Auto) 2.0 (1.2-4.9) X10*3/uL [place] # (Auto) 0.5 (0.1-1.2) X10*3/uL Eos # (Auto) 0.1 (0.0-0.4) X10*3/uL Baso # (Auto) 0.0 (0.0-0.2) X10*3/uL Abs Immat Gran (auto) 0.01 (0.00-0.03) X10*3/uL Absolute Neuts (auto) 4.4 (2.0-8.3) x10*3/uL Absolute Nucleated RBC 0.000 (0.0-0.012) X10*3/uL Nucleated RBC % (auto) 0.0 (0.0-0.2) /100WBC Sodium 140 (135-145) mmol/L Potassium 4.0 (3.3-5.1) mmol/L Chloride 108 (96-108) mmol/L Carbon Dioxide 25 (22-29) mmol/L Anion Gap 11 L (12-20) BUN 11 (9-16) mg/dL Creatinine 0.86 (0.5-1.4) mg/dL Estim Creat Clear Calc 75.4 Estimated GFR > 60 Random Glucose 85 (60-115) mg/dL Calcium 9.4 (8.4-10.2) mg/dL Total Bilirubin 0.3 (0.0-1.0) mg/dL AST 24 (5-31) U/L ALT 11 (0-31) U/L Alkaline Phosphatase 78 (39-117) U/L Total Protein 8.3 H (6.5-8.0) g/dL Albumin 4.4 (3.5-5.0) g/dL Beta HCG, Quant < 2 mIU/mL Discharge Plan Discharge Clinical Impression: Crampy pain associated with menses Patient Disposition: Home, Self-Care Instructions: Dysmenorrhea (ED) Additional Instructions: Likely your lower abdominal pain is from menstrual cramps Your blood test for is negative Prescriptions: No Action famotidine 40 mg tablet 40 mg PO BID Qty: 180 1RF ondansetron 4 mg tablet,disintegrating 4 mg PO Q8H 4 Days Qty: 12 0RF ondansetron 4 mg tablet,disintegrating 4 mg PO DAILY PRN (Reason: nausea and vomiting) 5 Days Qty: 7 0RF PNV cmb#95-ferrous fumarate-FA [ Formula] 28 mg iron- 800 mcg tablet 1 tab PO DAILY Qty: 30 0RF dicyclomine 20 mg tablet 20 mg PO QID 30 Days Qty: 120 1RF escitalopram oxalate 5 mg tablet PO hydroxyzine HCl 25 mg tablet 25 mg PO QID trazodone 50 mg tablet 50 mg PO DAILY Interventions: ED Discharge Assessment Last Done: 10/14/24 02:06 Discharge Date/Time: 10/14/24 02:07 Print Language: Indonesian
[2024-10-14 02:06] VITALS: BP 112/76; PULSE 86; RESP 14; TEMP 36.6; O2SAT 100
== END 2024-10-14 02:07 | disposition home or self-care (01) ==
PROVIDERS: Emergency Provider Internal Medicine
DX: R10.2 Pelvic and perineal pain (principal); N94.4 Primary dysmenorrhea; Z79.899 Other long term (current) drug therapy
CPT/HCPCS: 36415; 80053; 84702; 85025; 99283; 99284; 99285

== ENCOUNTER 2025-02-21 19:23 | Emergency (ER) | payer MEDICAID, SELFPAY ==
[2025-02-21 19:52] VITALS: BP 116/72; PULSE 79; RESP 14; TEMP 36.7; O2SAT 100; BMI 22.2
--- NOTE | 2025-02-21 20:06 | ED_ITS ---
HPI - Female Genitourinary General Chief complaint: Urogenital-Female Stated complaint: ? uti Time Seen by Provider: 02/21/25 23:38 Source: patient Limitations: no limitations History of Present Illness ED Provider: Radha Barrera PA-C HPI Narrative: 24-year-old female presents requesting testing for STDs. Patient states her current partner told her ?you should be tested for STDs?. He was not forthcoming about details. Patient denies dysuria, hematuria, abdominal pain, nausea, vomiting, vaginal discharge, genital lesions. Related Data Home Medications ?Medication ?Instructions ?Recorded ?Confirmed escitalopram oxalate 5 mg tablet mg PO 05/03/24 05/03/24 hydroxyzine HCl 25 mg tablet 25 mg PO QID 05/03/24 05/03/24 trazodone 50 mg tablet 50 mg PO DAILY 05/03/24 05/03/24 Previous Rx's ?Medication ?Instructions ?Recorded dicyclomine 20 mg tablet 20 mg PO QID 30 days #120 tabs 05/23/24 ondansetron 4 mg disintegrating 4 mg PO Q8H 4 days #12 tabs 07/29/24 tablet ondansetron 4 mg disintegrating 4 mg PO DAILY PRN nausea and 08/05/24 tablet vomiting 5 days #7 tabs vit no.95-ferrous 1 tab PO DAILY #30 tabs 08/05/24 fumarate 28 mg-folic acid 800 mcg tablet ( Formula) famotidine 40 mg tablet 40 mg PO BID #180 tabs 08/21/24 Allergies Allergy/AdvReac Type Severity Reaction Status Date / Time tree and shrub pollen Allergy Mild Unknown Verified 02/21/25 19:53 apple [APPLES] Allergy Unknown THROAT Verified 02/21/25 19:53 ITCHY peach [PEACHES] Allergy Unknown ITCHY Verified 02/21/25 19:53 THROAT Review of Systems Review of Systems: Yes all other systems are reviewed and are negative Constitutional: Constitutional: Denies fatigue and Denies fever(s) Cardiovascular: Cardiovascular: Denies chest pain Gastrointestinal: Gastrointestinal: Denies abdominal pain, Denies nausea and Denies vomiting Genitourinary: Genitourinary: Denies hematuria, Denies genital lesions, Denies dysuria, Denies pelvic pain, Denies vaginal discharge and Denies vaginal pruritus Endocrine: Endocrine: Denies fatigue PMFSH Past Medical History Attestation statement: The following information was validated with the patient. Medical History COVID-19 vaccine series completed GERD (gastroesophageal reflux disease) Depression Herpes COVID-19 virus infection Surgical History [place] teeth extracted Family History Family History Mother Cancer of unknown origin Social History Social History Are you a primary nurse care manager to a significant other at home: No Do you presently have visiting nurse or other home services: No Alcohol intake: never Patient Tobacco Use Status: Never used Tobacco Substance Use Type: Marijuana Advance Directives: No Advance Directives Information Provided: No Physical Exam Vital Signs: Vital Signs: Last Vital Signs Temp 98.1 F 02/21/25 19:52 Pulse 79 02/21/25 19:52 Resp 14 02/21/25 19:52 BP 116/72 02/21/25 19:52 Pulse Ox 100 02/21/25 19:52 O2 Del Method Room Air 02/21/25 19:52 BMI result Body Mass Index 22.2 Const: Other: Alert well-appearing Orientation/consciousness: patient oriented x3 Resp: Effort & Inspection: normal respiratory effort Cardio: Other: Normal peripheral perfusion : Other: Deferred given lack of symptoms Skin: Other: Warm dry no rash Neuro: General: patient oriented x3, gait normal, no focal motor deficits and CN's II-XI intact bilaterally Psych: Other: Cooperative Course Course Course Narrative: This is a rapid medical exam performed by Marshall Gutierrez NP: Additional HPI, ROS, PE not included below will be deferred to primary provider. Patient is a 24-year-old female presenting to emergency department requesting STI testing. States she received a phone call from a former partner stating that she should be checked. Complains of malodorous vaginal discharge, denies pain or bleeding. Plan: STI testing Medical Decision Making Medical Decision Making MDM Narrative: 24-year-old female presents requesting testing for STDs. Patient states her current partner told her ?you should be tested for STDs?. He was not forthcoming about details. Patient denies dysuria, hematuria, abdominal pain, nausea, vomiting, vaginal discharge, genital lesions. Problem: Exposure to STD History: Per patient I have considered the following differential diagnoses: Gonorrhea, chlamydia, herpes, syphilis, hepatitis, HIV, Plan: Patient was currently being screened for syphilis, GC chlamydia, hepatitis, HIV. All testing is pending. I discussed with the patient that she will be contacted by the facility if she requires treatment, given the lack of symptoms, she prefers to wait versus receive empiric treatment for all potential infections. Discharge Plan Discharge Clinical Impression: Encounter for assessment of STD exposure Patient Disposition: Home, Self-Care Additional Instructions: You are currently being tested for HIV, hepatitis-B and C, gonorrhea, chlamydia and syphilis. All testing is pending. You will be contacted by someone at the facility if you require treatment. Prescriptions: No Action famotidine 40 mg tablet 40 mg PO BID Qty: 180 1RF ondansetron 4 mg tablet,disintegrating 4 mg PO Q8H 4 Days Qty: 12 0RF ondansetron 4 mg tablet,disintegrating 4 mg PO DAILY PRN (Reason: nausea and vomiting) 5 Days Qty: 7 0RF PNV cmb#95-ferrous fumarate-FA [ Formula] 28 mg iron- 800 mcg tablet 1 tab PO DAILY Qty: 30 0RF dicyclomine 20 mg tablet 20 mg PO QID 30 Days Qty: 120 1RF escitalopram oxalate 5 mg tablet PO hydroxyzine HCl 25 mg tablet 25 mg PO QID trazodone 50 mg tablet 50 mg PO DAILY Print Language: Citizen Of [place]
[2025-02-22 00:53] VITALS: BP 116/72; PULSE 79; RESP 14; TEMP 36.7; O2SAT 100
[2025-02-22 07:49] LABS: Syphilis Screen Nonreactive (Nonreactive)
[2025-02-22 08:13] LABS: HBS Num1 28.34 mIU/mL (0-7.99); HBc Num1 0.16 S/CO (0.00-0.79); HBsAGNum1 0.35 S/CO (0.00-0.99); HIV AB/AG Nonreactive (Nonreactive); HIV Num 1 0.12 S/CO (0.00-0.99); Hepatitis B Core Antibody Nonreactive (Nonreactive); Hepatitis B Surface Antigen Negative (Negative); ~HepC Num1 0.17 S/CO (0.00-0.79); ~Hepatitis B Surface Antibody REACTIVE (Nonreactive); ~Hepatitis C Antibody Nonreactive (Nonreactive)
[2025-02-22 13:52] LABS: CT PCR NOT DETECTED (Not Detect.); NG PCR NOT DETECTED (Not Detect.)
== END 2025-02-22 00:53 | disposition home or self-care (01) ==
PROVIDERS: Registered Nurse Emergency; Emergency Provider Emergency Medicine
DX: Z20.2 Contact with and (suspected) exposure to infections with a predominantly sexual mode of transmission (principal)
CPT/HCPCS: 36415; 86704; 86706; 86780; 86803; 87340; 87389; 87491; 87591; 99282; 99283

== ENCOUNTER 2025-04-09 23:38 | Emergency (ER) | payer MEDICAID, SELFPAY ==
--- NOTE | ~2025-04-09 | US_ITS ---
CLINICAL HISTORY: pressure, RLQ pain, r o ectopic US OB transabdominal and transvaginal with Doppler Comparison: None Findings: Transabdominal scanning performed for overall anatomy. Transvaginal scanning performed for additional detail. Uterus measures 6.3 x 4.2 x 5.9 cm. There is a tiny cystic area within the endometrium possibly an early gestational sac, but nonspecific. Mean diameter of the tiny cyst is 2.2 mm which would correspond to an estimated gestational age of 4 weeks 5 days. There is no yolk sac or pole. Right ovary measures 2.8 x 2.3 x 3 cm. There is a 2 cm corpus luteal cyst in the right ovary. There is normal color Doppler and arterial/venous spectral tracings within the right ovary. Left ovary measures 3.2 x 1.3 x 2.4 cm. There is no left adnexal mass or fluid collection. There is normal color Doppler and arterial/venous spectral tracings within the left ovary. There is no free fluid in the pelvis. IMPRESSION: Tiny cystic area within the endometrium possibly an early gestational sac, but nonspecific. Follow-up pelvic ultrasound to confirm a viable intrauterine is recommended. This document has been electronically signed by: Kwaku Aguilera MD on 04/10/2025 03:34:07
[2025-04-09 23:47] VITALS: BP 120/73; PULSE 87; RESP 16; TEMP 36.7; O2SAT 97; BMI 21.2
--- OUTSIDE RECORDS SUMMARY | 2025-04-10 00:03 | XMS_ITS | Encounter Summary ---
Author Organization [employer] Address [address] [place] [address] Care Team Providers Care Oxygen Equipment Aide Name Role Phone [facility] Primary Care Provider [phone] Reason for Visit * Reason Onset Date Comments Med Refill 08/23/2024 Encounter Details Date Type Department Care Team ([facility] st Contact Info) Description 08/23/2024 Refill [facility] [address], [place] [phone] [facility] [address] [place], [place] [id number] Generalized anxiety disorder with panic attacks Social History Tobacco Use Types Packs/Day Years Used Date Smoking Tobacco: Never Smokeless Tobacco: Never Alcohol Use Standard Drinks/Week Comments Never 0 (1 standard drink = 0.6 oz pur e alcohol) Depression Answer Date Recorded Patient Health Questionnaire-9 Score 0 07/27/2024 Patient Health Questionnaire-9 Score 0 07/27/2024 Last PHQ-9: Questionnaire Data Not on file 0 07/27/2024 Housing Stability Answer Date Recorded What is your housing situation today? I have alea barron 08/23/[address] you li ve. Do you have problems with any of the following? None of the above 08/23/2023 Food Insecurity Answer Date Recorded Within the past 12 months, y ou worried that your food would run out before you got money to buy more: Never True 08/23/2023 Within the past 12 months,th e food you bought just didn't last and you didn't have enough money to get more: Never True Transportation Answer Date Recorded In the past 12 months, has l ack of transportation kept you from medical appts, meetings, work or from getting things needed for daily living? No 08/23/2023 Utilities Answer Date Recorded In the past 12 months, has t he electric, gas, oil or water company threatened to shut off services in your home? No 08/23/2023 Depression Answer Date Recorded Patient Health Questionnaire-2 Score 0 07/27/2024 Comments Yes Sex and Gender Information Value Date Recorded Sex Assigned at Female 09/06/2022 10:17 AM EDT Legal Sex Female 10:17 AM EDT Gender Identity Choose not to disclose 10:17 AM EDT Sexual Orientation Choose not to disclose 2021 10:17 AM EDT documented as of this encounter Plan of Treatment Not on file documented as of this encounter Visit Diagnoses Diagnosis Generalized anxiety disorder with panic attacks documented in this encounter Additional Health Concerns Assessment Noted Time PHQ-9 Depression Total Score: 0 07/27/20 24 2:34 PM EDT documented as of this encounter Care Teams Oxygen Equipment Aide Relationship Specialty Start Date End Date Rebekah Sanchez FNP [address] [place] [id number] PCP - General Family Medicine 07/05/22 documented as of this encounter
--- NOTE | 2025-04-10 01:04 | ED.ABDPAIN ---
HPI - Abdominal Pain General Chief Complaint: Abdominal Pain Stated Complaint: approx 5 weeks preg. abd pain Time Seen by Provider: 04/10/25 00:57 Source: patient Mode of arrival: ambulatory Limitations: no limitations History of Present Illness ED Provider: Dr. Beth Ace HPI narrative: Patient comes to the emergency room complaining of suprapubic pain, pelvic cramping, pressure worse on the right side. Patient states that at home she had 3 positive test, last menstrual period on March 10, 1 month ago. Patient denies any vaginal bleeding or spotting. Patient states that this is her 2nd . Patient states that her 1st resulted in an . Patient denies any URI symptoms, denies any nausea vomiting or diarrhea. No fever chills. Related Data Home Medications ?Medication ?Instructions ?Recorded ?Confirmed escitalopram oxalate 5 mg tablet mg PO 05/03/24 05/03/24 hydroxyzine HCl 25 mg tablet 25 mg PO QID 05/03/24 05/03/24 trazodone 50 mg tablet 50 mg PO DAILY 05/03/24 05/03/24 Previous Rx's ?Medication ?Instructions ?Recorded dicyclomine 20 mg tablet 20 mg PO QID 30 days #120 tabs 05/23/24 ondansetron 4 mg disintegrating 4 mg PO Q8H 4 days #12 tabs 07/29/24 tablet ondansetron 4 mg disintegrating 4 mg PO DAILY PRN nausea and 08/05/24 tablet vomiting 5 days #7 tabs vit no.95-ferrous 1 tab PO DAILY #30 tabs 08/05/24 fumarate 28 mg-folic acid 800 mcg tablet ( Formula) famotidine 40 mg tablet 40 mg PO BID #180 tabs 08/21/24 nitrofurantoin 100 mg PO Q12H 7 days #14 caps 04/10/25 monohydrate/macrocrystals 100 mg capsule (Macrobid) Allergies Allergy/AdvReac Type Severity Reaction Status Date / Time tree and shrub pollen Allergy Mild Unknown Verified 04/09/25 23:49 apple [APPLES] Allergy Unknown THROAT Verified 04/09/25 23:49 ITCHY peach [PEACHES] Allergy Unknown ITCHY Verified 04/09/25 23:49 THROAT Review of Systems Review of Systems Constitutional : No Weight loss, No Fever, No Chills, No Night Sweats, No Fatigue, No Malaise ENT/Mouth : No Hearing loss, No Ear Pain, No Nasal Congestion, No Sinus Pain, No Hoarseness, No sore throat, No Rhinorrhea, No Swallowing Difficulty Eyes: No Eye Pain, No Swelling, No Redness, No Foreign Body, No Discharge, No Vision Changes Cardiovascular : No Chest Pain, No SOB, No Dyspnea on Exertion, No Orthopnea, No Edema, No Palpitations Respiratory : No Cough, No Sputum, No Wheezing, No Smoke Exposure, No Dyspnea Gastrointestinal : No Nausea, No Vomiting, No Diarrhea, No Constipation, denies melena, complaining of suprapubic discomfort more on the right side, Genitourinary : Patient states she has a proximally 5 weeks of gestational age, home tests are positive, denies vaginal bleeding or spotting, No Dysuria, No Urinary Frequency, No Hematuria, No Urinary Incontinence, No Urgency, No Flank Pain, No Urinary Flow Changes, No Hesitancy Musculoskeletal : No joint pain, No Myalgias, No Joint Swelling Skin : No Skin Lesions, No rash Neuro : No Weakness, No Numbness, No Paresthesias, No Loss of Consciousness, No Dizziness, No Headache Psych : No Anxiety/Panic, No Depression, No SI/HI/AH/VH, No Social Issues, Heme/Lymph: No Bruising, No Bleeding,No Lymphadenopathy Endocrine : No Polyuria, No Polydipsia, No Temperature Intolerance PMFSH Past Medical History Medical History COVID-19 vaccine series completed GERD (gastroesophageal reflux disease) Depression Herpes COVID-19 virus infection Surgical History [place] teeth extracted Family History Family History Mother Cancer of unknown origin Social History Social History Are you a primary manager care to a significant other at home: No Do you presently have visiting nurse or other home services: No Alcohol intake: never Patient Tobacco Use Status: Never used Tobacco Substance Use Type: Marijuana Advance Directives: No Do you have a plan to hurt others: No Plan Patient : Yes Physical Exam ED Vital Signs: Vital Signs - 24 hr 04/09/25 23:47 Temperature 98.1 F Pulse Rate 87 Respiratory Rate 16 Blood Pressure 120/73 Pulse Oximetry 97 Oxygen Delivery Method Room Air BMI result Body Mass Index 21.2 Const Other: Appearance: Alert. Oriented X3. No acute distress. Eyes: Pupils equal, round and reactive to light. ENT: Pharynx normal. Neck: Normal inspection. Neck supple. No lymph nodes noted. No crepitus CVS: Normal heart rate and rhythm. Pulses normal. Normal S1 and S2 Respiratory: No respiratory distress. Breath sounds normal. No Wheezing. No rales Abdomen: Soft , mild discomfort to palpation in the suprapubic area, no rebound or guarding, negative Santamaria's sign, no pain at the McBurney's point. No rigidity. No distention. Skin: Skin warm and dry. Normal skin color. Normal skin turgor. Extremities: No lower extremity edema. No Lacerations. No Rash Neuro: Oriented X 3. No motor deficit. No sensory deficit. Moving all extremities. No slurred speech. CN 2 through 12 grossly intact Psych: calm, cooperative, normal affect Course Course Course Narrative: All of patient's labs pending If hCG is positive, we will proceed with an ultrasound to rule out ectopic Medical Decision Making Medical Decision Making MDM Narrative: My interpretation of labs: No significant abnormality in patient's hematology and chemistry, hCG sedative at 1099 I patient's urine is positive for trace leukocyte esterase and white blood cells and bacteria. Given that she is and has suprapubic pressure, we will go ahead and treat as UTI. First dose of Macrobid was given in the emergency room Differential Diagnosis Differential Diagnoses: The differential diagnosis associated with the presentation includes (Ectopic , ovarian cyst, UTI, miscarriage) Admission/Observation Consideration of admission/observation: Escalation of care including admission/observation considered (Given patient's symptoms, observation/transfer was considered) Lab Data [facility] Lab Attestation statement: I reviewed the patient's lab results. 04/10/25 01:28 04/10/25 01:28 Labs: Lab Results 04/10/25 Range/Units 01:28 WBC 10.4 (4.8-10.8) X10*3/uL RBC 4.28 (4.20-5.50) X10*6/uL Hgb 12.4 (12.0-16.0) g/dl Hct 35.8 L (37.0-47.0) % MCV 83.6 (80.0-98.0) fL MCH 29.0 (27.0-33.0) pg MCHC 34.6 (31.0-35.0) g/dl RDW 13.4 (11.0-16.0) % Plt Count 274 (160-400) X10*3/uL MPV 10.2 (9.4-12.3) fL Immature Gran % (Auto) 0.3 (0.0-0.4) % Neut % (Auto) 62.3 (45-73) % Lymph % (Auto) 27.7 (20-40) % [place] % (Auto) 8.8 (2-11) % Eos % (Auto) 0.7 (0-4) % Baso % (Auto) 0.2 (0-2) % Lymph # (Auto) 2.9 (1.2-4.9) X10*3/uL [place] # (Auto) 0.9 (0.1-1.2) X10*3/uL Eos # (Auto) 0.1 (0.0-0.4) X10*3/uL Baso # (Auto) 0.0 (0.0-0.2) X10*3/uL Abs Immat Gran (auto) 0.03 (0.00-0.03) X10*3/uL Absolute Neuts (auto) 6.5 (2.0-8.3) x10*3/uL Absolute Nucleated RBC 0.000 (0.0-0.012) X10*3/uL Nucleated RBC % (auto) 0.0 (0.0-0.2) /100WBC Sodium 137 (135-145) mmol/L Potassium 3.6 (3.3-5.1) mmol/L Chloride 106 (96-108) mmol/L Carbon Dioxide 22 (22-29) mmol/L Anion Gap 13 (12-20) BUN 11 (9-16) mg/dL Creatinine 0.71 (0.5-1.4) mg/dL Estim Creat Clear Calc 84.0 Estimated GFR > 60 Random Glucose 82 (60-115) mg/dL Calcium 9.0 (8.4-10.2) mg/dL Total Bilirubin 0.1 (0.0-1.0) mg/dL Direct Bilirubin < 0.2 (0.0-0.5) mg/dL AST 20 (5-31) U/L ALT 11 (0-31) U/L Alkaline Phosphatase 80 (39-117) U/L Total Protein 7.4 (6.5-8.0) g/dL Albumin 4.1 (3.5-5.0) g/dL Beta HCG, Quant 1099 mIU/mL Urine Color Yellow Urine Appearance Cloudy Urine pH 6.0 (5.0-9.0) Ur Specific [place] >= 1.030 H (1.005-1.025) Urine Protein Negative (Neg-Trace) mg/dL Urine Glucose (UA) Negative (Negative) mg/dL Urine Ketones Trace (Negative) mg/dL Urine Blood Negative (Negative) Urine Nitrite Negative (Negative) Ur Leukocyte Esterase Trace H (Negative) Urine RBC 0-2 (0-2) /HPF Urine WBC 11-20 H (0-5) /HPF Ur Squamous Epith Cells >20 (0-2) /HPF Urine Bacteria 4+ (None Seen) Hyaline Casts 0-2 (0-2) /LPF Blood Type O Positive Independent Interpretation I performed an independent interpretation of an: Ultrasound Radiology Impression Discussion of test interpretation with radiology: I have reviewed the radiologist's reading. Radiologist Impression: Transabdominal scanning performed for overall anatomy. Transvaginal scanning performed for additional detail. Uterus measures 6.3 x 4.2 x 5.9 cm. There is a tiny cystic area within the endometrium possibly an early gestational sac, but nonspecific. Mean diameter of the tiny cyst is 2.2 mm which would correspond to an estimated gestational age of 4 weeks 5 days. There is no yolk sac or pole. Right ovary measures 2.8 x 2.3 x 3 cm. There is a 2 cm corpus luteal cyst in the right ovary. There is normal color Doppler and arterial/venous spectral tracings within the right ovary. Left ovary measures 3.2 x 1.3 x 2.4 cm. There is no left adnexal mass or fluid collection. There is normal color Doppler and arterial/venous spectral tracings within the left ovary. There is no free fluid in the pelvis. IMPRESSION: Tiny cystic area within the endometrium possibly an early gestational sac, but nonspecific. Follow-up pelvic ultrasound to confirm a viable intrauterine is recommended Medications Administered Discontinued Medications Generic Name Dose Route Start Last Admin Trade Name Freq PRN Reason Stop Dose Admin Nitrofurantoin Macrocrystals 100 mg 04/10/25 02:08 04/10/25 02:31 Nitrofurantoin Monohyd/M-Cryst 100 Mg Capsule PO 04/10/25 02:09 100 mg ONCE ONE Administration Critical Care Time Critical Care Time Critical Care Time: Yes Total Critical Care Time: 35 Attestation: I have personally provided critical care time. Time includes review of lab data, radiology results, discussion with consultants, and monitoring for potential decompensation. Intervention performed as documented. Discharge Plan Discharge Clinical Impression: UTI (urinary tract infection), Positive test, Abdominal pressure Patient Disposition: Home, Self-Care Instructions: Urinary Tract Infection in (ED) Additional Instructions: Please follow-up with your primary care physician tomorrow. If you have any worsening or new symptoms, please return to the emergency room or call 911 Prescriptions: New nitrofurantoin monohyd/m-cryst [Macrobid] 100 mg capsule 100 mg PO Q12H 7 Days Qty: 14 0RF Rx Instructions: must administer with a meal/food No Action famotidine 40 mg tablet 40 mg PO BID Qty: 180 1RF ondansetron 4 mg tablet,disintegrating 4 mg PO Q8H 4 Days Qty: 12 0RF ondansetron 4 mg tablet,disintegrating 4 mg PO DAILY PRN (Reason: nausea and vomiting) 5 Days Qty: 7 0RF PNV cmb#95-ferrous fumarate-FA [ Formula] 28 mg iron- 800 mcg tablet 1 tab PO DAILY Qty: 30 0RF dicyclomine 20 mg tablet 20 mg PO QID 30 Days Qty: 120 1RF escitalopram oxalate 5 mg tablet PO hydroxyzine HCl 25 mg tablet 25 mg PO QID trazodone 50 mg tablet 50 mg PO DAILY Referrals: Cornelius Quijano MD [Physician] - 04/15/25 Print Language: [place]
[2025-04-10 01:33] LABS: MANUAL DIFF FLAG NO
[2025-04-10 01:35] LABS: Basophils Percent Auto 0.2 % (0-2); Eosinophils Absolute Auto 0.1 X10*3/uL (0.0-0.4); Eosinophils Percent Auto 0.7 % (0-4); Hematocrit 35.8 % (37.0-47.0); Hemoglobin 12.4 g/dl (12.0-16.0); Imm Gran Abs Auto 0.03 X10*3/uL (0.00-0.03); Imm Gran Pct Auto 0.3 % (0.0-0.4); Lymphocytes Absolute Auto 2.9 X10*3/uL (1.2-4.9); Lymphocytes Percent Auto 27.7 % (20-40); Mean Corpuscular HGB Conc 34.6 g/dl (31.0-35.0); Mean Corpuscular Volume 83.6 fL (80.0-98.0); Mean Platelet Volume 10.2 fL (9.4-12.3); Monocytes Absolute Auto 0.9 X10*3/uL (0.1-1.2); Monocytes Percent Auto 8.8 % (2-11); Neutrophils Absolute Auto 6.5 x10*3/uL (2.0-8.3); Neutrophils Percent Auto 62.3 % (45-73); Platelet Count 274 X10*3/uL (160-400); Red Blood Count 4.28 X10*6/uL (4.20-5.50); Red Cell Distribution Width 13.4 % (11.0-16.0); White Blood Count 10.4 X10*3/uL (4.8-10.8)
[2025-04-10 01:36] LABS: Appearance Urine Cloudy; Color Urine Yellow; Glucose Urine UA Negative (Negative); Leukocyte Esterase Urine Trace (Negative); Nitrite Urine Negative (Negative); Specific Gravity - Urine >= 1.030 (1.005-1.025); UMIC TRIGGER UACC YES; Urine Blood Negative (Negative); Urine Ketones Trace mg/dL (Negative); Urine Protein Negative (Neg-Trace)
[2025-04-10 01:43] LABS: Bacteria Urine 4+ (None Seen); Hyaline Casts Urine 0-2 /LPF (0-2); RBC Urine 0-2 /HPF (0-2); Squamous Epithelial Cell Urine >20 /HPF (0-2); UACC Culture Trigger YES
[2025-04-10 01:53] LABS: Alanine Aminotransferase 11 U/L (0-31); Albumin Level 4.1 g/dL (3.5-5.0); Anion Gap 13 (12-20); Aspartate Amino Transferase 20 U/L (5-31); Bilirubin Direct < 0.2 mg/dL (0.0-0.5); Bilirubin Total 0.1 mg/dL (0.0-1.0); Blood Urea Nitrogen 11 mg/dL (9-16); Carbon Dioxide 22 mmol/L (22-29); Chloride 106 mmol/L (96-108); Estimated Glomerular Filt Rate > 60; Glucose Random 82 mg/dL (60-115); HCG Quantitative 1099 mIU/mL; Potassium 3.6 mmol/L (3.3-5.1); Sodium 137 mmol/L (135-145); Total Protein 7.4 g/dL (6.5-8.0)
[2025-04-10] MEDS: Nitrofurantoin Monohyd/M-Cryst 100 MG CAPSULE PO (02:31)
[2025-04-10 02:54] LABS: Alkaline Phosphatase 80 U/L (39-117)
[2025-04-10 04:35] VITALS: BP 111/68; PULSE 70; RESP 16; TEMP 36.7; O2SAT 98
[2025-04-10 04:36] VITALS: BP 111/68; PULSE 70; RESP 16; TEMP 36.7; O2SAT 98
== END 2025-04-10 04:36 | disposition home or self-care (01) ==
PROVIDERS: Emergency Provider Emergency Medicine
DX: O23.41 Unspecified infection of urinary tract in pregnancy, first trimester (principal); N39.0 Urinary tract infection, site not specified; O26.891 Other specified pregnancy related conditions, first trimester; R10.2 Pelvic and perineal pain; Z3A.01 Less than 8 weeks gestation of pregnancy
CPT/HCPCS: 36415; 76801; 76817; 80048; 80076; 81001; 84702; 85025; 86900; 86901; 87086; 99284

== ENCOUNTER → 2025-04-10 02:06 | Outpatient (BNV) | payer MEDICAID, SELFPAY | PROVIDERS: Emergency Provider Emergency Medicine; Visit Provider Radiology Diagnostic Radiology | DX: O26.899 Other specified pregnancy related conditions, unspecified trimester (principal); R10.31 Right lower quadrant pain; Z3A.01 Less than 8 weeks gestation of pregnancy | CPT/HCPCS: 76801; 76817 ==

== ENCOUNTER 2025-05-07 06:24 | Emergency (ER) | payer MEDICAID, SELFPAY ==
--- NOTE | ~2025-05-07 | US_ITS ---
EXAMINATION: US OBSTETRICAL ULTRASOUND CLINICAL INFORMATION: Threatened spontaneous , vaginal bleeding and increasing hCG COMPARISON: None available. LMP: 03/10/2025. Gestational age by maternal dates is 7 weeks 1 day. Estimated date of delivery by maternal dates is 12/15/2025. TECHNIQUE: Grayscale and color Doppler imaging of the pelvis was performed transabdominally and transvaginally FINDINGS: There is a single intrauterine gestational sac with visible yolk sac, embryo/fetus, and cardiac activity. There is no significant subchorionic hemorrhage or hematoma. HR: 158 beats per minute. CRL (crown rump length): 16 mm ELISE (estimated date of delivery): 12/16/2025 MATERNAL ADNEXA: The right maternal ovary measures 2.7 x 1.6 x 2.7 cm. Corpus luteum cyst measures up 16 x 18 mm Blood flow shown on color Doppler. The left maternal ovary was nonvisualized There is no significant maternal adnexal mass. No maternal pelvic ascites. US/US OB <= 14 weeks fetus IMPRESSION: Single living intrauterine gestation. Size and dates are concordant. By LMP given at the first ultrasound, estimated date of delivery is 12/15/2025. Electronically signed by: Kyaw Willis MD 05/07/2025 10:03 AM EDT
[2025-05-07 06:27] VITALS: BP 104/69; PULSE 94; RESP 16; TEMP 36.6; O2SAT 98; BMI 20.8
[2025-05-07 06:58] LABS: Hematocrit 37.2 % (37.0-47.0); Hemoglobin 13.0 g/dl (12.0-16.0); Imm Gran Abs Auto 0.04 X10*3/uL (0.00-0.03); Imm Gran Pct Auto 0.3 % (0.0-0.4); Lymphocytes Absolute Auto 2.5 X10*3/uL (1.2-4.9); MANUAL DIFF FLAG NO; Mean Corpuscular HGB Conc 34.9 g/dl (31.0-35.0); Mean Corpuscular Hemoglobin 28.7 pg (27.0-33.0); Mean Corpuscular Volume 82.1 fL (80.0-98.0); NRBC Abs Auto 0.000 X10*3/uL (0.0-0.012); NRBC Pct Auto 0.0 /100WBC (0.0-0.2); Platelet Count 275 X10*3/uL (160-400); Red Blood Count 4.53 X10*6/uL (4.20-5.50); White Blood Count 12.8 X10*3/uL (4.8-10.8)
[2025-05-07 06:59] LABS: Appearance Urine Cloudy; Glucose Urine UA Negative (Negative); PH 5.5 (5.0-9.0); Specific Gravity - Urine 1.020 (1.005-1.025); UMIC TRIGGER UACC YES
[2025-05-07 07:10] LABS: UACC Culture Trigger YES
[2025-05-07 07:21] LABS: Alanine Aminotransferase 17 U/L (0-31); Albumin Level 4.3 g/dL (3.5-5.0); Alkaline Phosphatase 58 U/L (39-117); Anion Gap 14 (12-20); Aspartate Amino Transferase 23 U/L (5-31); Blood Urea Nitrogen 7 mg/dL (9-16); Calcium 9.4 mg/dL (8.4-10.2); Carbon Dioxide 19 mmol/L (22-29); Chloride 105 mmol/L (96-108); Creatinine Clr Calc Pharmacy 96.2; Estimated Glomerular Filt Rate > 60; Lipase 22 U/L (8-78); Potassium 3.2 mmol/L (3.3-5.1); Sodium 135 mmol/L (135-145); Total Protein 7.7 g/dL (6.5-8.0)
--- NOTE | 2025-05-07 07:55 | ED.PREGNANCY ---
HPI - General Chief complaint: Vaginal Bleeding Stated complaint: vaginal bleeding Time Seen by Provider: 05/07/25 07:54 Source: patient and RN notes reviewed Mode of arrival: ambulatory Limitations: no limitations History of Present Illness ED Provider: Becky Love PA-C HPI Narrative: This is a 24-year-old female, - last menstrual period March 10 who presents emergency department with concerns of vaginal bleeding and suprapubic cramping which started several hours ago while she was lying down. Patient reports that yesterday after using the restroom she had some spotting. She states that she laid down after and noticed a ?gush of bright red blood patient reports that this is her 1st , and has not seen OB as of yet. She states that her primary care physician sent a referral to [facility] and has been awaiting a call back. Patient states that she has not had any spotting or complications with this thus far. She does admit to having some nausea and vomiting. Denies taking any medications prior to arrival. She states she was previously on antidepressants and anxiety medications however she discontinued this suddenly after she realize that she was . She denies any fevers, chills, chest pain, shortness of breath, diarrhea or constipation. No urinary symptoms. Denies any other complaints or concerns at this time. MD Complaint: vaginal bleeding Onset (ago): day(s) Pain Consistency: constant Location: pelvis Quality: Cramping Radiation: pelvis Relieving factors: none Exacerbating factors: none Associated symptoms: nausea, vomiting and vaginal bleeding Vaginal discharge: none Vaginal bleeding: none Date of Last Menstrual Period: 03/10/25 Patient : Yes Number of Weeks : 7 OB History - Current : no complications care: none Related Data Home Medications ?Medication ?Instructions ?Recorded ?Confirmed escitalopram oxalate 5 mg tablet mg PO 05/03/24 05/03/24 hydroxyzine HCl 25 mg tablet 25 mg PO QID 05/03/24 05/03/24 trazodone 50 mg tablet 50 mg PO DAILY 05/03/24 05/03/24 Previous Rx's ?Medication ?Instructions ?Recorded dicyclomine 20 mg tablet 20 mg PO QID 30 days #120 tabs 05/23/24 ondansetron 4 mg disintegrating 4 mg PO Q8H 4 days #12 tabs 07/29/24 tablet ondansetron 4 mg disintegrating 4 mg PO DAILY PRN nausea and 08/05/24 tablet vomiting 5 days #7 tabs vit no.95-ferrous 1 tab PO DAILY #30 tabs 08/05/24 fumarate 28 mg-folic acid 800 mcg tablet ( Formula) famotidine 40 mg tablet 40 mg PO BID #180 tabs 08/21/24 nitrofurantoin 100 mg PO Q12H 7 days #14 caps 04/10/25 monohydrate/macrocrystals 100 mg capsule (Macrobid) doxylamine succinate 25 mg tablet 12.5 mg (1/2 x 25 mg) PO BEDTIME 05/07/25 (Unisom (doxylamine)) PRN nausea and vomiting #30 tabs pyridoxine (vitamin B6) 25 mg 25 mg PO TID #30 tabs 05/07/25 tablet Allergies Allergy/AdvReac Type Severity Reaction Status Date / Time tree and shrub pollen Allergy Mild Unknown Verified 05/07/25 06:28 apple (APPLES) Allergy Unknown THROAT Verified 05/07/25 06:28 ITCHY peach (PEACHES) Allergy Unknown ITCHY Verified 05/07/25 06:28 THROAT Review of Systems Review of Systems: Yes all other systems are reviewed and are negative Constitutional: Constitutional: Reports as per [facility] Past Medical History Medical History COVID-19 vaccine series completed GERD (gastroesophageal reflux disease) Depression Herpes COVID-19 virus infection Surgical History [place] teeth extracted Date of Last Menstrual Period: 03/10/25 Family History Family History Mother Cancer of unknown origin Social History Social History Are you a primary home health caregiver to a significant other at home: No Do you presently have visiting nurse or other home services: No Alcohol intake: never Patient Tobacco Use Status: Never used Tobacco Substance Use Type: Marijuana Physical Exam Vital Signs: Vital Signs: Last Vital Signs Temp 98.0 F 05/07/25 12:43 Pulse 83 05/07/25 12:43 Resp 18 05/07/25 12:43 BP 105/66 05/07/25 12:43 Pulse Ox 98 05/07/25 12:43 O2 Del Method Room Air 05/07/25 12:43 BMI result Body Mass Index 20.8 Const: General: cooperative, comfortable and no acute distress Orientation/consciousness: patient oriented x3 Limitations: no limitations HEENT: Head: Yes normal to inspection, Yes normocephalic and Yes atraumatic Ears: hearing grossly normal bilaterally General nose exam: Normal external nose present Face and sinus: Yes normal facial exam Mouth: Normal oral and palatal mucosa present, oropharynx normal and moist mucous membranes Throat: Yes posterior oropharynx normal Eyes: General: appearance normal, both eyes and all related structures Eyelids: Yes eyelids normal Conjunctivae: conjunctivae normal Sclerae: sclerae normal Pupils: Equal, round and reactive pupils present EOM: EOMs intact bilaterally Neck: Neck: Yes normal visual inspection, Yes full ROM and Yes no lymphadenopathy Lymphatic: no lymphadenopathy noted Chest: Chest palpation & inspection: normal inspection of the chest Resp: Effort & Inspection: normal respiratory effort and able to speak in complete sentences Auscultation: clear to auscultation bilaterally, no crackles, no rales, no rhonchi and no wheezes Cardio: Rate: regular rate Rhythm: regular rhythm Heart sounds: S1 normal heart sound present and S2 normal heart sound present GI: Other: Abdomen is soft with mild tenderness palpation in the suprapubic region. No rebound or guarding Inspection: Yes normal to inspection : Other: Pelvic examination performed with HollyVIVIN present at all times. Cervical OS is closed, scant vaginal bleeding noted, no hemorrhage, no clots noted. External Female Exam: normal external appearance Skin: General skin exam: no rashes or lesions noted Trauma: no lacerations or abrasions Wounds: no wounds Neuro: General: patient oriented x3 and moves all extremities Cranial nerves: Yes Equal, round and reactive pupils present Extrem: General: Yes normal to inspection Right upper extremity: normal to inspection Left upper extremity: normal to inspection Right lower extremity: normal to inspection Left lower extremity: normal to inspection Medications Administered Discontinued Medications Generic Name Dose Route Start Last Admin Trade Name Freq PRN Reason Stop Dose Admin Acetaminophen 975 mg 05/07/25 10:33 05/07/25 12:13 Acetaminophen 325 Mg Tablet PO 05/07/25 10:34 975 mg ONCE ONE Administration Medical Decision Making Medical Decision Making [facility] Narrative: This is a 24-year-old female who presents emergency department with concerns of vaginal bleeding which started last night. Patient is currently 7 weeks , last menstrual period was March 14. On arrival, vital signs within normal limits. She is speaking full sentences under no acute distress. Labs were obtained prior to my evaluation, slight leukocytosis at 12.8, her hemoglobin and hematocrit are stable. Platelets within normal limits. She does have slight hypokalemia at 3.2, no evidence of ROHIT. Beta quant is 173,120. Urine with large blood, trace leuk esterases, rbc's, wbc's, squamous cells in urine bacteria. This sample appears to be contaminated. She has no dysuria. Will obtain ultrasound to ensure intrauterine gestation, and assess for viable at this time. Patient was seen here on April 10, 2025, and she did have an ultrasound at that time revealing a tiny cystic area within the endometrium possibly an early gestational sac, nonspecific. Who was also said on her previous record that she was previously in that ended in an > she admits later on that this is factual and is her second . Pt is < 12 weeks therefore rH type not indicated to obtain. >> Ultrasound returned revealing a Single living intrauterine gestation. Size and dates are concordant. By LMP given at the first ultrasound, estimated date of delivery is 12/15/2025. Pt medicated with Tylenol in department. Given pt is not actively bleeding at this time, scant blood seen on pelvic examination with reassuring ultrasound, pt can be discharged with strict return precautions. Discussed case with Dr. Quijano, recommending SAB precautions, continuing pre- vitamins and to follow up with OB in 2 days. Will treat nausea/vomiting with unisom and vitamin b6. Pt understands and agrees with plan. Pt stable for d.c. Differential Diagnosis Differential Diagnoses: The differential diagnosis associated with the presentation includes Threatened , UTI, ectopic , ovarian cyst Admission/Observation Consideration of admission/observation: Escalation of care including admission/observation considered Lab Data [facility] Lab Attestation statement: I reviewed the patient's lab results. See MDM and course 05/07/25 06:45 05/07/25 06:45 Labs: Lab Results 07/01/25 07/01/25 Range/Units 06:45 12:39 WBC 12.8 H (4.8-10.8) X10*3/uL RBC 4.53 (4.20-5.50) X10*6/uL Hgb 13.0 (12.0-16.0) g/dl Hct 37.2 (37.0-47.0) % MCV 82.1 (80.0-98.0) fL MCH 28.7 (27.0-33.0) pg MCHC 34.9 (31.0-35.0) g/dl RDW 12.7 (11.0-16.0) % Plt Count 275 (160-400) X10*3/uL MPV 10.3 (9.4-12.3) fL Immature Gran % (Auto) 0.3 (0.0-0.4) % Neut % (Auto) 72.2 (45-73) % Lymph % (Auto) 19.3 L (20-40) % [place] % (Auto) 7.6 (2-11) % Eos % (Auto) 0.3 (0-4) % Baso % (Auto) 0.3 (0-2) % Lymph # (Auto) 2.5 (1.2-4.9) X10*3/uL [place] # (Auto) 1.0 (0.1-1.2) X10*3/uL Eos # (Auto) 0.0 (0.0-0.4) X10*3/uL Baso # (Auto) 0.0 (0.0-0.2) X10*3/uL Abs Immat Gran (auto) 0.04 H (0.00-0.03) X10*3/uL Absolute Neuts (auto) 9.2 H (2.0-8.3) x10*3/uL Absolute Nucleated RBC 0.000 (0.0-0.012) X10*3/uL Nucleated RBC % (auto) 0.0 (0.0-0.2) /100WBC Sodium 135 (135-145) mmol/L Potassium 3.2 L (3.3-5.1) mmol/L Chloride 105 (96-108) mmol/L Carbon Dioxide 19 L (22-29) mmol/L Anion Gap 14 (12-20) BUN 7 L (9-16) mg/dL Creatinine 0.62 (0.5-1.4) mg/dL Estim Creat Clear Calc 96.2 Estimated GFR > 60 Random Glucose 96 (60-115) mg/dL Calcium 9.4 (8.4-10.2) mg/dL Total Bilirubin 0.3 (0.0-1.0) mg/dL AST 23 (5-31) U/L ALT 17 (0-31) U/L Alkaline Phosphatase 58 (39-117) U/L Total Protein 7.7 (6.5-8.0) g/dL Albumin 4.3 (3.5-5.0) g/dL Lipase 22 (8-78) U/L Beta HCG, Quant 091598 mIU/mL Urine Color Yellow Urine Appearance Cloudy Urine pH 5.5 (5.0-9.0) Ur Specific [place] 1.020 (1.005-1.025) Urine Protein Trace (Neg-Trace) mg/dL Urine Glucose (UA) Negative (Negative) mg/dL Urine Ketones 80 (Negative) mg/dL Urine Blood Large (3+) H (Negative) Urine Nitrite Negative (Negative) Ur Leukocyte Esterase Trace H (Negative) Urine RBC 3-5 H (0-2) /HPF Urine WBC 6-10 H (0-5) /HPF Ur Squamous Epith Cells 11-20 (0-2) /HPF Urine Bacteria 3+ (None Seen) Hyaline Casts 0-2 (0-2) /LPF Chlam trachomat DNA PCR NOT DETECTED (Not Detect.) N.gonorrhoeae DNA (PCR) NOT DETECTED (Not Detect.) T. vaginalis (PCR) NOT DETECTED (Not Detect) Bact vaginosis (PCR) POSITIVE A (Negative) C. krusei/glabrata (PCR) NOT DETECTED (Not Detect) Tiffany group (PCR) DETECTED A (Not Detect) Radiology Impression Discussion of test interpretation with radiology: I have reviewed the radiologist's reading. Radiologist Impression: [address] [address] Ultrasound Report Signed Patient: Mary Mariscal MR#: [id number] : 2000 Acct:[id number] Age/Sex: 24 / F ADM Date: 05/07/25 Loc: .ED Attending Dr: Ordering Physician: Becky Gong Date of Service: 05/07/25 Procedure(s): US OB <= 14 weeks fetus Accession Number(s): [id number] cc: Becky Gong; [facility]~ EXAMINATION: US OBSTETRICAL ULTRASOUND CLINICAL INFORMATION: Threatened spontaneous , vaginal bleeding and increasing hCG COMPARISON: None available. LMP: 03/10/2025. Gestational age by maternal dates is 7 weeks 1 day. Estimated date of delivery by maternal dates is 12/15/2025. TECHNIQUE: Grayscale and color Doppler imaging of the pelvis was performed transabdominally and transvaginally FINDINGS: There is a single intrauterine gestational sac with visible yolk sac, embryo/fetus, and cardiac activity. There is no significant subchorionic hemorrhage or hematoma. HR: 158 beats per minute. CRL (crown rump length): 16 mm ELISE (estimated date of delivery): 12/16/2025 MATERNAL ADNEXA: The right maternal ovary measures 2.7 x 1.6 x 2.7 cm. Corpus luteum cyst measures up 16 x 18 mm Blood flow shown on color Doppler. The left maternal ovary was nonvisualized There is no significant maternal adnexal mass. No maternal pelvic ascites. US/US OB <= 14 weeks fetus IMPRESSION: Single living intrauterine gestation. Size and dates are concordant. By LMP given at the first ultrasound, estimated date of delivery is 12/15/2025. Electronically signed by: Kyaw Willis MD 05/07/2025 10:03 AM EDT Dictated By: Kyaw Willis MD Procedures Perimortem Number of Weeks : 7 Discharge Plan Discharge Clinical Impression: Bleeding in early Patient Disposition: Home, Self-Care Instructions: Threatened Miscarriage (ED), (ED), Acute Nausea and Vomiting (ED) Additional Instructions: Were seen in the emergency department due to vaginal bleeding. Your ultrasound was reassuring. You need to follow-up with OBGYN within the next 2 days. You need to call [facility] OB office to facilitate this. Please be advised that they also have services like [facility]'s which is an emergency room for individuals. If you develop any heavy vaginal bleeding and or worsening pelvic cramping, you need to seek emergent care. Please continue taking your vitamin. Please also take the prescribed Unisom and vitamin B2 to help with nausea. Small meals throughout the day can help with your nausea and vomiting. Prescriptions: New Unisom (doxylamine) 25 mg tablet 12.5 mg PO BEDTIME PRN (Reason: nausea and vomiting) Qty: 30 0RF pyridoxine (vitamin B6) 25 mg tablet 25 mg PO TID Qty: 30 0RF No Action famotidine 40 mg tablet 40 mg PO BID Qty: 180 1RF nitrofurantoin monohyd/m-cryst [Macrobid] 100 mg capsule 100 mg PO Q12H 7 Days Qty: 14 0RF Rx Instructions: must administer with a meal/food ondansetron 4 mg tablet,disintegrating 4 mg PO Q8H 4 Days Qty: 12 0RF ondansetron 4 mg tablet,disintegrating 4 mg PO DAILY PRN (Reason: nausea and vomiting) 5 Days Qty: 7 0RF PNV cmb#95-ferrous fumarate-FA [ Formula] 28 mg iron- 800 mcg tablet 1 tab PO DAILY Qty: 30 0RF dicyclomine 20 mg tablet 20 mg PO QID 30 Days Qty: 120 1RF escitalopram oxalate 5 mg tablet PO hydroxyzine HCl 25 mg tablet 25 mg PO QID trazodone 50 mg tablet 50 mg PO DAILY Interventions: ED Discharge Assessment Last Done: 05/07/25 12:43 Discharge Date/Time: 05/07/25 12:43 Print Language: Romanian
--- NOTE | 2025-05-07 12:12 | PM.OBCN ---
OB Consult Note - [facility] Data Service Date: 05/07/25 Primary Care Provider: Rebekah Sanchez, MARYCARMEN Narrative Mary Mariscal is a 24 year old female - last menstrual period March 14 making her by to date at 7 weeks and 4 days of gestation presenting to the emergency room complaining of vaginal bleeding associated with mild cramping . She denies any fevers, chills, chest pain, shortness of breath, diarrhea or constipation. No urinary symptoms. Denies any other complaints or concerns at this time. In the emergency room the following workup was done: H&H within normal Blood type O positive Pelvic ultrasound showed the following: There is a single intrauterine gestational sac with visible yolk sac, embryo/fetus, and cardiac activity. There is no significant subchorionic hemorrhage or hematoma. HR: 158 beats per minute. CRL (crown rump length): 16 mm ELISE (estimated date of delivery): 12/16/2025 MATERNAL ADNEXA: The right maternal ovary measures 2.7 x 1.6 x 2.7 cm. Corpus luteum cyst measures up 16 x 18 mm Blood flow shown on color Doppler. The left maternal ovary was nonvisualized There is no significant maternal adnexal mass. No maternal pelvic ascites. OB REPLACED BY [facility] Past Medical History Medical History COVID-19 vaccine series completed GERD (gastroesophageal reflux disease) Depression Herpes COVID-19 virus infection Family History Family History Mother Cancer of unknown origin Surgical History Surgical History [place] teeth extracted Social History Social History Are you a primary complex care nurse practitioner to a significant other at home: No Do you presently have visiting nurse or other home services: No Alcohol intake: never Patient Tobacco Use Status: Never used Tobacco Smoked in Last 30 Days: No Use of substances other than those prescribed or required for medical reasons: No Substance Use Type: Marijuana Advance Directives: No Advance Directives Information Provided: Yes Do you have a plan to hurt others: No Plan Patient : Yes Meds Allergies Allergy/AdvReac Type Severity Reaction Status Date / Time tree and shrub pollen Allergy Mild Unknown Verified 05/07/25 06:28 apple (APPLES) Allergy Unknown THROAT Verified 05/07/25 06:28 ITCHY peach (PEACHES) Allergy Unknown ITCHY Verified 05/07/25 06:28 THROAT Home Medications ?Medication ?Instructions ?Recorded ?Confirmed ?Last Taken ?Type escitalopram oxalate 5 mg tablet mg PO 05/03/24 05/03/24 Unknown History hydroxyzine HCl 25 mg tablet 25 mg PO QID 05/03/24 05/03/24 Unknown History trazodone 50 mg tablet 50 mg PO DAILY 05/03/24 05/03/24 Unknown History OB Flowsheet OB Flowsheet & Tools History 0 Elective abortions Para Spontaneous abortions Hx # Term Pregnancies Ectopic pregnancies Hx # Pregnancies Multiple births OB Physical Exam Physical Exam Additional Comments: Pelvic exam per NATALIYA De Luna in the emergency room minimal blood per vagina no active bleeding closed cervix no cervical motion or uterine or adnexal tenderness OB Consult Results Labs 05/07/25 06:45 05/07/25 06:45 Labs: Short CBC 05/07/25 Range/Units 06:45 WBC 12.8 H (4.8-10.8) X10*3/uL Hgb 13.0 (12.0-16.0) g/dl Hct 37.2 (37.0-47.0) % Plt Count 275 (160-400) X10*3/uL BMP 05/07/25 06:45 Sodium 135 Potassium 3.2 L Chloride 105 Carbon Dioxide 19 L BUN 7 L Creatinine 0.62 Calcium 9.4 Liver Function 05/07/25 Range/Units 06:45 Total Bilirubin 0.3 (0.0-1.0) mg/dL AST 23 (5-31) U/L ALT 17 (0-31) U/L Alkaline Phosphatase 58 (39-117) U/L Albumin 4.3 (3.5-5.0) g/dL Urine 05/07/25 Range/Units 06:45 Urine Color Yellow Urine Appearance Cloudy Urine pH 5.5 (5.0-9.0) Ur Specific [place] 1.020 (1.005-1.025) Urine Protein Trace (Neg-Trace) mg/dL Urine Glucose (UA) Negative (Negative) mg/dL OB - CN: A/P Assessment and Plan (1) First trimester bleeding: Status: Acute Assessment and Plan: Recommended the following to NATALIYA De Luna in the ER; Check GC/CT with BV panel and Trichomonas and treat accordingly SAB warnings to be given to patient, she is to come back to emergency room in case of vaginal bleeding and/or pelvic cramping. vitamin 1 tablet p.o. q.d. and follow-up with her OBGYN within 48 hours. I spent a total of 20 minutes reviewing the chart, communicating to the emergency room provider and documenting in the medical record. Time Spent With Patient Time: Total time managing care of this patient today ____ minutes.
[2025-05-07 12:23] VITALS: BP 105/66; PULSE 83; RESP 18; TEMP 36.7; O2SAT 98
[2025-05-07 12:43] VITALS: BP 105/66; PULSE 83; RESP 18; TEMP 36.7; O2SAT 98
[2025-05-07 14:54] LABS: Bacterial Vaginosis PCR POSITIVE (Negative); Candida Group PCR DETECTED (Not Detect); Candida glab krusei PCR NOT DETECTED (Not Detect); Trichomonas vaginalis PCR NOT DETECTED (Not Detect)
[2025-05-07 15:17] LABS: CT PCR NOT DETECTED (Not Detect.); NG PCR NOT DETECTED (Not Detect.)
== END 2025-05-07 12:43 | disposition home or self-care (01) ==
PROVIDERS: Physician Assistant Medical; Emergency Provider Emergency Medicine Emergency Medical Services; PCP Registered Nurse
DX: O20.9 Hemorrhage in early pregnancy, unspecified (principal); O21.0 Mild hyperemesis gravidarum; R25.2 Cramp and spasm; R10.2 Pelvic and perineal pain; Z3A.01 Less than 8 weeks gestation of pregnancy; Z79.899 Other long term (current) drug therapy
CPT/HCPCS: 36415; 76801; 80053; 81001; 81003; 81515; 83690; 84702; 85025; 87086; 87491; 87591; 99284

== ENCOUNTER → 2025-05-07 06:40 | Outpatient (BNV) | payer MEDICAID, SELFPAY | PROVIDERS: Emergency Provider Emergency Medicine Emergency Medical Services; PCP Registered Nurse; Visit Provider Obstetrics & Gynecology | DX: O20.9 Hemorrhage in early pregnancy, unspecified (principal) | CPT/HCPCS: 99447 ==

== ENCOUNTER → 2025-05-07 08:04 | Outpatient (BNV) | payer MEDICAID, SELFPAY | PROVIDERS: Emergency Provider Emergency Medicine Emergency Medical Services; PCP Registered Nurse; Visit Provider Radiology Diagnostic Radiology | DX: O20.0 Threatened abortion (principal); Z3A.01 Less than 8 weeks gestation of pregnancy | CPT/HCPCS: 76801; 76817 ==